=== PATIENT | male | born 1935 | race Caucasian/White ===

== ENCOUNTER 2017-01-29 10:19 | Inpatient (IN) | payer MEDICARE, OTHER ==
--- NOTE | 2017-01-29 10:42 | ED PDOC ---
Arrival/HPI - General Chief Complaint: Weakness/Neurological Deficit Time Seen by Provider: 01/29/17 10:27 Historian: EMS EM Caveat: Altered Mental Status - History of Present Illness Associated Symptoms (Text): 01/29/17 10:39 Patient is brought to the emergency department from home via ambulance. Patient is unsure why he is in the emergency department. He is unable to give any history. EMS reports generalized weakness. There is a dense left-sided hemiparesis. Patient was last seen in the emergency department in December 2015. At that time he had a normal neurological exam and was awake alert oriented 3. He had a normal CT scan of the brain. He signed out AMA and was able to walk out under his own power. Patient has clearly had a neurological event, and the timing is unknown. Therefore, TPA is not indicated. Past Medical History - Infectious Disease Hx of Infectious Diseases: None - Cardiac Hx Cardiac Disorders: Yes Hx Atrial Fibrillation: Yes Hx KS: No Hx Hypertension: Yes Other/Comment: palpitations - Psychiatric Hx Psychophysiologic Disorder: No Hx Anxiety: No Hx Bipolar Disorder: No Hx Depression: No Hx Emotional Abuse: No Hx Hallucinations: No Hx Panic Disorder: No Hx Post Traumatic Stress Disorder: No Hx Psychosis: No Hx Physical Abuse: No Hx Schizophrenia: No Hx Sexual Abuse: No Hx Substance Use: No - Surgical History Other/Comment: Hernia repair - Anesthesia Hx Anesthesia: Yes Hx Anesthesia Reactions: No Hx Malignant Hyperthermia: No - Suicidal Assessment Feels Threatened In Home Enviroment: No Family/Social History - Physician Review Nursing Documentation Reviewed: Yes Family/Social History: Unknown Family HX Smoking Status: Never Smoked Hx Alcohol Use: No Hx Substance Use: No Hx Substance Use Treatment: No Allergies/Home Meds Allergies/Adverse Reactions: Allergies No Known Allergies Allergy (Verified 01/29/17 12:52) Home Medications: Home Meds Medication Instructions Recorded Confirmed Ezetimibe [Zetia] 10 mg PO DAILY 02/16/12 01/29/17 Metformin Hydrochloride [Metformin] 500 mg PO TID 02/16/12 01/29/17 Metoprolol Succinate [Toprol XL] 200 mg PO DAILY 02/16/12 01/29/17 Valsartan [Diovan] 320 mg PO DAILY 02/16/12 01/29/17 Clonidine [Clonidine] 1 appl TD DAILY 06/28/14 01/29/17 Donepezil Hydrochloride [Donepezil 5 mg PO DAILY 06/28/14 01/29/17 Hydrochloride] Furosemide [Furosemide] 40 mg PO DAILY 06/28/14 01/29/17 Potassium Chloride [K-Tab ER] 20 meq PO DAILY 06/28/14 01/29/17 Apixaban [Eliquis] 5 mg PO DAILY 02/16/15 01/29/17 Review of Systems - Review of Systems Systems not reviewed;Unavailable: Altered Mental Status Physical Exam Vital Signs Temp Pulse Resp BP Pulse Ox 01/29/17 12:18 82 22 156/86 H 100 01/29/17 11:35 70 22 159/114 H 100 01/29/17 11:00 96.9 F L 01/29/17 10:34 98.0 F 78 17 159/95 H 99 Temperature: Afebrile Blood Pressure: Hypertensive Pulse: Regular Respiratory Rate: Normal Appearance: Positive for: Well-Appearing, Non-Toxic, Comfortable Pain Distress: None Mental Status: Positive for: other (Awake alert oriented 1 only) Finger Stick Blood Glucose: 193 - Systems Exam Head: Present: Atraumatic, Normocephalic Pupils: Present: PERRL Extroacular Muscles: Present: EOMI Conjunctiva: Present: Normal Mouth: Present: Moist Mucous Membranes Pharnyx: No: ERYTHEMA, EXUDATE, TONSILS ENLARGED Neck: Present: Normal Range of Motion. No: MIDLINE TENDERNESS, Paraspinal Tenderness Respiratory/Chest: Present: Clear to Auscultation, Good Air Exchange, Decreased Breath Sounds. No: Respiratory Distress, Accessory Muscle Use Cardiovascular: Present: Normal S1, S2, Irregular Rhythm (Normal rate). No: Murmurs Abdomen: Present: Normal Bowel Sounds. No: Tenderness, Distention, Peritoneal Signs, Rebound, Guarding Upper Extremity: Present: Normal Inspection. No: Cyanosis, Edema Lower Extremity: Present: Normal Inspection, Other (Right plantar forefoot has a large dark melanocytic collection). No: Edema Neurological: Present: Other (Dense left sided upper and lower hemiparesis. Unable to test sensation coordination gait and stance) Skin: Present: Warm, Dry, Normal Color. No: Rashes Psychiatric: Present: Alert Medical Decision Making ED Course and Treatment: 01/29/17 10:55 EKG shows atrial fibrillation rate approximately [address] and T- wave changes similar to EKG of 01/03/2016 01/29/17 11:19 Patient's son arrived and reports that he last saw his father approximately 2 weeks ago and he was normal at that time. Able to ambulate with no neurological deficits. He spoke with his father yesterday on the telephone and the son reports that the patient seemed "a little out of it" - Lab Interpretations Lab Results: 01/29/17 10:45 01/29/17 10:45 Lab Results 01/29/17 10:45: pO2 27 L, VBG pH 7.32, VBG pCO2 58.0, VBG HCO3 29.9 H, VBG Total CO2 31.7 H, VBG O2 Sat (Calc) 58.2, VBG Base Excess 2.0, VBG Potassium 4.9 , Sodium 141.0, Chloride 103.0, Glucose 204 H, Lactate 1.4, FiO2 21.0, Venous Blood Potassium 4.9 01/29/17 10:45: Alcohol, Quantitative < 10 01/29/17 10:45: Sodium 142, Chloride 103, Potassium 5.0, Carbon Dioxide 30, Anion Gap 14, BUN 26 H, Creatinine 1.2, Est GFR ( Amer) > 60, Est GFR ( Non-Af Amer) 58, Random Glucose 203 H, Calcium 9.6, Phosphorus 3.2, Magnesium 2.1, Total Bilirubin 0.7, AST 19, ALT 22, Alkaline Phosphatase 80, Lactate Dehydrogenase 449, Total Creatine Kinase 28 L, Troponin I < 0.01, Total Protein 7.5, Albumin 3.9, Globulin 3.6, Albumin/Globulin Ratio 1.1 01/29/17 10:45: PT 10.9, INR 1.01, APTT 27.3 01/29/17 10:45: WBC 10.1, RBC 4.80, Hgb 15.6, Hct 45.4, MCV 94.6, MCH 32.5, MCHC 34.4, RDW 13.4, Plt Count 162, MPV 12.1 H, Gran % 65.1, Lymph % (Auto) 24.1 , [place] % (Auto) 8.5 H, Eos % (Auto) 2.2, Baso % (Auto) 0.1, Gran # 6.55 H, Lymph # 2.4, [place] # 0.9 H, Eos # 0.2, Baso # 0.01 - RAD Interpretation Radiology Orders: 01/29/17 10:36 HEAD W/O CONTRAST [CT] Stat 01/29/17 10:37 CHEST PORTABLE [RAD] Stat CT scan of the head as read by the radiologist shows no acute findings. Chest x- ray one view as read by the radiologist shows no acute findings. Category Planner: Radiologist - Medication Orders Current Medication Orders: Discontinued Medications Aspirin (Aspirin Supp) 300 mg RC STAT STA Stop: 01/29/17 11:51 Last Admin: 01/29/17 11:57 Dose: 300 mg NIHSS Scale ([place]) Time Performed: 11:52 - How Severe is the Stoke Baseline Level of Consciousness: 0=Alert LOC to Questions: 0=Both comments correct LOC to commands: 0=Obeys both correctly Best Gaze: 0=Normal Visual: 0=No visual loss Facial: 0=Normal Motor Arm - Left: 4=No movement Motor Arm - Right: 0=No drift Motor Leg - Left: 4=No movement Motor Leg - Right: 0=No drift Limb Ataxia: 0=Absent Sensory: 1=Mild to moderate loss Best Language: 0=No aphasia Dysarthia: 1=Mild to moderate slurring Extinction & Inattention (Neglect): 0=Normal, no object Score: 10 Risk Level: Mod Stroke Risk Disposition/Present on Arrival - Present on Arrival Any Indicators Present on Arrival: No History of DVT/PE: No History of Uncontrolled Diabetes: Yes Urinary Catheter: No History of Decub. Ulcer: No History Surgical Site Infection Following: None - Disposition Have Diagnosis and Disposition been Completed?: Yes Diagnosis: Cerebrovascular accident Disposition: HOSPITALIZED Disposition Time: 11:53 Patient Plan: Admission, Telemetry Patient Problems: Current Active Problems Problem Status Onset Cerebrovascular accident Acute Condition: SERIOUS
[2017-01-29 10:56] LABS: VENOUS BLOOD PH 7.32 (7.32-7.43)
[2017-01-29 10:59] LABS: BASO # 0.01 K/mm3 (0.0-2.0); BASO % 0.1 % (0.0-3.0); EOS # 0.2 (0.0-0.7); EOS % 2.2 % (1.5-5.0); GRAN # 6.55 (1.4-6.5); GRAN % 65.1 % (50.0-68.0); HEMATOCRIT 45.4 % (42.0-52.0); LYMPH # 2.4 (1.2-3.4); LYMPH % 24.1 % (22.0-35.0); MEAN CELL VOLUME 94.6 fl (80.0-105.0); MEAN CORPUSCULAR HEMOGLOBIN 32.5 pg (25.0-35.0); MEAN CORPUSCULAR HGB CONC 34.4 g/dl (31.0-37.0); MEAN PLATELET VOLUME 12.1 fl (7.0-11.0); MONO # 0.9 (0.1-0.6); MONO % 8.5 % (1.0-6.0); RED CELL DISTRIBUTION WIDTH 13.4 % (11.5-14.5); WHITE BLOOD COUNT 10.1 10^3/ul (4.5-11.0)
[2017-01-29 11:05] LABS: ALB/GLOB RATIO 1.1 (1.1-1.8); ALKALINE PHOSPHATASE 80 U/L (38-126); ALT/SGPT 22 U/L (7-56); AST/SGOT 19 U/L (17-59); BILIRUBIN,TOTAL 0.7 mg/dL (0.2-1.3); BLOOD UREA NITROGEN 26 mg/dL (7-21); CALCIUM 9.6 mg/dL (8.4-10.5); CARBON DIOXIDE 30 mmol/L (21-33); CHLORIDE 103 mmol/L (98-107); GFR AFRICAN-AMERICAN > 60; GLUCOSE,RANDOM 203 mg/dL (70-110); INR 1.01 (0.93-1.08); MAGNESIUM 2.1 mg/dL (1.7-2.2); PARTIAL THROMBOPLASTIN TIME 27.3 Seconds (23.7-30.8); PHOSPHOROUS 3.2 mg/dL (2.5-4.5); SODIUM 142 mmol/L (132-148); TOTAL PROTEIN 7.5 g/dL (5.8-8.3)
[2017-01-29 11:16] LABS: TROPONIN I < 0.01 ng/mL
--- NOTE | 2017-01-29 11:19 | RAD ---
HISTORY: ams COMPARISON: Chest x-ray performed 01/03/16 TECHNIQUE: Chest, one view. FINDINGS: Hypoinflation. The patient's chin obscures evaluation of the left lung apex. LUNGS: No focal consolidation. Bilateral hilar prominence. Chronic appearing interstitial markings. PLEURA: No significant pleural effusion identified. No definite pneumothorax . CARDIOVASCULAR: Cardiomegaly. OSSEOUS STRUCTURES: Degenerative changes. VISUALIZED UPPER ABDOMEN: Unremarkable. OTHER FINDINGS: None. IMPRESSION: No focal consolidation, significant pleural effusion, or definite pneumothorax identified. Bilateral hilar prominence. Chronic appearing interstitial markings. Cardiomegaly.
--- NOTE | 2017-01-29 11:41 | CT ---
PROCEDURE: CT HEAD WITHOUT CONTRAST. HISTORY: left weakness COMPARISON: Noncontrast head CT performed 01/03/16 TECHNIQUE: Axial computed tomography images were obtained through the head/brain without intravenous contrast. Radiation dose: Total exam DLP = 1713.80 mGy-cm. This CT exam was performed using one or more of the following dose reduction techniques: Automated exposure control, adjustment of the mA and/or kV according to patient size, and/or use of iterative reconstruction technique. FINDINGS: Examination limited by patient obliquity. HEMORRHAGE: No intracranial hemorrhage. BRAIN: Diffuse atrophy with prominence of the ventricles and sulci noted. No mass effect or edema. Dense intracranial atherosclerotic calcifications. Scattered periventricular and subcortical white matter hypodensities, which are nonspecific, but often seen with chronic microvascular ischemic disease. VENTRICLES: No hydrocephalus. CALVARIUM: Unremarkable. PARANASAL SINUSES: Opacification of the bilateral maxillary sinuses. Mild mucosal thickening of the ethmoid air cells. MASTOID AIR CELLS: Unremarkable as visualized. No inflammatory changes. OTHER FINDINGS: None. IMPRESSION: Generalized atrophy. Nonspecific white matter changes. Please note that MRI with diffusion imaging is more sensitive in the detection of acute ischemic event. Opacification of the bilateral maxillary sinuses. Mild mucosal thickening of the ethmoid air cells. Correlate clinically for sinusitis.
[2017-01-29 13:17] LABS: URINE BILIRUBIN NEGATIVE (NEGATIVE); URINE BLOOD NEGATIVE (NEGATIVE); URINE GLUCOSE (UA) 100 mg/dL (NEGATIVE); URINE KETONE NEGATIVE (NEGATIVE); URINE LEUKOCYTE ESTERASE NEGATIVE Leu/uL (NEGATIVE); URINE PROTEIN 30 mg/dL (<30 mg/dL); URINE UROBILINOGEN 0.2 E.U./dL (<1 E.U./dL)
[2017-01-29 13:18] LABS: URINE APPEARANCE CLEAR (CLEAR); URINE COLOR LIGHT YELLOW (YELLOW)
[2017-01-29 13:41] LABS: URINE BACTERIA SMALL (NEG); URINE EPITHELIAL CELLS 0 - 2 /hpf (0-5); URINE RBC 0 - 2 /hpf (0-2); URINE WBC 0 - 2 /hpf (0-6)
[2017-01-29 15:50] VITALS: BMI 34.1
[2017-01-29] MEDS ORDERED: Pneumococcal 23-Valent Vaccine IM ONE (15:50)
[2017-01-29] MEDS: Metoprolol Succinate 100 mg XL Tab PO SCH (17:49)
[2017-01-29] MEDS: Potassium Chloride 20 mEq ER Tab PO SCH (17:49)
[2017-01-29] MEDS: Sodium Chloride 0.45% 1,000 ML IV SCH (17:50)
--- NOTE | 2017-01-29 23:39 | CP.PCM.PN ---
Subjective - Date & Time of Evaluation Date of Evaluation: 01/29/17 Time of Evaluation: 23:39 - Subjective Subjective: Patient was seen because nurse had called and told that family members are in the room and they want patient to have xanax as patient gets nervous when family members are in the room. Family members are going to stay overnight. Patient has no complaint at this time. Medical record was reviewed. 81 year old male was admitted with right sided hemiparesis, was not able tell what happened to him. PMH:Atrial fibrillation,HTN,hernia repair. Objective - Vital Signs/Intake and Output Vital Signs (last 24 hours): Temp Pulse Resp BP Pulse Ox 97.8 F 83 20 161/106 H 100 01/29/17 18:00 01/29/17 22:00 01/29/17 18:00 01/29/17 21:10 01/29/17 12:18 Intake and Output: 01/29/17 01/30/17 18:59 06:59 Intake Total 0 Output Total 0 Balance 0 - Medications Medications: Current Medications Apixaban (Eliquis) 5 mg PO DAILY [facility] PRN Reason: Protocol Last Admin: 01/29/17 17:48 Dose: 5 mg Clonidine HCl (Catapres Tts1 0.1 Mg/24 Hr) 1 patch TD Sa@1800 [facility] Last Admin: 01/29/17 17:50 Dose: 1 patch Donepezil HCl (Aricept) 10 mg PO HS [facility] Last Admin: 01/29/17 22:05 Dose: 10 mg Ezetimibe (Zetia) 10 mg PO DAILY [facility] Last Admin: 01/29/17 17:49 Dose: 10 mg Furosemide (Lasix) 40 mg PO DAILY [facility] Last Admin: 01/29/17 17:49 Dose: 40 mg Sodium Chloride (Sodium Chloride 0.45%) 1,000 mls @ 75 mls/hr IV .[id number] [facility] Last Admin: 01/29/17 17:50 Dose: 75 mls/hr Metformin HCl (Glucophage) 500 mg PO WM [facility] Last Admin: 01/29/17 17:47 Dose: Not Given Metoprolol Succinate (Toprol Xl) 200 mg PO BRK [facility] Last Admin: 01/29/17 17:49 Dose: 200 mg Potassium Chloride (K-Dur 20 Meq Er Tab) 20 meq PO BRK [facility] Last Admin: 01/29/17 17:49 Dose: 20 meq Valsartan (Diovan) 320 mg PO DAILY [facility] Last Admin: 01/29/17 17:49 Dose: 320 mg - Labs Labs: PT 10.9 Seconds (9.9-11.8) 01/29/17 10:45 INR 1.01 (0.93-1.08) 01/29/17 10:45 APTT 27.3 Seconds (23.7-30.8) 01/29/17 10:45 Laboratory Last Values WBC 10.1 10^3/ul (4.5-11.0) 01/29/17 10:45 RBC 4.80 10^6/uL (3.5-6.1) 01/29/17 10:45 Hgb 15.6 g/dL (14.0-18.0) 01/29/17 10:45 Hct 45.4 % (42.0-52.0) 01/29/17 10:45 MCV 94.6 fl (80.0-105.0) 01/29/17 10:45 MCH 32.5 pg (25.0-35.0) 01/29/17 10:45 MCHC 34.4 g/dl (31.0-37.0) 01/29/17 10:45 RDW 13.4 % (11.5-14.5) 01/29/17 10:45 Plt Count 162 10^3/uL (120.0-450.0) 01/29/17 10:45 MPV 12.1 fl (7.0-11.0) H 01/29/17 10:45 Gran % 65.1 % (50.0-68.0) 01/29/17 10:45 Lymph % (Auto) 24.1 % (22.0-35.0) 01/29/17 10:45 [place] % (Auto) 8.5 % (1.0-6.0) H 01/29/17 10:45 Eos % (Auto) 2.2 % (1.5-5.0) 01/29/17 10:45 Baso % (Auto) 0.1 % (0.0-3.0) 01/29/17 10:45 Gran # 6.55 (1.4-6.5) H 01/29/17 10:45 Lymph # 2.4 (1.2-3.4) 01/29/17 10:45 [place] # 0.9 (0.1-0.6) H 01/29/17 10:45 Eos # 0.2 (0.0-0.7) 01/29/17 10:45 Baso # 0.01 K/mm3 (0.0-2.0) 01/29/17 10:45 PT 10.9 Seconds (9.9-11.8) 01/29/17 10:45 INR 1.01 (0.93-1.08) 01/29/17 10:45 APTT 27.3 Seconds (23.7-30.8) 01/29/17 10:45 pO2 27 mm/Hg (30-55) L 01/29/17 10:45 VBG pH 7.32 (7.32-7.43) 01/29/17 10:45 VBG pCO2 58.0 (40-60) 01/29/17 10:45 VBG HCO3 29.9 mmol/l (21-28) H 01/29/17 10:45 VBG Total CO2 31.7 mmol.L (22-28) H 01/29/17 10:45 VBG O2 Sat (Calc) 58.2 % (40-65) 01/29/17 10:45 VBG Base Excess 2.0 mmol/L (0.0-2.0) 01/29/17 10:45 VBG Potassium 4.9 mmol/L (3.6-5.2) 01/29/17 10:45 Sodium 141.0 mmol/L (132-148) 01/29/17 10:45 Chloride 103.0 mmol/L (98-107) 01/29/17 10:45 Glucose 204 mg/dl (75-110) H 01/29/17 10:45 Lactate 1.4 mmol/L (0.7-2.1) 01/29/17 10:45 FiO2 21.0 % 01/29/17 10:45 Sodium 142 mmol/L (132-148) 01/29/17 10:45 Potassium 5.0 mmol/L (3.6-5.0) 01/29/17 10:45 Chloride 103 mmol/L (98-107) 01/29/17 10:45 Carbon Dioxide 30 mmol/L (21-33) 01/29/17 10:45 Anion Gap 14 (10-20) 01/29/17 10:45 BUN 26 mg/dL (7-21) H 01/29/17 10:45 Creatinine 1.2 mg/dL (0.5-1.4) 01/29/17 10:45 Est GFR ( Amer) > 60 01/29/17 10:45 Est GFR (Non-Af Amer) 58 01/29/17 10:45 POC Glucose (mg/dL) 197 mg/dL (65-110) H 01/29/17 17:46 Random Glucose 203 mg/dL (70-110) H 01/29/17 10:45 Calcium 9.6 mg/dL (8.4-10.5) 01/29/17 10:45 Phosphorus 3.2 mg/dL (2.5-4.5) 01/29/17 10:45 Magnesium 2.1 mg/dL (1.7-2.2) 01/29/17 10:45 Total Bilirubin 0.7 mg/dL (0.2-1.3) 01/29/17 10:45 AST 19 U/L (17-59) 01/29/17 10:45 ALT 22 U/L (7-56) 01/29/17 10:45 Alkaline Phosphatase 80 U/L (38-126) 01/29/17 10:45 Lactate Dehydrogenase 449 U/L (333-699) 01/29/17 10:45 Total Creatine Kinase 28 U/L (35-230) L 01/29/17 10:45 Troponin I < 0.01 ng/mL 01/29/17 10:45 Total Protein 7.5 g/dL (5.8-8.3) 01/29/17 10:45 Albumin 3.9 g/dL (3.0-4.8) 01/29/17 10:45 Globulin 3.6 gm/dL 01/29/17 10:45 Albumin/Globulin Ratio 1.1 (1.1-1.8) 01/29/17 10:45 Venous Blood Potassium 4.9 mmol/L (3.6-5.2) 01/29/17 10:45 Urine Color Light yellow (YELLOW) 01/29/17 12:50 Urine Appearance Clear (CLEAR) 01/29/17 12:50 Urine pH 7.0 (4.7-8.0) 01/29/17 12:50 Ur Specific [place] 1.020 (1.005-1.035) 01/29/17 12:50 Urine Protein 30 mg/dL (<30 mg/dL) H 01/29/17 12:50 Urine Glucose (UA) 100 mg/dL (NEGATIVE) H 01/29/17 12:50 Urine Ketones Negative mg/dL (NEGATIVE) 01/29/17 12:50 Urine Blood Negative (NEGATIVE) 01/29/17 12:50 Urine Nitrate Negative (NEGATIVE) 01/29/17 12:50 Urine Bilirubin Negative (NEGATIVE) 01/29/17 12:50 Urine Urobilinogen 0.2 E.U./dL (<1 E.U./dL) 01/29/17 12:50 Ur Leukocyte Esterase Negative [place]/uL (NEGATIVE) 01/29/17 12:50 Urine RBC 0 - 2 /hpf (0-2) 01/29/17 12:50 Urine WBC 0 - 2 /hpf (0-6) 01/29/17 12:50 Ur Epithelial Cells 0 - 2 /hpf (0-5) 01/29/17 12:50 Urine Bacteria Small (NEG) 01/29/17 12:50 Hyaline Casts 0 - 2 /hpf 01/29/17 12:50 Urine Opiates Screen Negative (NEGATIVE) 01/29/17 12:50 Urine Methadone Screen Negative (NEGATIVE) 01/29/17 12:50 Ur Barbiturates Screen Negative (NEGATIVE) 01/29/17 12:50 Ur Phencyclidine Scrn Negative (NEGATIVE) 01/29/17 12:50 Ur Amphetamines Screen Negative (NEGATIVE) 01/29/17 12:50 U Benzodiazepines Scrn Negative (NEGATIVE) 01/29/17 12:50 U Oth Cocaine Metabols Negative (NEGATIVE) 01/29/17 12:50 U Cannabinoids Screen Negative (NEGATIVE) 01/29/17 12:50 Alcohol, Quantitative < 10 mg/dL (0-10) 01/29/17 10:45 - Constitutional Appears: Well, No Acute Distress - Head Exam Head Exam: ATRAUMATIC, NORMAL INSPECTION, NORMOCEPHALIC - Eye Exam Eye Exam: Normal appearance - ENT Exam ENT Exam: Normal External Ear Exam - Neck Exam Neck Exam: Normal Inspection - Respiratory Exam Respiratory Exam: NORMAL BREATHING PATTERN - Cardiovascular Exam Cardiovascular Exam: absent: JVD - GI/Abdominal Exam GI & Abdominal Exam: absent: Distended - Rectal Exam Rectal Exam: Deferred - Exam Additional comments: Deferred. - Back Exam Back Exam: NORMAL INSPECTION - Neurological Exam Neurological Exam: Alert, Awake - Psychiatric Exam Psychiatric exam: Anxious - Skin Skin Exam: Normal Color Assessment and Plan - Assessment and Plan (Free Text) Assessment: Anxiety. CVA. Atrial fibrillation. Hypertension. Dehydration. Plan: Xanax 0.25mg po stat. Continue present management.
--- NOTE | 2017-01-30 01:57 | CARD ---
APPROVED REPORT EKG Measurement Heart [id number] <Conclusion> Atrial fibrillation Left axis deviation Voltage criteria for left ventricular hypertrophy Nonspecific ST and T wave abnormality Abnormal ECG
[2017-01-30] MEDS: Sodium Chloride 0.45% 1,000 ML IV SCH (06:38)
[2017-01-30] MEDS: Metoprolol Succinate 100 mg XL Tab PO SCH (09:11)
[2017-01-30] MEDS: Potassium Chloride 20 mEq ER Tab PO SCH (09:12)
--- NOTE | 2017-01-30 14:35 | CT ---
PROCEDURE: CT HEAD WITHOUT CONTRAST. HISTORY: cva COMPARISON: Noncontrast head CT performed 01/29/17 TECHNIQUE: Axial computed tomography images were obtained through the head/brain without intravenous contrast. Radiation dose: Total exam DLP = 871.01 mGy-cm. This CT exam was performed using one or more of the following dose reduction techniques: Automated exposure control, adjustment of the mA and/or kV according to patient size, and/or use of iterative reconstruction technique. FINDINGS: Streak artifact obscures evaluation of the skullbase. HEMORRHAGE: No intracranial hemorrhage. BRAIN: Diffuse atrophy with prominence of the ventricles and sulci noted. Dense intracranial atherosclerotic calcifications. No mass effect or edema. Scattered periventricular and subcortical white matter hypodensities, which are nonspecific, but often seen with chronic microvascular ischemic disease. Please note that MRI with diffusion imaging is more sensitive in the detection of acute ischemic event. VENTRICLES: No hydrocephalus. CALVARIUM: Unremarkable. PARANASAL SINUSES: Opacification of bilateral maxillary sinuses. MASTOID AIR CELLS: Unremarkable as visualized. No inflammatory changes. OTHER FINDINGS: None. IMPRESSION: Generalized atrophy. Nonspecific white matter changes.
[2017-01-30] MEDS: Insulin Reg-LOW-Coverage SC SCH ×2 (17:45→22:25)
[2017-01-30] MEDS: Nystatin 100,000 Units/gm Topical Pow(15 gm) TOP SCH (17:52)
--- NOTE | 2017-01-30 18:01 | CON ---
DATE: 01/30/2017 CHIEF COMPLAINT: Left-sided weakness. HISTORY OF PRESENT ILLNESS: This is a 81-year-old man with past medical history of atrial fibrillation on Eliquis, dyslipidemia, hypertension, history of hernia repair, history of cognitive impairment on Aricept. He apparently woke up and was noticed by the family members that he had some left-sided weakness with some slurred speech. During my evaluation, he does have left-sided neglect and left-sided weakness, decreased tone on the left side compared to the right. He had elevated systolic and diastolic blood pressures when he was in the ER. His swallow evaluations have been done. The patient's evaluation therapist recommended dysphagia precautions and to continue with IV medications for now. CAT scan of the head showed no acute intracranial abnormality, some mild encephalomalacia on the right frontoparietal area likely from prior CVA. PAST MEDICAL HISTORY: History of atrial fibrillation, hypertension, dyslipidemia, hernia repair. REVIEW OF SYSTEMS: A 14-point review of systems is negative except per the HPI. SOCIAL HISTORY: No illicit drug use, smoking, or EtOH abuse. FAMILY HISTORY: Noncontributory. MEDICATIONS: Reviewed by nurse practitioner, see med reconciliation sheet.. ALLERGIES: NO KNOWN DRUG ALLERGIES. PHYSICAL EXAMINATION VITAL SIGNS: Temperature 98.5, pulse rate of 89, blood pressure 170/91, respiratory rate of 18, oxygen saturation 97% via room air. GENERAL: The patient is sitting up in bed, in no acute distress. HEENT: Head is atraumatic and normocephalic. PERRLA. Extraocular muscles are intact. NECK: Supple. No JVD. No adenopathy noted. LUNGS: Clear to auscultation. No adventitious sounds. HEART: S1 and S2, normal rate and rhythm. No murmurs, rubs, or gallops. ABDOMEN: Soft, nontender, nondistended. Bowel sounds are present. EXTREMITIES: No clubbing. No cyanosis. Peripheral pulses 2+ felt bilaterally. NEUROLOGIC: The patient is alert, oriented to person and place, not much to month and year. Speech is hypophonic with some mild dysarthria. Cranial nerves II through XII intact except for some left facial droop. Motor exam: Decreased tone on the left upper and lower extremities compared to the right, left-sided weakness compared to the right. Left toe upgoing, right toe equivocal. Sensory exam: Withdrawals are localized to noxious stimulus. There is sensory neglect on the left. DTRs are 2+ throughout, 1 at the ankles. Coordination and gait deferred for now. LABORATORY DATA: Sodium is 142, potassium is 5, chloride of 103, carbon dioxide 30, BUN of 26, creatinine 1.2, random glucose of 203. ASSESSMENT AND PLAN: This is a 81-year-old man with past medical history of atrial fibrillation on Eliquis, dyslipidemia, hypertension, who came in to the hospital because it was noticed by the family when he woke up that he had left-sided weakness and mild left facial flattening of the nasolabial fold. Upon my neuro examination, he does have left-sided hemiparesis and left-sided neglect. His left-sided weakness is likely secondary to right MCA territory infarct likely secondary to diffuse atherosclerosis superimposed on underlying uncontrolled hypertension, dyslipidemia. At this time, recommend: 1. Permissive hypertension for 24 hours and over 24 hours we will decrease to goal of 130 to 140 mmHg. 2. For now, since the patient cannot swallow, give rectal aspirin and eventually when the patient passes the swallow evaluation, he will eventually be back on his Eliquis. 3. Continue with Aricept 10 mg p.o. at bedtime for cognitive impairment. 4. We will recommend a homocystine level and A1c. 5. Carotid Doppler bilaterally as well as vertebral arteries. 6. MRI of the brain without contrast to search for an acute infarct. 7. Physical and occupational therapy evaluation and treatment. The patient will eventually need acute rehab. 8. At this time, continue current present medical management. Case discussed with the family. Jonathan Cuevas MD
[2017-01-30] MEDS ORDERED: Iohexol 350 MG/100 ML VIAL ONE (18:54)
[2017-01-30] MEDS ORDERED: Iodixanol 320 MG/ML 100 ML BOTTLE IV ONE (19:23)
--- NOTE | 2017-01-30 19:45 | MRI ---
EXAM: MR Head Without Intravenous Contrast CLINICAL HISTORY: The patient age is 81 years old and is male; Signs and symptoms; Altered mental status/memory loss; Confusion or disorientation; Additional info: CVA Facility exam id and description: Mri br s brain without contrast TECHNIQUE: Magnetic resonance images of the head/brain without intravenous contrast in multiple planes. COMPARISON: No relevant prior studies available. FINDINGS: Artifacts: Motion artifact significantly limits this study. Brain: Restricted diffusion is identified within the medial right frontal lobe, consistent with acute infarct. There are scattered foci of high FLAIR signal intensity within the cerebral white matter, with FLAIR hyperintensity most significant in the periventricular region. There is no mass effect or restricted diffusion associated with these foci. In a patient this age, this likely represents chronic small vessel ischemic disease. There is prominence of the ventricles and sulci, compatible with atrophy. FLAIR hyperintense gliosis is visualized in the area of restricted diffusion. Ventricles: There is mild ventriculomegaly. Normal pressure hydrocephalus cannot be excluded. Bones/joints: No acute abnormality. Sinuses: Artifact limits evaluation of the maxillary sinuses and ethmoid air cells. Mastoid air cells: No mastoid effusion. Orbits: Suboptimal evaluation due to artifact. Other: There is a high riding right internal jugular bulb. IMPRESSION: 1. Restricted diffusion is identified within the medial right frontal lobe, consistent with acute infarct. 2. There are scattered foci of high FLAIR signal intensity within the cerebral white matter, with FLAIR hyperintensity most significant in the periventricular region. In a patient this age, this likely represents chronic small vessel ischemic disease. 3. Atrophy. 4. There is mild ventriculomegaly. Normal pressure hydrocephalus cannot be excluded. 5. Additional findings described above. EXAM: MR Angiography Head Without Intravenous Contrast EXAM DATE/TIME: 01/30/2017 1:32 PM CLINICAL HISTORY: The patient age is 81 years old and is male; Signs and symptoms; Altered mental status/memory loss; Confusion or disorientation; Additional info: CVA Facility exam id and description: Mri br s brain without contrast TECHNIQUE: Magnetic resonance angiography images of the head without intravenous contrast. COMPARISON: CT - HEAD W/O CONTRAST 01/29/2017 11:17:07 AM FINDINGS: Right internal carotid artery: Nondiagnostic evaluation due to artifact. Right anterior cerebral artery: Nondiagnostic evaluation due to artifact. Right middle cerebral artery: Nondiagnostic evaluation due to artifact. Right posterior cerebral artery: Nondiagnostic evaluation due to artifact. Right vertebral artery: Nondiagnostic evaluation due to artifact. Left internal carotid artery: Flow is visualized within the left internal carotid artery, but the evaluation is otherwise nondiagnostic due to artifact. Left anterior cerebral artery: Nondiagnostic evaluation due to artifact. Left middle cerebral artery: Nondiagnostic evaluation due to artifact. Left posterior cerebral artery: Nondiagnostic evaluation due to artifact. Left vertebral artery: The basilar artery and distal left vertebral artery are patent. Basilar artery: See above. IMPRESSION: The basilar artery and distal left vertebral artery are patent. The study is otherwise nondiagnostic. Repeat MRA is recommended.
--- NOTE | 2017-01-30 20:49 | CT ---
EXAM: CT Angiography Head With Intravenous Contrast EXAM DATE/TIME: 01/30/2017 3:41 PM CLINICAL HISTORY: The patient age is 81 years old and is male; Condition or disease; Cerebrovascular disease; Patient HX: CVA Facility exam id and description: Ct angiohd angiography head TECHNIQUE: Axial computed tomographic angiography images of the head with intravenous contrast using CT angiography protocol. All CT scans at this facility use one or more dose reduction techniques, viz.: automated exposure control; ma/kV adjustment per patient size (including targeted exams where dose is matched to indication; i.e. head); or iterative reconstruction technique. MIP reconstructed images were created and reviewed. Coronal and sagittal reformatted images were created and reviewed. CONTRAST: 97 mL of OMNIPAQUE 350 administered intravenously. COMPARISON: CT - HEAD W/O CONTRAST 01/30/2017 1:56:25 PM FINDINGS: Right internal carotid artery: There is atherosclerosis of the distal internal carotid arteries bilaterally, with less than 50% stenosis bilaterally. No aneurysm. Right anterior cerebral artery: There is severe stenosis or occlusion of the A3 segment of the right anterior cerebral artery, with flow poorly visualized distal to this region. No aneurysm. Right middle cerebral artery: No occlusion or significant stenosis. No aneurysm. Right posterior cerebral artery: No occlusion or significant stenosis. No aneurysm. Right vertebral artery: There is stenosis of the distal right vertebral artery. Left internal carotid artery: See above. Left anterior cerebral artery: No occlusion or significant stenosis. No aneurysm. Left middle cerebral artery: No occlusion or significant stenosis. No aneurysm. Left posterior cerebral artery: No occlusion or significant stenosis. No aneurysm. Left vertebral artery: A dominant distal left vertebral artery is visualized. Basilar artery: No significant stenosis. No occlusion. No aneurysm. Brain: There is prominence of the ventricles and sulci, compatible with atrophy. Sinuses: There is opacification of the bilateral maxillary sinuses. IMPRESSION: 1. There is severe stenosis or occlusion of the A3 segment of the right anterior cerebral artery, with flow poorly visualized distal to this region. 2. 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 3. There is stenosis of the distal right vertebral artery. 4. A dominant distal left vertebral artery is visualized. 5. There is atherosclerosis of the distal internal carotid arteries bilaterally, with less than 50% stenosis bilaterally. 6. Atrophy. 7. Incidental/non-acute findings are described above.
[2017-01-31] MEDS: Sodium Chloride 0.45% 1,000 ML IV SCH (00:11)
--- NOTE | 2017-01-31 06:27 | CON ---
DATE: 01/30/2017 REASON FOR CONSULTATION: Status post stroke, left upper and lower extremity weakness, and may have sleep apnea syndrome. HISTORY OF PRESENT ILLNESS: This is a 81-year-old gentleman. found him to have weakness of the left upper extremity with some facial droop and called ambulance and brought him to the emergency room. He was seen by Neurology, and CTA and MRI of the brain have been ordered. He has a known history of atrial fibrillation, hypertension. Presently lying in the bed, is at bedside. Nursing is trying to get an IV. No headache, rhinitis, or snoring. No chest pain, no palpitation. No nausea, vomiting, or diarrhea. No leg pain, no leg swelling. PAST MEDICAL HISTORY: As per history of present illness. Diabetes. ALLERGIES: NONE KNOWN. FAMILY HISTORY: No significant cardiopulmonary disease reported. SOCIAL HISTORY: Nonsmoker, nondrinker. MEDICATIONS: He is on hydralazine 10 mg IV q.6 hours p.r.n., Aricept 10 mg daily, aspirin 300 mg rectally daily, Ativan 0.5 mg p.r.n., Catapres patch 0.1 mg, Diovan 320 mg daily, Eliquis 5 mg twice a day, insulin coverage, potassium 20 mEq daily, Lasix 40 mg daily, Lipitor 10 mg daily, IV fluid half normal saline 75 mL/hour, Toprol XL 200 mg daily, Zetia 10 mg daily. REVIEW OF SYSTEMS: Denies any headache or rhinitis. No chest pain. No nausea, no abdominal pain. No dysuria. No leg pain or leg swelling. He has left upper and lower extremity weakness. PHYSICAL EXAMINATION GENERAL: Lying in the bed, in no acute distress, has facial droop. VITAL SIGNS: Temperature is 98, heart rate is 81, respiratory rate 18, blood pressure 185/101, pulse ox 97% on room air. HEENT: Moist mucous membranes. Crowded airway. Mallampati score is 4. NECK: Supple. No JVD. LUNGS: Fair air flow with a few rhonchi. HEART: S1, S2. ABDOMEN: Soft, nontender. No organomegaly. EXTREMITIES: No edema. NEUROLOGIC: Awake, alert, follows simple commands. LABORATORY DATA: Shows hemoglobin 15.6, hematocrit 45.4, WBC 10.1, platelets 162. INR 1.01, PTT 27. Blood gases, which is VB shows pH 7.32, pCO2 of 58, O2 of 27. Sodium 142, potassium 5.0, chloride 103, bicarbonate 30, BUN 26, creatinine 1.2, glucose 168, calcium 9.6, phosphorus 3.2, magnesium 2.1, AST 19, ALT 22, alkaline phosphatase is 80. LDH 49. Troponin less than 0.01. Toxicology unremarkable. Urinalysis shows protein 30+, glucose is 100. Microbiology, blood cultures have been negative. 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 There is stenosis of the distal right vertebral artery. A dominant distal left vertebral artery is visualized. There is atherosclerosis of distal internal carotid artery bilaterally with less than 50% stenosis bilaterally. MRI of the brain was done which shows right internal carotid artery with some artifact. There is a restricted diffusion identified within the medial right frontal lobe consistent with acute infarct. There are scattered foci of the higher FLAIR signal intensity within the cerebral white matter with FLAIR hyperintensity most significant in the periventricular region, likely representing chronic small vessel disease. IMPRESSION AND PLAN: Stroke, history of hypertension, diabetes, atrial fibrillation. He has a component of sleep apnea syndrome. Case was discussed nursing staff and also spoke to the patient's at bedside. Continue IV fluid, continue anticoagulation, gastric prophylaxis. Neurology followup. We will place him on CPAP 8 cm with 30% oxygen while sleeping. Echocardiogram to evaluate cardiac function and rule out LV thrombus. We will suggest placing him on antiplatelet and statins. Thank you and we will follow with you. Huber Lang MD
[2017-01-31 07:05] LABS: BLOOD UREA NITROGEN 19 mg/dL (7-21); CALCIUM 9.1 mg/dL (8.4-10.5); CARBON DIOXIDE 25 mmol/L (21-33); CHLORIDE 99 mmol/L (98-107); CHOLESTEROL 167 mg/dL (130-200); GFR AFRICAN-AMERICAN > 60; GLUCOSE,RANDOM 154 mg/dL (70-110); POTASSIUM 3.3 mmol/L (3.6-5.0); SODIUM 138 mmol/L (132-148)
[2017-01-31 07:11] LABS: BASO # 0.02 K/mm3 (0.0-2.0); BASO % 0.1 % (0.0-3.0); EOS # 0.1 (0.0-0.7); EOS % 0.9 % (1.5-5.0); GRAN # 10.03 (1.4-6.5); GRAN % 72.2 % (50.0-68.0); HEMATOCRIT 48.8 % (42.0-52.0); LYMPH # 2.4 (1.2-3.4); LYMPH % 17.5 % (22.0-35.0); MEAN CELL VOLUME 91.7 fl (80.0-105.0); MEAN CORPUSCULAR HEMOGLOBIN 32.5 pg (25.0-35.0); MEAN CORPUSCULAR HGB CONC 35.5 g/dl (31.0-37.0); MEAN PLATELET VOLUME 12.2 fl (7.0-11.0); MONO # 1.3 (0.1-0.6); MONO % 9.3 % (1.0-6.0); RED CELL DISTRIBUTION WIDTH 13.4 % (11.5-14.5); WHITE BLOOD COUNT 13.9 10^3/ul (4.5-11.0)
[2017-01-31] MEDS: Insulin Reg-LOW-Coverage SC SCH ×4 (07:46→23:45)
[2017-01-31] MEDS: Metoprolol Succinate 100 mg XL Tab PO SCH (08:19)
[2017-01-31] MEDS: Potassium Chloride 20 mEq ER Tab PO SCH (08:19)
--- NOTE | 2017-01-31 08:32 | CP.PCM.PN ---
Subjective - Date & Time of Evaluation Date of Evaluation: 01/30/17 Time of Evaluation: 12:00 - Subjective Subjective: no new c/ostable , more weak left upper exts. on eliquis, bp 160-[address] ordered Objective - Vital Signs/Intake and Output Vital Signs (last 24 hours): Temp Pulse Resp BP Pulse Ox 98.1 F 89 20 128/63 96 01/31/17 05:41 01/31/17 05:41 01/31/17 05:41 01/31/17 05:41 01/31/17 05:41 Intake and Output: 01/31/17 01/31/17 06:59 18:59 Intake Total 900 Output Total 0 Balance 900 - Medications Medications: Current Medications Apixaban (Eliquis) 5 mg PO BID [facility] PRN Reason: Protocol Aspirin (Aspirin Supp) 300 mg RC DAILY [facility] Atorvastatin Calcium (Lipitor) 10 mg PO DIN [facility] Last Admin: 01/30/17 17:45 Dose: Not Given Clonidine HCl (Catapres Tts1 0.1 Mg/24 Hr) 1 patch TD Sa@1800 [facility] Last Admin: 01/29/17 17:50 Dose: 1 patch Donepezil HCl (Aricept) 10 mg PO HS [facility] Last Admin: 01/30/17 22:25 Dose: Not Given Ezetimibe (Zetia) 10 mg PO DAILY [facility] Last Admin: 01/30/17 09:10 Dose: 10 mg Hydralazine HCl (Apresoline) 10 mg IVP Q6 PRN PRN Reason: Systolic Blood Pressure Last Admin: 01/30/17 23:15 Dose: 10 mg Sodium Chloride (Sodium Chloride 0.45%) 1,000 mls @ 75 mls/hr IV .[id number] [facility] Last Admin: 01/31/17 00:11 Dose: 75 mls/hr Insulin Human Regular (Humulin R Low) 0 units SC ACHS [facility] PRN Reason: Protocol Last Admin: 01/31/17 07:46 Dose: Not Given Lorazepam (Ativan) 0.5 mg IVP .ONCE A DAY PRN; Protocol PRN Reason: Anxiety Last Admin: 01/31/17 00:15 Dose: 0.5 mg Metoprolol Succinate (Toprol Xl) 200 mg PO BRK [facility] Last Admin: 01/31/17 08:19 Dose: Not Given Nystatin (Nystop Topical Powder) 0 gm TOP BID [facility] Last Admin: 01/30/17 17:52 Dose: 100,000 u Potassium Chloride (K-Dur 20 Meq Er Tab) 20 meq PO BRK [facility] Last Admin: 01/31/17 08:19 Dose: Not Given Valsartan (Diovan) 320 mg PO DAILY [facility] Last Admin: 01/30/17 09:10 Dose: 320 mg - Labs Labs: 01/31/17 06:44 01/31/17 06:44 PT 10.9 Seconds (9.9-11.8) 01/29/17 10:45 INR 1.01 (0.93-1.08) 01/29/17 10:45 APTT 27.3 Seconds (23.7-30.8) 01/29/17 10:45 - Constitutional Appears: Well - Eye Exam Eye Exam: EOMI, Normal appearance - ENT Exam ENT Exam: Normal Exam - GI/Abdominal Exam GI & Abdominal Exam: Normal Bowel Sounds - Extremities Exam Extremities Exam: Normal Inspection - Back Exam Back Exam: NORMAL INSPECTION - Neurological Exam Neuro motor strength exam: Left Upper Extremity: 0, Left Lower Extremity: 0 - Psychiatric Exam Psychiatric exam: Anxious Assessment and Plan (1) Acute CVA (cerebrovascular accident) Status: Acute (2) Hypertension Status: Acute (3) Atrial fibrillation Status: Acute (4) Diabetes 1.5, managed as type 2 Status: Acute (5) Cerebrovascular accident Status: Acute - Assessment and Plan (Free Text) Plan: will get mri, ct angio, aspirin suppository, npo, bp monitoring will f/up with consults , spoke with family , son,
[2017-01-31] MEDS ORDERED: Potassium Chloride 20 MEQ in Sodium Chloride 0.45% 1,000 ML IV SCH (09:04)
--- NOTE | 2017-01-31 09:26 | RAD ---
HISTORY: leucocytosis COMPARISON: Chest x-ray performed 01/29/17 TECHNIQUE: Chest, one view. FINDINGS: Emanation limited by habitus and hypoinflation. LUNGS: Bilateral hilar prominence. Vascular crowding due to hypoinflation versus pulmonary venous congestion. PLEURA: No significant pleural effusion identified. No definite pneumothorax . CARDIOVASCULAR: Cardiomegaly. Ectatic aorta. OSSEOUS STRUCTURES: No acute osseous abnormality identified. VISUALIZED UPPER ABDOMEN: Elevation of the right hemidiaphragm. OTHER FINDINGS: None. IMPRESSION: Hypoinflation. Cardiomegaly. Vascular crowding due to hypoinflation versus pulmonary venous congestion. Bilateral hilar prominence.
[2017-01-31] MEDS: Enoxaparin 80 mg Syringe SC SCH (09:31)
[2017-01-31] MEDS: Nystatin 100,000 Units/gm Topical Pow(15 gm) TOP SCH ×2 (09:32→17:05)
--- NOTE | 2017-01-31 13:56 | CP.PCM.HP ---
History of Present Illness - History of Present Illness History of Present Illness: patient was seen on 01/29/2017 at 5 pm. brought by ems. cannot get up from bed in am pt is 81 male h/o poor hypertension controll. dm type 2, high cholesterol. chronic a fib on eliquis. c/o left side weakness,since morning , 3 hours later was seen in er, bp 180/110 Present on Admission - Present on Admission Any Indicators Present on Admission: No History of DVT/PE: No History of Uncontrolled Diabetes: No Urinary Catheter: No Decubitus Ulcer Present: No History Surgical Site Infection Following: None Review of Systems - Constitutional Constitutional: As Per HPI - EENT Eyes: As Per HPI - Cardiovascular Cardiovascular: Irregular Heart Rhythm, Palpitations - Genitourinary Genitourinary: Hematuria, Urinary Incontinence - Musculoskeletal Musculoskeletal: Abnormal Gait, Arthralgias, Joint Swelling - Psychiatric Psychiatric: Anxiety Past Patient History - Infectious Disease Hx of Infectious Diseases: None - Past Social History Smoking Status: Never Smoked - CARDIAC Hx Cardiac Disorders: Yes Hx Hypertension: Yes - PULMONARY Hx Respiratory Disorders: No - NEUROLOGICAL Hx Neurological Disorder: Yes HX Cerebrovascular Accident: Yes (01-29-17 L SIDED) Hx Dizziness: Yes - HEENT Hx HEENT Problems: Yes (LASIK SURGERY BILATERAL EYE) - RENAL Hx Chronic Kidney Disease: No - ENDOCRINE/METABOLIC Hx Endocrine Disorders: Yes Hx Diabetes Mellitus Type 1: Yes Hx Diabetes Mellitus Type 2: Yes - HEMATOLOGICAL/ONCOLOGICAL Hx Blood Disorders: No (COUMADIN TOXICITY) - INTEGUMENTARY Hx Dermatological Problems: Yes Other/Comment: 01-29-17 BILATERAL LE LYMPEDEMA ,EDEMA +2 MORE TO LEFT WITH EXTENSIVE DARK BROWN SKIN DISCOLORATION.DUSKY,,DRY THICK SKIN. BILATERAL BUTTOCKS WITH EXTENSIVE DARKENED SKIN DERMATITIS,MASD IASD. RIGHT BALL OF FOOT HAS A LARGE OBLONG SHAPED CALLOUSED AREA MEASURE 2 X 3.2. - MUSCULOSKELETAL/RHEUMATOLOGICAL Hx Musculoskeletal Disorders: Yes Hx Falls: Yes Hx Unsteady Gait: Yes (CANE) - GASTROINTESTINAL Hx Gastrointestinal Disorders: Yes (HERNIORHAPPHY,H/O OF BLOODY STOOL) - GENITOURINARY/GYNECOLOGICAL Hx Genitourinary Disorders: Yes Hx Incontinence: Yes - PSYCHIATRIC Hx Psychophysiologic Disorder: No Hx Anxiety: No Hx Bipolar Disorder: No Hx Depression: No Hx Emotional Abuse: No Hx Hallucinations: No Hx Panic Symptoms: No Hx Post Traumatic Stress Disorder: No Hx Psychosis: No Hx Physical Abuse: No Hx Schizophrenia: No Hx Sexual Abuse: No Hx Substance Use: No - SURGICAL HISTORY Hx Surgeries: Yes (LASIK SURGERY TO BOTH EYES) Other/Comment: Hernia repair - ANESTHESIA Hx Anesthesia: Yes Hx Anesthesia Reactions: No Hx Malignant Hyperthermia: No Meds Allergies/Adverse Reactions: Allergies Allergy/AdvReac Type Severity Reaction Status Date / Time No Known Allergies Allergy Verified 01/29/17 12:52 Physical Exam - Constitutional Appears: Well - Head Exam Head Exam: ATRAUMATIC, NORMAL INSPECTION - Eye Exam Eye Exam: EOMI, Normal appearance Additional comments: facial left side - Respiratory Exam Respiratory Exam: Clear to Auscultation Bilateral - Cardiovascular Exam Cardiovascular Exam: Irregular Rhythm - Rectal Exam Rectal Exam: NORMAL INSPECTION - Neurological Exam Neurological exam: Alert, Oriented x3 - Psychiatric Exam Additional comments: left lower exts 0/5 and left upper arm and forearm can hardlly lif up, hand weak cannot extend Results - Vital Signs Recent Vital Signs: Last Vital Signs Temp 98.1 F 01/31/17 05:41 Pulse 89 01/31/17 05:41 Resp 20 01/31/17 05:41 BP 128/63 01/31/17 05:41 Pulse Ox 96 01/31/17 05:41 - Labs Result Diagrams: 01/31/17 06:44 01/31/17 06:44 Labs: Laboratory Results - last 24 hr 01/30/17 01/30/17 01/31/17 16:05 21:36 06:44 WBC 13.9 H D RBC 5.32 Hgb 17.3 Hct 48.8 MCV 91.7 MCH 32.5 MCHC 35.5 RDW 13.4 Plt Count 173 MPV 12.2 H Gran % 72.2 H Lymph % (Auto) 17.5 L Hubbard % (Auto) 9.3 H Eos % (Auto) 0.9 L Baso % (Auto) 0.1 Gran # 10.03 H Lymph # 2.4 Hubbard # 1.3 H Eos # 0.1 Baso # 0.02 Sodium Potassium Chloride Carbon Dioxide Anion Gap BUN Creatinine Est GFR ( Amer) Est GFR (Non-Af Amer) POC Glucose (mg/dL) 188 H 168 H Random Glucose Calcium Triglycerides Cholesterol LDL Cholesterol Direct HDL Cholesterol 01/31/17 01/31/17 06:44 07:22 WBC RBC Hgb Hct MCV MCH MCHC RDW Plt Count MPV Gran % Lymph % (Auto) Hubbard % (Auto) Eos % (Auto) Baso % (Auto) Gran # Lymph # Hubbard # Eos # Baso # Sodium 138 Potassium 3.3 L Chloride 99 Carbon Dioxide 25 Anion Gap 17 BUN 19 Creatinine 1.1 Est GFR ( Amer) > 60 Est GFR (Non-Af Amer) > 60 POC Glucose (mg/dL) 155 H Random Glucose 154 H Calcium 9.1 Triglycerides 92 Cholesterol 167 LDL Cholesterol Direct 128 HDL Cholesterol 32 Assessment & Plan (1) Acute CVA (cerebrovascular accident) Status: Acute (2) Hypertension Status: Acute (3) Atrial fibrillation Status: Acute (4) Diabetes 1.5, managed as type 2 Status: Acute (5) Cerebrovascular accident Status: Acute - Assessment and Plan (Free Text) Plan: admitt tele , neurology consult, cardiology consult, swallow eval, blood pressure monitor, patient had code stoke in er, was not [place],
[2017-01-31] MEDS: Cefepime 1gm in NS 100ml 1 GM/100 ML BAG IVPB SCH ×2 (14:12→20:59)
[2017-01-31] MEDS ORDERED: Digoxin 500 mcg/2ml (0.5 mg/2ml) Inj IVP SCH (16:00)
[2017-01-31 16:49] VITALS: PULSE 102
--- NOTE | 2017-01-31 17:19 | CON ---
DATE: 01/31/[address] for Dr. Mcmahon. REFERRING MD: Dr. Mcmahon. REASON FOR CONSULTATION: Evaluation of a patient unknown to me who presents with a right-sided CVA and uncontrolled hypertension. HISTORY OF PRESENT ILLNESS: The patient is a pleasant 81-year-old [place]ian male with a history of atrial fibrillation, on chronic anticoagulation; history of hypertension; history of NIDDM, on diet and medical therapy; history of dementia; history of hyperlipidemia. The patient presented to the emergency room on 01/29/2017 with alerted mental status and weakness on the left side. Initial CT scans were nondiagnostic but a followup MRI of the brain showed an acute right frontal lobe infarct with chronic small vessel ischemic changes bilaterally. The patient does have a past history of CVA according to family. The patient has no history of chronic kidney disease. Presently, the patient is receiving all his medications intravenously as he has failed the initial swallowing evaluation. He remains on IV fluid hydration. We are asked to evaluate the patient for fluctuating blood pressures. On admission, the patient had systolic blood pressures in the 170-180 range with diastolics approaching 110. Over the last 36 hours during the hospitalization, his blood pressure had been variable. This is likely secondary to him receiving intravenous medication with an initial lowering effect and then a rebound back up to elevated levels. PAST MEDICAL HISTORY: Significant for atrial fibrillation, on chronic anticoagulation; history of hypertension; history of NIDDM; history of hyperlipidemia; history of dementia; past history of a CVA. MEDICATIONS AT HOME: Include that of clonidine patch, valsartan, potassium, metoprolol, Glucophage, Lasix, Zetia, Aricept and Eliquis. ALLERGIES: THE PATIENT HAS NO KNOWN ALLERGIES TO MEDICATIONS. CURRENT MEDICATIONS IN HOSPITAL: Include that of p.r.n. hydralazine, Aricept, aspirin, Ativan, Catapres patch, Diovan is on hold, Eliquis is on hold, sliding scale insulin, K-Tabs, Lipitor, Lovenox, nystatin, IV hydration with potassium chloride, metoprolol which is currently on hold and Zetia which is on hold. SOCIAL HISTORY: No history of cigarette smoking, no history of alcohol use. FAMILY HISTORY: According to his son, father had significant hypertension. Mother's history is unknown. REVIEW OF SYSTEMS: Obtained from his son. GENERAL: The patient is awake and appetite has been stable. EARS, NOSE AND THROAT: No history of hearing or visual problems. PULMONARY: No history of shortness of breath, COPD, asthma, emphysema or pneumonia. CARDIAC: History of atrial fibrillation as noted above. The patient does not see a wink cutter operator. No history of known coronary artery disease. GASTROINTESTINAL: No nausea, no vomiting, no diarrhea, no constipation, no abdominal pain. GENITOURINARY: No history of chronic kidney disease. No history of urinary tract infections or prostate-related issues. ENDOCRINE: Positive for NIDDM. MUSCULOSKELETAL: No complaints. NEUROLOGIC: Past history of a small CVA according to his son. HEMATOLOGY AND ONCOLOGY: No history of anemia or cancer. PSYCHIATRIC: History is negative. PHYSICAL EXAMINATION: GENERAL: The patient is currently seen on telemetry. He is lying comfortable supine in bed. He is not speaking with me. VITAL SIGNS: Last blood pressure was 128/63, highest blood pressure late last night was 185/101, pulse is 110 and irregular. Respiratory rate is 20. Oxygen saturation is 96% on room air. HEENT: Exam shows him to be normocephalic, atraumatic. Conjunctivae are pink. Sclerae nonicteric. Pupils appear equal and reactive to light and accommodation. Extraocular muscles appear to be intact. NECK: Supple. No neck vein distention. No thyromegaly. No lymphadenopathy. No bruits. CHEST: Clear to auscultation and percussion. No rales, no rhonchi, no wheezing. CARDIOVASCULAR: Shows S1 and S2 which are irregular. No S3, no S4. No rub. ABDOMEN: Soft. Bowel sounds normal. No rebound, no guarding. No masses. Bowel sounds are normal. BACK: No CVAT. No spinal tenderness. EXTREMITIES: Show no cyanosis, clubbing or edema. Distal lower extremity pulses are 1 to 2+ bilateral. NEUROLOGIC: Shows him to be alert but non-communicative. He has slight facial asymmetry with a left facial droop on the left side. The patient is not moving his left upper extremity and only has minimal movement of his left lower extremity. 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 LABORATORY DATA AND IMAGING: Admitting chest x-ray showed chronic interstitial changes. No acute pulmonary disease. Admitting EKG showed atrial fibrillation, rate controlled. Admitting head CT was nondiagnostic. Followup brain MRI showed a right frontal lobe infarct with chronic small vessel ischemic changes bilaterally. Labs CBC white blood cell count 10.1 on admission, 13.9 today. Platelet count is 173,000, hemoglobin is stable at 17.3. Coags are normal. Chemistries: Sodium of 138, potassium was 5.0, today it is 3.3, potassium had been supplemented by Dr. Mcmahon. Chloride 99 with a CO2 of 25. BUN 19 with a creatinine of 1.1, glucose is 154, calcium 9.1. Liver enzymes are normal. Albumin is 3.9. Total cholesterol 167 with an LDL of 128. Urine showed trace protein with glucose in his urine. No white cells, no red cells. Toxicology screen is negative. Alcohol level is less than 10. ASSESSMENT: 1. Hypertension uncontrolled at the time of admission, at the time that he presented with left-sided weakness and an acute right frontal lobe infarct. For the first 24 hours, the patient's blood pressure remained elevated. Unfortunately at this point in time, the patient is receiving blood pressure medication intravenously as he had failed his initial swallowing evaluation. To obtain better blood pressure control at this point in time, he would do much better if he received medication via a feeding tube perhaps a Dobhoff tube until we are certain whether or not the patient can swallow. Otherwise, we will have ups and downs in his blood pressure control. The patient may remain on a clonidine patch. I would like to restart the patient back on losartan and perhaps on a calcium channel abelino. This morning's blood pressure is well controlled. 2. History of noninsulin-dependent diabetes mellitus. The patient will continue on sliding scale insulin. Glucose control is acceptable. 3. History of atrial fibrillation. The patient needs to be restarted back on beta-abelino therapy as his heart rate is accelerating into low 100 range. Perhaps if the Dobhoff tube is placed the patient may be restarted back on oral metoprolol. Otherwise, the patient will likely need IV beta-abelino therapy. 4. History of hyperlipidemia. Mild elevation of LDL cholesterol. When patient resumes oral medications, he should restart back on statin therapy and Zetia. 5. History of mild dementia. The patient had been on Aricept in the outpatient setting. This can be restarted once we are certain that there is a route to administer this medication. 6. Mild hypokalemia. Agree with potassium supplements. The patient had been receiving potassium free IV fluid. In the outpatient setting, he had been receiving Lasix together with potassium supplements. PLAN: 1. Discussed with staff on telemetry in detail. The patient will likely have a second swallowing evaluation. If he fails this, I suggest placement of a Dobhoff tube so that he may receive his medication orally through the Dobhoff tube. This will achieve much smoother blood pressure control than IV medications which require constant dosing and have ups and downs with blood pressure control. 2. Agree with potassium supplements in light of the fact that he was receiving potassium-free fluid. 3. Neuro followup appreciated. 4. Continue medications to lower cholesterol levels. 5. Continue aspirin therapy. The patient had been receiving Lovenox in place of Eliquis. 6. Attempt to restart the patient back on beta-abelino therapy as soon as possible in light of his elevated heart rate give his atrial fibrillation. Thank you for letting me partake and share in the care of our mutual patient. Nelson Wall MD
[2017-01-31] MEDS: Thiamine 100 mg/ml Inj IM SCH (17:25)
--- NOTE | 2017-01-31 18:17 | CP.PCM.PN ---
Subjective - Date & Time of Evaluation Date of Evaluation: 01/31/17 Time of Evaluation: 16:00 - Subjective Subjective: sleepy, but arousable he respond to calling his name , recognise me knows where he is move rt side no respiratory distress, no chest pain seen by cardio , nephrology today, afebrile 97.5. sat 98% on room air Objective - Vital Signs/Intake and Output Vital Signs (last 24 hours): Temp Pulse Resp BP Pulse Ox 98.5 F 110 H 18 142/80 90 L 01/31/17 17:24 01/31/17 18:00 01/31/17 17:24 01/31/17 17:24 01/31/17 16:56 Intake and Output: 01/31/17 01/31/17 06:59 18:59 Intake Total 900 0 Output Total 0 Balance 900 0 - Medications Medications: Current Medications Apixaban (Eliquis) 5 mg PO BID PAGE PRN Reason: Protocol Aspirin (Aspirin Supp) 300 mg RC DAILY [facility] Last Admin: 01/31/17 09:31 Dose: 300 mg Atorvastatin Calcium (Lipitor) 10 mg PO DIN [facility] Last Admin: 01/31/17 17:04 Dose: Not Given Clonidine HCl (Catapres Tts1 0.1 Mg/24 Hr) 1 patch TD Sa@1800 [facility] Last Admin: 01/29/17 17:50 Dose: 1 patch Digoxin (Lanoxin) 0.25 mg IVP 1400 [facility] Last Admin: 01/31/17 16:47 Dose: 0.25 mg Donepezil HCl (Aricept) 10 mg PO HS [facility] Last Admin: 01/30/17 22:25 Dose: Not Given Doxycycline Hyclate (Doryx) 100 mg PO Q12 PAGE PRN Reason: Protocol Stop: 02/09/17 22:01 Ezetimibe (Zetia) 10 mg PO DAILY [facility] Last Admin: 01/31/17 09:40 Dose: Not Given Enoxaparin Sodium (Lovenox) 80 mg SC Q12H PAGE PRN Reason: Protocol Last Admin: 01/31/17 09:31 Dose: 80 mg Hydralazine HCl (Apresoline) 10 mg IVP Q6 PRN PRN Reason: Systolic Blood Pressure Last Admin: 01/30/17 23:15 Dose: 10 mg Potassium Chloride 20 meq/ (Sodium Chloride) 1,010 mls @ 75 mls/hr IV .[id number] [facility] Last Admin: 01/31/17 09:32 Dose: 75 mls/hr Cefepime HCl (Maxipime 1gm) 1 gm in 100 mls @ 100 mls/hr IVPB Q8 PAGE PRN Reason: Protocol Stop: 02/08/17 14:01 Last Admin: 01/31/17 14:12 Dose: 100 mls/hr Insulin Human Regular (Humulin R Low) 0 units SC ACHS PAGE PRN Reason: Protocol Last Admin: 01/31/17 16:43 Dose: Not Given Metoprolol Succinate (Toprol Xl) 200 mg PO BRK [facility] Last Admin: 01/31/17 08:19 Dose: Not Given Nystatin (Nystop Topical Powder) 0 gm TOP BID [facility] Last Admin: 01/31/17 17:05 Dose: 1 applic Potassium Chloride (K-Dur 20 Meq Er Tab) 20 meq PO BRK [facility] Last Admin: 01/31/17 08:19 Dose: Not Given Thiamine HCl (Vitamin B1 Inj) 100 mg IM DAILY [facility] Stop: 02/04/17 11:00 Last Admin: 01/31/17 17:25 Dose: 100 mg Valsartan (Diovan) 320 mg PO DAILY [facility] Last Admin: 01/31/17 09:40 Dose: Not Given Ziprasidone (Geodon Inj) 10 mg IM Q6H PRN PRN Reason: Agitation - Labs Labs: 01/31/17 06:44 01/31/17 06:44 PT 10.9 Seconds (9.9-11.8) 01/29/17 10:45 INR 1.01 (0.93-1.08) 01/29/17 10:45 APTT 27.3 Seconds (23.7-30.8) 01/29/17 10:45 - Constitutional Appears: Well - Head Exam Head Exam: ATRAUMATIC, NORMAL INSPECTION, NORMOCEPHALIC - Eye Exam Eye Exam: EOMI, Normal appearance, PERRL - ENT Exam ENT Exam: Mucous Membranes Moist, Normal Exam. absent: Mucous Membranes Dry, Normal External Ear Exam, Normal Oropharynx, TM's Normal Bilaterally - Neck Exam Neck Exam: Full ROM, Normal Inspection. absent: Lymphadenopathy - Respiratory Exam Respiratory Exam: Clear to Ausculation Bilateral, NORMAL BREATHING PATTERN - Cardiovascular Exam Cardiovascular Exam: Irregular Rhythm, REGULAR RHYTHM, +S1, +S2. absent: Murmur - GI/Abdominal Exam GI & Abdominal Exam: Soft, Normal Bowel Sounds. absent: Tenderness - Extremities Exam Extremities Exam: Full ROM, Normal Inspection - Back Exam Back Exam: NORMAL INSPECTION - Neurological Exam Neuro motor strength exam: Left Upper Extremity: 0, Left Lower Extremity: 0 Assessment and Plan (1) Acute CVA (cerebrovascular accident) Status: Acute (2) Hypertension Status: Acute (3) Atrial fibrillation Status: Acute (4) Diabetes 1.5, managed as type 2 Status: Acute (5) Cerebrovascular accident Status: Acute - Assessment and Plan (Free Text) Assessment: 81 acute cva, npo, on aspirin rectal suppository,,leucocytosis, id consult, cxray negative, pottasium replaced,bp stable. continue neurocheck, discussed dr gayle, discussed dr rupali vazquez
--- NOTE | 2017-01-31 18:28 | CON ---
DATE: 01/31/2017 CARDIOLOGY PHYSICIAN: Dr. Huber Valera. REASON FOR CONSULTATION: CVA, left-sided weakness, chronic atrial fibrillation, noncompliance with the medications. BRIEF CLINICAL HISTORY: A 81-year-old male with past medical history significant for chronic atrial fibrillation on Eliquis, very noncompliant with medication, before the patient was on Coumadin and it was hard to maintain the level with Coumadin. History of hypertension, hyperlipidemia, admitted with compliant of weakness on the left side. Information obtained from the son, Zan, who is at the bedside. The patient is obtunded, unable to give any history. The patient's son states that he felt that the weakness of the left side has brought here. PAST MEDICAL HISTORY: Significant for atrial fibrillation, hypertension, hyperlipidemia, history of his stroke on left side with complete resolution as person. PAST SURGICAL HISTORY: Significant for hernia repair 15 years ago in [place]. SOCIAL HISTORY: No history of smoking. No history of alcohol abuse. FAMILY HISTORY: Noncontributory. 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 CURRENT MEDICATIONS: The patient is supposed to take Eliquis, but son says he is very noncompliance. Eliquis 5 mg supposed to be twice, but he used to take once a day. He is taking Aricept. Zetia, Lasix, metformin, metoprolol succinate, valsartan, and clonidine 0.1 mg three times a day. REVIEW OF SYSTEMS: As per HPI. PHYSICAL EXAMINATION: VITAL SIGNS: As follows, temperature afebrile, heart rate 89, blood pressure 120/63. HEENT: PERRLA. Extraocular muscles intact. NECK: Supple. No carotid bruits or thyromegaly. CHEST: Clear to auscultation. HEART: S1 and S2 regular. ABDOMEN: Soft. EXTREMITIES: Clubbing and cyanosis negative. LABORATORY DATA: Blood workup as follows: WBC 13.9, hemoglobin 17, hematocrit 48.8, platelet count 173. Chemistry shows sodium 130, potassium 3.0, chloride 99, carbon dioxide of 25, anion gap of 17, BUN 19, creatinine 1.1. Triglycerides 92, cholesterol 161, LDL 120, HDL 32. EKG shows atrial fibrillation rate of 74. IMPRESSION: A 81-year-old male with past medical history significant for chronic atrial fibrillation, noncompliance with medication, hypertension, hyperlipidemia, diabetes, admitted with left-sided weakness probably secondary to noncompliance with medication. Initial CAT scan on admission, nonspecific white matter changes noted, but later on a CT angio was done that showed critical stenosis of A3 segment of the right anterior cerebral artery was noted and stenosis of the right vertebral artery was noted where as bilateral carotid 50% stenosis noted. MRI of the brain, the left internal carotid artery normal noted. Left anterior cerebral artery nondiagnostic evaluation due to artifact. The basilar artery and distal left vertebral artery patent study, otherwise nondiagnostic MRA was recommended and MRA finding as above, who admitted with a new stroke. The patient has a swallowing evaluation, he is n.p.o., so we will start Lovenox. We will get echo to assess left ventricular function. We will put hydralazine p.r.n. and for now change all p.o. medication to aspirin suppository rectal as well as start some Lovenox until the swallowing evaluation is done. Continue clonidine patch and put hydralazine p.r.n. IV for systolic more than 70. We will follow with you. Information obtained from the son and lengthy discussion done with the son, name Zan. Thank you for providing the opportunity in taking care of Mila Bangura. Huber Valera MD
--- NOTE | 2017-01-31 19:47 | CON ---
DATE: 01/31/2017 PSYCHIATRY CONSULTATION HISTORY OF PRESENT ILLNESS: The patient is a 81-year-old male. I reviewed the chart. I spoke to patient's son at bedside, attempted to interview the patient, although he was mostly drowsy. The patient's was found by family to have sudden weakness of his left upper extremity with facial droop, they called the ambulance, brought to the hospital ER and found to have a right anterior cerebral artery CVA. He has had CAT scan, MRI and CT angiography. According to family prior to the incident, he had no neurological impairment although he has been depressed for the past 3 months. According to the family, he has had no problems with memory or orientation. PAST MEDICAL HISTORY: He has a history of insulin dependent diabetes mellitus. He has a history of atrial fibrillation, on anticoagulation. He has dyslipidemia, hypertension and history of hernia repair. According to medical records, he does have a history of cognitive impairment for which he is receiving Aricept. REVIEW OF SYSTEMS: Unable to ascertain, but family says prior to this incident he has had no physical complaints. PERSONAL HISTORY: He is , he lives with his . He has a son. He is retired. 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 No history of alcohol or substance abuse. CURRENT LABORATORY DATA: As follows: On admission, his electrolytes were all within normal range. BUN 26, creatinine 1.2, estimated GFR 58. His glucose is 149. His hemoglobin A1c is 7.6. Rest of metabolic profile is all within normal range. The patient's CBC, today his white count is 13,900; hemoglobin 17.3, platelet count 173,000. The patient's urine had 30 mg/dL urinary protein. He had 100 mg/dL glucose. He had no urinary leucocyte esterase. The patient's blood gas, his venous pO2 was 27, venous pH was 7.32, venous pCO2 was 58. The patient's urine for toxicology and alcohol was all negative. MEDICATIONS: The patient's current list of medications, he had last night. He had 0.5 mg of Ativan IV at 12:15 early this morning for agitation. The patient's other medications include Diovan; Zetia; Toprol-XL; K-Dur; Aricept 10 mg at bedtime, he did not get that last night; Apresoline p.r.n., had a dose last night IV; Lipitor was not given last night; Eliquis not received; Lovenox 80 mg subQ q. 12 hours, which he has received this morning. He has aspirin suppository 300 mg daily rectally, Maxipime IV, doxycycline p.o. PHYSICAL EXAMINATION VITAL SIGNS: Blood pressure is 109/80, pulse 90, temperature 99.5 orally, respirations 19 per minute and O2 saturation 96% on room air. NEUROLOGIC: He has a left facial droop. He has left hemiparesis of his upper and lower extremities. PSYCHIATRIC: His mental status, he is sleeping, arousable, but unable to carry on any kind of conversation or answer questions due to sedation. IMPRESSION: Acute right anterior cerebral artery stroke, infarct. By CT angiography, he has severe stenosis of the A3 segment of right anterior cerebral artery with poor flow distal to this region. He has an A1 segment of right anterior cerebral artery. He has a stenosis in distal right cerebral artery. He has atherosclerosis of the distal internal carotid arteries bilaterally with less than 50% stenosis. He has some cerebral atrophy. The patient by CT scan of the head has diffuse atrophy with prominence of the ventricles and sulci and dense intracranial atherosclerotic calcifications and scattered periventricular and subcortical white matter hypodensities, consistent with chronic microvascular ischemic disease. The patient has a history of hypertension, has history of insulin dependent diabetes mellitus. He has a previous history by medical record of cognitive impairment. He has a history of hyperlipidemia and sleep apnea, with CPAP use. PLAN: I will leave an order for only p.r.n. Geodon 10 mg IM for agitation, would not use benzodiazepines in this case as it is too oversedating and more prone to confusion. The patient will be needed to be started on antidepressants because there are incidents of depression following this type of CVA. I will reevaluate the patient tomorrow for this and monitor mental status. David Sumner MD
--- NOTE | 2017-01-31 20:26 | CON ---
DATE: 01/31/2017 LOCATION: The patient seen in the room 268, bed 2. CHIEF COMPLAINT: Elevated WBC count x1 day duration. HISTORY OF PRESENT ILLNESS: This is a 81-year-old [place] male with a history of cerebrovascular accident in the past, high cholesterol, diabetes mellitus, hypertension, and coronary artery disease, who was admitted with a diagnosis of cerebrovascular accident. At the time of admission, the patient had a normal white count and the patient's white count went up to 13,900 today and infection disease consultation requested. The patient is a poor historian. There has been low-grade fevers. There has been no chest pain. He has mild shortness of breath. No abdominal pain, diarrhea, or constipation. No blood per rectum, no melena. The patient's son is at the bedside who helps with the history. PAST MEDICAL HISTORY: Significant for hypertension, diabetes, cerebrovascular accident, hyperlipidemia, and coronary artery disease. PAST SURGICAL HISTORY: Significant for hernia repair and bilateral laser surgery for the eyes. ALLERGIES: PATIENT HAS NO KNOWN ALLERGIES. MEDICATIONS AT HOME: Include the patient to be on Eliquis, Zetia, Aricept, Lasix, metformin, metoprolol, valsartan and clonidine. PHYSICAL EXAMINATION: VITAL SIGNS: The patient's temperature is 97, heart rate of 150, respiratory rate goes up to 22 yesterday, and blood pressure is 130/80. HEENT: Unremarkable. NECK: Supple. CARDIOPULMONARY: Normal S1 and S2. LUNGS: Decreased breath sounds. ABDOMEN: Soft. LABORATORY DATA: Reveals a white count of 13,900, hemoglobin of 17, and platelets of 173. The patient with 72% granulocytosis. Coagulation is noted. Chemistries reveals a BUN of 19, creatinine of 1.1. Urinalysis is noted, 0-2 WBC's. Screening drug screen is noted. Blood cultures are no growth. Chest x-ray has bilateral hilar prominence and Dr. Lang's consultation is reviewed. ASSESSMENT AND PLAN: This 81-year-old male with cerebrovascular accident, hypertension, hyperlipidemia, diabetes, coronary artery disease, admitted with cerebrovascular accident, now with tachycardia, decreased breath sounds and leukocytosis. 1. Sepsis with healthcare associated pneumonia status post cerebrovascular accident. We will treat the patient with Maxipime and doxycycline pending JIMENEZ culture, blood, urine, and sputum culture results, procalcitonin and we will review the chest x-ray. Jorge Rashid MD
[2017-01-31] MEDS: Sodium Chloride 0.9% 1,000 ML IV SCH (22:34)
--- NOTE | 2017-02-01 02:21 | PN ---
DATE: 01/31/2017 PULMONARY PROGRESS NOTE REFERRING PHYSICIAN: Dr. Mcmahon. SUBJECTIVE: Subjectively, he is lying in the bed at 45 degrees. He has facial droop with severe oropharyngeal dysphagia with dense stroke with left upper and lower extremity paralysis. No hemoptysis, no hematemesis, no hematuria. No diarrhea reported. OBJECTIVE: GENERAL: In no acute distress. VITAL SIGNS: Temperature is 98, heart rate is 108, respiratory rate is 18, blood pressure 142/80, pulse ox 97% on room air. HEENT: Moist mucus membrane. Crowded airway. Mallampati score is 4. NECK: Supple. No JVD. LUNGS: Fair airflow with few rhonchi. HEART: S1 and S2. ABDOMEN: Soft, nontender. No organomegaly. EXTREMITIES: No edema. NEUROLOGIC: Awake,nonverbal today with left upper and lower extremity paralysis. MEDICATIONS: He is on Aricept 10 mg daily, aspirin 300 mg rectally, clonidine patch 0.1 mg q. 3 days, Diovan 320 mg daily, doxycycline 100 mg twice a day, Eliquis 5 mg twice a day, Geodon 10 mg IM q. 6 hours prn., insulin coverage, potassium 20 mEq daily, digoxin 0.25 mg daily, Lipitor 10 mg daily, Lovenox 80 mg subcutaneous q. 12 hours, cefepime 1 g IV q. 8 hours, IV fluid with potassium 75 mL per hour, Toprol XL 200 mg daily, vitamin B 100 mg daily, Zetia 10 mg daily. LABORATORY DATA: Shows hemoglobin 17.3, hematocrit 48.8, WBC 13.9, platelet is 173. Blood sugar 111, hemoglobin A1c 7.6. Sodium 138, potassium 3.3, chloride 99, bicarbonate 25, BUN 19, creatinine 1.1, glucose 154, calcium is 9.1, cholesterol is 167, procalcitonin 0.20. Microbiology, blood cultures have been negative. Chest x-ay done today shows poor inspiratory phase, cardiomegaly, vascular crowding, bilateral hilar prominence. IMPRESSION AND PLAN: Acute ischemic stroke, hypertension, diabetes, atrial fibrillation, may have a sleep apnea syndrome, oropharyngeal dysphagia. Case discussed with Dr. Mcmahon in detail. Patient on anticoagulants also, on antiplatelet, may need G-tube placement for nutrition. Continue BiPAP while sleeping. May have a hilar infiltrate could be a component of aspiration. His echocardiogram is still pending. CT angio suggestive of stenosis at the A3 segment of the right anterior cerebral artery. 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 We will also suggest changing fluid to normal saline with supplement potassium. FOLLOWUP PLAN: 1. Aspiration precaution. 2. Keep the head elevated at 45 degrees. 3. Start rehab. 4. Neurology followup for further recommendation. Thank you and we will follow up with you. Huber Lang MD
[2017-02-01] MEDS: Cefepime 1gm in NS 100ml 1 GM/100 ML BAG IVPB SCH ×3 (05:05→22:32)
[2017-02-01 07:09] LABS: BASO # 0.02 K/mm3 (0.0-2.0); BASO % 0.2 % (0.0-3.0); EOS # 0.1 (0.0-0.7); EOS % 0.8 % (1.5-5.0); GRAN # 8.29 (1.4-6.5); GRAN % 66.7 % (50.0-68.0); HEMATOCRIT 47.1 % (42.0-52.0); LYMPH # 2.6 (1.2-3.4); MEAN CELL VOLUME 92.2 fl (80.0-105.0); MEAN CORPUSCULAR HEMOGLOBIN 32.1 pg (25.0-35.0); MEAN CORPUSCULAR HGB CONC 34.8 g/dl (31.0-37.0); MEAN PLATELET VOLUME 12.7 fl (7.0-11.0); MONO # 1.4 (0.1-0.6); MONO % 11.3 % (1.0-6.0); RED CELL DISTRIBUTION WIDTH 13.4 % (11.5-14.5); WHITE BLOOD COUNT 12.4 10^3/ul (4.5-11.0)
[2017-02-01] MEDS ORDERED: Metoprolol 1 mg/ml Inj IVP SCH (07:15)
[2017-02-01 07:31] LABS: ALKALINE PHOSPHATASE 79 U/L (38-126); ALT/SGPT 19 U/L (7-56); AST/SGOT 26 U/L (17-59); BILIRUBIN,TOTAL 1.5 mg/dL (0.2-1.3); BLOOD UREA NITROGEN 27 mg/dL (7-21); CALCIUM 8.9 mg/dL (8.4-10.5); CARBON DIOXIDE 21 mmol/L (21-33); CHLORIDE 103 mmol/L (98-107); GFR AFRICAN-AMERICAN 59; GLUCOSE,RANDOM 129 mg/dL (70-110); MAGNESIUM 1.7 mg/dL (1.7-2.2); POTASSIUM 3.4 mmol/L (3.6-5.0); SODIUM 139 mmol/L (132-148); TOTAL PROTEIN 6.7 g/dL (5.8-8.3)
--- NOTE | 2017-02-01 07:43 | CP.PCM.PCO ---
Addendum Addendum: 02/01/17 07:37 Patricio Lockhart D.O. PGY-2, D.O. On Duty (D.O.O.D.) Received page from RN to evaluate the patient. Per nurse the patient has had continually elevated HR in the 120s all morning. Patient has been sleeping comfortably, afebrile, with no complaints whatsoever. Patient was seen and examined at bedside. Patient is sleeping comfortably, does not appear in pain or distress. Tele monior does show sinus tachycardia in the 120s. Review of the medication list shows that the patient is supposed to be getting Metoporlol 200mg PO BRK but he has not been receiving it due to being NPO, but patient has been receiving a PRN hydralazine order and these two things in conjunction are probably why, after review of vital signs since admission patient tends to have these episodes of tachycardia every morning around 5am to 9am. Reviewed lab, today's CMP pending but did have hypokalemia yesterda. Placed hold order on the PO metoprolol 200mg and switched to scheduled metoprolol 5mg IVP q6h with hold parameters for SBP <100 or HR <65. I discussed the findings with the human resources trainer refrigeration unit repairer Dr. Soto horton as well.
--- NOTE | 2017-02-01 09:21 | CT ---
PROCEDURE: CT HEAD WITHOUT CONTRAST. HISTORY: CVA COMPARISON: 01/30/2017 TECHNIQUE: Axial computed tomography images were obtained through the head/brain without intravenous contrast. Radiation dose: Total exam DLP = 677.4 mGy-cm. This CT exam was performed using one or more of the following dose reduction techniques: Automated exposure control, adjustment of the mA and/or kV according to patient size, and/or use of iterative reconstruction technique. FINDINGS: HEMORRHAGE: Very small amount of low attenuation seen within the medial right frontal lobe, possibly acute hemorrhage. This was not appreciated on the gradient echo sequence of the MRI brain performed 2 days previous. BRAIN: No intracranial mass. Mild diffuse age-appropriate cerebral atrophy. Moderate periventricular white matter lucency consistent with age related microvascular ischemic change. Acute to subacute right frontal infarct with increasing region of low attenuation in the medial right frontal lobe extending into the right anterior elena radiata. This extends all throughout the anterior cerebral artery territory. VENTRICLES: Unremarkable. No hydrocephalus. No midline shift. Basilar cisterns preserved. CALVARIUM: Unremarkable. PARANASAL SINUSES: Bilateral chronic maxillary sinusitis. MASTOID AIR CELLS: Unremarkable as visualized. No inflammatory changes. OTHER FINDINGS: None. IMPRESSION: Acute/subacute right medial frontal infarct with small foci of increased attenuation within the right frontal lobe suggestive of small amount of acute hemorrhage. This hemorrhage was not appreciated on gradient echo sequences performed as part of MRI examination of 01/30/2017. This infarct has progressed in appearance when compared to CT of 01/30/2017.
[2017-02-01] MEDS: Potassium Chloride 20 mEq ER Tab PO SCH (10:08)
[2017-02-01] MEDS: Insulin Reg-LOW-Coverage SC SCH ×4 (10:08→22:03)
[2017-02-01] MEDS: diltiaZEM IVPB 100mg in NS 100 ML IV PRN (10:31)
[2017-02-01] MEDS: Thiamine 100 mg/ml Inj IM SCH (10:37)
[2017-02-01] MEDS: Nystatin 100,000 Units/gm Topical Pow(15 gm) TOP SCH ×2 (10:39→19:56)
--- NOTE | 2017-02-01 11:28 | US ---
PROCEDURE: Bilateral carotid artery duplex ultrasound HISTORY: Carotid stenosis PHYSICIAN(S): Rayo Jeff MD. TECHNIQUE: Duplex sonography and color-flow Doppler were used to evaluate the carotid bifurcations and limited segments of the vertebral arteries bilaterally. FINDINGS: There is mild smooth heterogeneous plaque noted at the carotid bifurcations bilaterally. The peak systolic velocity in the proximal right internal carotid artery is 80 cm/sec. This corresponds to a 20 to 39% proximal right ICA stenosis. Normal systolic velocities are noted in the proximal right external carotid artery. There is antegrade flow in the right vertebral artery. The proximal left ICA is tortuous. The peak systolic velocity in the proximal left internal carotid artery is 93 cm/sec. This corresponds to a 20 to 39% proximal left ICA stenosis. Normal systolic velocities are noted in the proximal left external carotid artery. There is antegrade flow in the left vertebral artery. IMPRESSION: 1. Bilateral 20-39% proximal ICA stenoses. 2. Antegrade flow in both vertebral arteries.
--- NOTE | 2017-02-01 12:22 | CP.PCM.CON ---
<Nery Us - Last Filed: 02/01/17 12:21> History of Present Illness - History of Present Illness History of Present Illness: Seen and examined at the bedside. Chart was reviewed. Request for consult is for CVA/PEG evaluation. HPI: This is a 81-year-old male with a past medical history of atrial fibrillation, on anticoagulation, hypertension, and IDDM presented to the emergency room on with complaints of weakness on left side. The patient was found to have acute right frontal lobe infarct with chronic small vessel ischemia changes bilaterally on MRI. The patient does have a history of CVA in the past. Patient has failed his initial swallowing evaluation, yesterday speech therapist attempted 3 times to do swallowing evaluation and unsuccessful. Spoke to the patient's and son at the bedside denies that the patient has had endoscopy in the past possibly or colonoscopy. The patient went for a head CT this morning and that showed an acute/subacute right medial frontal infarct, this hemorrhage was not appreciated on the previous MRI done on . The infarct has progressed in appearance when compared to this CAT scan done on January 30, 2017. The patient is currently nothing by mouth and on on IV fluids for hydration. No reports of any overt GI bleed. The patient's son reports that the patient previous to this stroke was eating without difficulty, had good appetite. The patient is awake, but lethargic and nonverbal. Past medical history: CVA in the past, atrial fibrillation on anticoagulation, hypertension, and IDDM, hyperlipidemia, dementia Surgical history: As per no history of cardiac interventions, history of hernia repair Allergies no known drug allergies Family history: Noncontributory Social history: No history of smoking, EtOH or substance abuse Medications: Reviewed as per MAR significant for melena ROS: Systems reviewed with positive finding see HPI Past Patient History - Infectious Disease Hx of Infectious Diseases: None - Past Social History Smoking Status: Never Smoked - CARDIAC Hx Cardiac Disorders: Yes Hx Hypertension: Yes - PULMONARY Hx Respiratory Disorders: No - NEUROLOGICAL Hx Neurological Disorder: Yes HX Cerebrovascular Accident: Yes (9-2-17 L SIDED) Hx Dizziness: Yes - HEENT Hx HEENT Problems: Yes (LASIK SURGERY BILATERAL EYE) - RENAL Hx Chronic Kidney Disease: No - ENDOCRINE/METABOLIC Hx Endocrine Disorders: Yes Hx Diabetes Mellitus Type 1: Yes Hx Diabetes Mellitus Type 2: Yes - HEMATOLOGICAL/ONCOLOGICAL Hx Blood Disorders: No (COUMADIN TOXICITY) - INTEGUMENTARY Hx Dermatological Problems: Yes Other/Comment: 01-29-17 BILATERAL LE LYMPEDEMA ,EDEMA +2 MORE TO LEFT WITH EXTENSIVE DARK BROWN SKIN DISCOLORATION.DUSKY,,DRY THICK SKIN. BILATERAL BUTTOCKS WITH EXTENSIVE DARKENED SKIN DERMATITIS,MASD IASD. RIGHT BALL OF FOOT HAS A LARGE OBLONG SHAPED CALLOUSED AREA MEASURE 2 X 3.2. - MUSCULOSKELETAL/RHEUMATOLOGICAL Hx Musculoskeletal Disorders: Yes Hx Falls: Yes Hx Unsteady Gait: Yes (CANE) - GASTROINTESTINAL Hx Gastrointestinal Disorders: Yes (HERNIORHAPPHY,H/O OF BLOODY STOOL) - GENITOURINARY/GYNECOLOGICAL Hx Genitourinary Disorders: Yes Hx Incontinence: Yes - PSYCHIATRIC Hx Psychophysiologic Disorder: No Hx Anxiety: No Hx Bipolar Disorder: No Hx Depression: No Hx Emotional Abuse: No Hx Hallucinations: No Hx Panic Symptoms: No Hx Post Traumatic Stress Disorder: No Hx Psychosis: No Hx Physical Abuse: No Hx Schizophrenia: No Hx Sexual Abuse: No Hx Substance Use: No - SURGICAL HISTORY Hx Surgeries: Yes (LASIK SURGERY TO BOTH EYES) Other/Comment: Hernia repair - ANESTHESIA Hx Anesthesia: Yes Hx Anesthesia Reactions: No Hx Malignant Hyperthermia: No Meds Allergies/Adverse Reactions: Allergies Allergy/AdvReac Type Severity Reaction Status Date / Time No Known Allergies Allergy Verified 01/29/17 12:52 - Medications Medications: Current Medications Apixaban (Eliquis) 5 mg PO BID [facility] PRN Reason: Protocol Atorvastatin Calcium (Lipitor) 10 mg PO DIN [facility] Last Admin: 01/31/17 17:04 Dose: Not Given Clonidine HCl (Catapres Tts1 0.1 Mg/24 Hr) 1 patch TD Sa@1800 [facility] Last Admin: 01/29/17 17:50 Dose: 1 patch Donepezil HCl (Aricept) 10 mg PO HS [facility] Last Admin: 01/31/17 21:00 Dose: Not Given Doxycycline Hyclate (Doryx) 100 mg PO Q12 PAGE PRN Reason: Protocol Stop: 02/09/17 22:01 Last Admin: 02/01/17 10:07 Dose: Not Given Ezetimibe (Zetia) 10 mg PO DAILY [facility] Last Admin: 02/01/17 10:11 Dose: Not Given Hydralazine HCl (Apresoline) 10 mg IVP Q6 PRN PRN Reason: Systolic Blood Pressure Last Admin: 01/30/17 23:15 Dose: 10 mg Cefepime HCl (Maxipime 1gm) 1 gm in 100 mls @ 100 mls/hr IVPB Q8 PAGE PRN Reason: Protocol Stop: 02/08/17 14:01 Last Admin: 02/01/17 05:05 Dose: 100 mls/hr Sodium Chloride (Sodium Chloride 0.9%) 1,000 mls @ 70 mls/hr IV .[id number] [facility] Last Admin: 01/31/17 22:34 Dose: 70 mls/hr diltiaZEM IVPB 100mg in NS (Cardizem 100mg In Ns) 100 mls @ 5 mls/hr IV .Q20H PRN; Protocol; 5 MG/HR PRN Reason: TITRATE PER MD ORDER Last Admin: 02/01/17 10:31 Dose: 5 mg/hr, 5 mls/hr Insulin Human Regular (Humulin R Low) 0 units SC ACHS [facility] PRN Reason: Protocol Last Admin: 02/01/17 10:08 Dose: Not Given Metoprolol Succinate (Toprol Xl) 200 mg PO BRK [facility] Last Admin: 01/31/17 08:19 Dose: Not Given Metoprolol Tartrate (Lopressor) 5 mg IVP Q6H [facility] Last Admin: 02/01/17 07:20 Dose: 5 mg Nystatin (Nystop Topical Powder) 0 gm TOP BID [facility] Last Admin: 02/01/17 10:39 Dose: 1 applic Potassium Chloride (K-Dur 20 Meq Er Tab) 20 meq PO BRK [facility] Last Admin: 02/01/17 10:08 Dose: Not Given Thiamine HCl (Vitamin B1 Inj) 100 mg IM DAILY [facility] Stop: 02/04/17 11:00 Last Admin: 02/01/17 10:37 Dose: 100 mg Valsartan (Diovan) 320 mg PO DAILY [facility] Last Admin: 01/31/17 09:40 Dose: Not Given Ziprasidone (Geodon Inj) 10 mg IM Q6H PRN PRN Reason: Agitation Physical Exam - Constitutional Appears: No Acute Distress - Head Exam Head Exam: NORMOCEPHALIC - Eye Exam Eye Exam: Normal appearance. absent: Scleral icterus - ENT Exam ENT Exam: Mucous Membranes Moist - Neck Exam Neck exam: Positive for: Normal Inspection - Respiratory Exam Respiratory Exam: Decreased Breath Sounds, NORMAL BREATHING PATTERN. absent: Respiratory Distress - Cardiovascular Exam Cardiovascular Exam: +S1, +S2 - GI/Abdominal Exam GI & Abdominal Exam: Normal Bowel Sounds, Soft. absent: Guarding, Organomegaly , Rebound, Tenderness Additional comments: palpable ventral hernia - Extremities Exam Extremities exam: Positive for: pedal pulses present. Negative for: calf tenderness, pedal edema - Neurological Exam Neurological exam: Altered Additional comments: lethargic, opens eyes to voice, does not follow commands - Skin Skin Exam: Dry, Warm Results - Vital Signs Recent Vital Signs: Last Vital Signs Temp 97.0 F L 02/01/17 05:48 Pulse 110 H 02/01/17 10:49 Resp 20 02/01/17 05:48 BP 163/99 H 02/01/17 10:49 Pulse Ox 98 02/01/17 05:48 - Labs Result Diagrams: 02/01/17 05:15 02/01/17 05:15 Labs: Laboratory Results - last 24 hr 01/31/17 01/31/17 01/31/17 10:30 16:06 22:03 WBC RBC Hgb Hct MCV MCH MCHC RDW Plt Count MPV Gran % Lymph % (Auto) [place] % (Auto) Eos % (Auto) Baso % (Auto) Gran # Lymph # [place] # Eos # Baso # Sodium Potassium Chloride Carbon Dioxide Anion Gap BUN Creatinine Est GFR ( Amer) Est GFR (Non-Af Amer) POC Glucose (mg/dL) 140 H 111 H Random Glucose Calcium Phosphorus Magnesium Total Bilirubin AST ALT Alkaline Phosphatase Total Protein Albumin Globulin Albumin/Globulin Ratio Procalcitonin 0.20 TSH 3rd Generation Digoxin 02/01/17 02/01/17 02/01/17 05:15 05:15 05:15 WBC 12.4 H RBC 5.11 Hgb 16.4 Hct 47.1 MCV 92.2 MCH 32.1 MCHC 34.8 RDW 13.4 Plt Count 173 MPV 12.7 H Gran % 66.7 Lymph % (Auto) 21.0 L [place] % (Auto) 11.3 H Eos % (Auto) 0.8 L Baso % (Auto) 0.2 Gran # 8.29 H Lymph # 2.6 [place] # 1.4 H Eos # 0.1 Baso # 0.02 Sodium 139 Potassium 3.4 L Chloride 103 Carbon Dioxide 21 Anion Gap 18 BUN 27 H Creatinine 1.4 Est GFR ( Amer) 59 Est GFR (Non-Af Amer) 49 POC Glucose (mg/dL) Random Glucose 129 H Calcium 8.9 Phosphorus 4.0 Magnesium 1.7 Total Bilirubin 1.5 H AST 26 ALT 19 Alkaline Phosphatase 79 Total Protein 6.7 Albumin 3.4 Globulin 3.4 Albumin/Globulin Ratio 1.0 L Procalcitonin TSH 3rd Generation 1.07 Digoxin 02/01/17 02/01/17 02/01/17 07:27 11:06 Unknown WBC RBC Hgb Hct MCV MCH MCHC RDW Plt Count MPV Gran % Lymph % (Auto) [place] % (Auto) Eos % (Auto) Baso % (Auto) Gran # Lymph # [place] # Eos # Baso # Sodium Potassium Chloride Carbon Dioxide Anion Gap BUN Creatinine Est GFR ( Amer) Est GFR (Non-Af Amer) POC Glucose (mg/dL) 142 H 143 H Random Glucose Calcium Phosphorus Magnesium Total Bilirubin AST ALT Alkaline Phosphatase Total Protein Albumin Globulin Albumin/Globulin Ratio Procalcitonin TSH 3rd Generation Digoxin < 0.4 L Assessment & Plan - Assessment and Plan (Free Text) Assessment: Assessment: CVA with left-sided weakness and acute right frontal lobe infarct status post repeat CT scan of the head this morning revealing infarct progression Dysphagia Hypokalemia Atrial fibrillation Leukocytosis Hypertension Tnx-[id number] diabetes Plan: Nothing by mouth, continue IV fluids for hydration On IV Cardizem PO meds are on hold on IV antibiotics Replace electrolytes as necessary Neurology follow-up as per cardiology Spoke to the son at the bedside, who says he is power of industrial health engineer, he would like to see father's progression before pursuing any invasive procedures for feeding tube. Thank you for this consult and for allowing us to participate in your patient's care, we'll make further recommendations based upon clinical course. Seen and discussed with Dr. Day <Lia Day V - Last Filed: 02/01/17 20:41> Meds - Medications Medications: Current Medications Apixaban (Eliquis) 5 mg PO BID [facility] PRN Reason: Protocol Last Admin: 02/01/17 19:55 Dose: Not Given Atorvastatin Calcium (Lipitor) 10 mg PO DIN [facility] Last Admin: 02/01/17 17:06 Dose: Not Given Clonidine HCl (Catapres-Tts3 0.3 Mg/24 Hr) 1 patch TD Q7D@1000 [facility] Donepezil HCl (Aricept) 10 mg PO HS [facility] Last Admin: 01/31/17 21:00 Dose: Not Given Doxycycline Hyclate (Doryx) 100 mg PO Q12 [facility] PRN Reason: Protocol Stop: 02/09/17 22:01 Last Admin: 02/01/17 10:07 Dose: Not Given Ezetimibe (Zetia) 10 mg PO DAILY [facility] Last Admin: 02/01/17 10:11 Dose: Not Given Hydralazine HCl (Apresoline) 10 mg IVP Q6 PRN PRN Reason: Systolic Blood Pressure Last Admin: 01/30/17 23:15 Dose: 10 mg Cefepime HCl (Maxipime 1gm) 1 gm in 100 mls @ 100 mls/hr IVPB Q8 [facility] PRN Reason: Protocol Stop: 02/08/17 14:01 Last Admin: 02/01/17 17:06 Dose: Not Given diltiaZEM IVPB 100mg in NS (Cardizem 100mg In Ns) 100 mls @ 5 mls/hr IV .Q20H PRN; Protocol; 5 MG/HR PRN Reason: TITRATE PER MD ORDER Last Admin: 02/01/17 10:31 Dose: 5 mg/hr, 5 mls/hr Potassium Chloride 10 meq/ (Sodium Chloride) 1,005 mls @ 70 mls/hr IV .[id number] [facility] Last Admin: 02/01/17 17:07 Dose: Not Given Insulin Human Regular (Humulin R Low) 0 units SC ACHS [facility] PRN Reason: Protocol Last Admin: 02/01/17 17:05 Dose: Not Given Metoprolol Succinate (Toprol Xl) 200 mg PO BRK [facility] Last Admin: 01/31/17 08:19 Dose: Not Given Metoprolol Tartrate (Lopressor) 5 mg IVP Q6H [facility] Last Admin: 02/01/17 07:20 Dose: 5 mg Nystatin (Nystop Topical Powder) 0 gm TOP BID [facility] Last Admin: 02/01/17 19:56 Dose: 1 applic Potassium Chloride (K-Dur 20 Meq Er Tab) 20 meq PO BRK [facility] Last Admin: 02/01/17 10:08 Dose: Not Given Thiamine HCl (Vitamin B1 Inj) 100 mg IM DAILY [facility] Stop: 02/04/17 11:00 Last Admin: 02/01/17 10:37 Dose: 100 mg Valsartan (Diovan) 320 mg PO DAILY [facility] Last Admin: 01/31/17 09:40 Dose: Not Given Ziprasidone (Geodon Inj) 10 mg IM Q6H PRN PRN Reason: Agitation Results - Vital Signs Recent Vital Signs: Last Vital Signs Temp 98 F 02/01/17 18:00 Pulse 92 H 02/01/17 18:00 Resp 18 02/01/17 18:00 BP 125/85 02/01/17 18:00 Pulse Ox 98 02/01/17 05:48 - Labs Result Diagrams: 02/01/17 05:15 02/01/17 05:15 Labs: Laboratory Results - last 24 hr 01/31/17 01/31/17 02/01/17 16:59 22:03 05:15 WBC 12.4 H RBC 5.11 Hgb 16.4 Hct 47.1 MCV 92.2 MCH 32.1 MCHC 34.8 RDW 13.4 Plt Count 173 MPV 12.7 H Gran % 66.7 Lymph % (Auto) 21.0 L [place] % (Auto) 11.3 H Eos % (Auto) 0.8 L Baso % (Auto) 0.2 Gran # 8.29 H Lymph # 2.6 [place] # 1.4 H Eos # 0.1 Baso # 0.02 Sodium Potassium Chloride Carbon Dioxide Anion Gap BUN Creatinine Est GFR ( Amer) Est GFR (Non-Af Amer) POC Glucose (mg/dL) 111 H Random Glucose Calcium Phosphorus Magnesium Total Bilirubin AST ALT Alkaline Phosphatase Total Protein Albumin Globulin Albumin/Globulin Ratio Vitamin B12 25-OH Vitamin D Total 31.3 Folate TSH 3rd Generation Digoxin 02/01/17 02/01/17 02/01/17 05:15 05:15 07:27 WBC RBC Hgb Hct MCV MCH MCHC RDW Plt Count MPV Gran % Lymph % (Auto) [place] % (Auto) Eos % (Auto) Baso % (Auto) Gran # Lymph # [place] # Eos # Baso # Sodium 139 Potassium 3.4 L Chloride 103 Carbon Dioxide 21 Anion Gap 18 BUN 27 H Creatinine 1.4 Est GFR ( Amer) 59 Est GFR (Non-Af Amer) 49 POC Glucose (mg/dL) 142 H Random Glucose 129 H Calcium 8.9 Phosphorus 4.0 Magnesium 1.7 Total Bilirubin 1.5 H AST 26 ALT 19 Alkaline Phosphatase 79 Total Protein 6.7 Albumin 3.4 Globulin 3.4 Albumin/Globulin Ratio 1.0 L Vitamin B12 927 25-OH Vitamin D Total Folate > 20.0 TSH 3rd Generation 1.07 Digoxin 02/01/17 02/01/17 02/01/17 11:06 16:03 Unknown WBC RBC Hgb Hct MCV MCH MCHC RDW Plt Count MPV Gran % Lymph % (Auto) [place] % (Auto) Eos % (Auto) Baso % (Auto) Gran # Lymph # [place] # Eos # Baso # Sodium Potassium Chloride Carbon Dioxide Anion Gap BUN Creatinine Est GFR ( Amer) Est GFR (Non-Af Amer) POC Glucose (mg/dL) 143 H 157 H Random Glucose Calcium Phosphorus Magnesium Total Bilirubin AST ALT Alkaline Phosphatase Total Protein Albumin Globulin Albumin/Globulin Ratio Vitamin B12 25-OH Vitamin D Total Folate TSH 3rd Generation Digoxin < 0.4 L Attending/Attestation - Attestation I have personally seen and examined this patient.: Yes I have fully participated in the care of the patient.: Yes I have reviewed all pertinent clinical information: Yes Notes (Text): this patient was seen and evaluated earlier . Discussed with the patient's son and also with the Dr. Mcmahon. The plan is to wait for 2-3 days for stabilization of his neurological status before subjecting him for deep sedation for the placement of the endoscopic feeding tube placement 02/01/17 20:39
--- NOTE | 2017-02-01 12:24 | CARD ---
APPROVED REPORT EXAM: Two-dimensional and M-mode echocardiogram with Doppler and color Doppler. INDICATION Atrial Fibrillation CVA 2D DIMENSIONS Left Atrium (2D)6.2 (1.6-4.0cm)IVSd1.3 (0.7-1.1cm) LVDd4.5 (3.9-5.9cm)PWd1.5 (0.7-1.1cm) LVDs3.2 (2.5-4.0cm)FS (%) 28.5 % LVEF (%)55.1 (>50%) M-Mode DIMENSIONS Aortic Root3.70 (2.2-3.7cm)Aortic Cusp Exc.1.70 (1.5-2.0cm) Aortic Valve AoV Peak Wgvlkdey877.0cm/Kenji Peak GR.8mmHgAI P 1/2 [id number] Mitral Valve E/A ratio0.0 TDI E/Lateral E'0.0E/Medial E'0.0 Pulmonary Valve PV Peak Ajonxaxt61.8cm/sPV Peak Grad.3mmHg Tricuspid Valve TR Peak Iharihib310xt/sRAP [id number] Peak Gr.38mmHg [id number] LEFT VENTRICLE The left ventricle is normal size. There is mild to moderate concentric left ventricular hypertrophy. The left ventricular function is normal. EF-55- 60% There is normal LV segmental wall motion. A fib No left ventricle thrombus noted on this study. There is no ventricular septal defect visualized. There is no left ventricular aneurysm. There is no mass noted in the left ventricle. RIGHT VENTRICLE The right ventricle is normal size. There is normal right ventricular wall thickness. The right ventricular systolic function is normal. ATRIA The left atrium is moderately dilated. The right atrium size is normal. The atrial septum is aneurysmal., But Intact by color Flow anfd bubble study. AORTIC VALVE The aortic valve is moderately thickened but opens well. There is trace aortic regurgitation. Aortic Sclerosis Vs mild There is no aortic valvular vegetation. MITRAL VALVE The mitral valve is thickened but opens well. Mitral annular calcification is mild to moderate. Mitral regurgitation is trace. There is no mitral valve stenosis. There is no evidence of mitral valve prolapse. TRICUSPID VALVE The tricuspid valve leaflets are thickened , but open well. There is mild tricuspid regurgitation.RVSP-48 mmof Hg. There is no tricuspid valve stenosis. There is no tricuspid valve prolapse or vegetation. PULMONIC VALVE The pulmonic valve is borderline thickened. There is trace pulmonic valvular regurgitation. There is no pulmonic valvular stenosis. GREAT VESSELS The aortic root is normal in size. The ascending aorta is normal in size. The pulmonary artery is normal. The IVC is normal in size and collapses >50% with inspiration. PERICARDIAL EFFUSION There is no pleural effusion. There is no pericardial effusion. <Conclusion> The left ventricle is normal size. There is mild to moderate concentric left ventricular hypertrophy. The left ventricular function is normal. EF-55- 60% The left atrium is moderately dilated. There is trace aortic regurgitation. Mitral regurgitation is trace. There is mild tricuspid regurgitation.RVSP-48 mmof Hg. The atrial septum is aneurysmal., But Intact by color Flow anfd bubble study. No vegetation or thrombus noted.
[2017-02-01] MEDS: Sodium Chloride 0.9% 1,000 ML IV SCH (13:36)
--- NOTE | 2017-02-01 13:39 | PN ---
DATE: 02/01/2017 REASON FOR CONSULTATION: Followup CVA, left-sided weakness, dysphagia, n.p.o., noncompliance with the medication. SUBJECTIVE: The patient was restless, that sedation, sleeping, not in apparent distress. PHYSICAL EXAMINATION: GENERAL: Sleeping, not in apparent distress. VITAL SIGNS: Temperature afebrile, heart rate 102, blood pressure 108/72. HEENT: PERRLA intact. NECK: Supple. No carotid bruit. No thyromegaly. CHEST: Clear to auscultation. HEART: S1 and S2, regular. ABDOMEN: Soft. EXTREMITIES: Clubbing and cyanosis negative. LABORATORY DATA: Blood workup as follows: WBC 12.4, hemoglobin 16.4, hematocrit 47.1, and platelet count 173. Chemistry shows sodium 139, potassium 3.4, chloride 103, carbon dioxide 21, anion gap of 18, BUN 26, creatinine 1.4, total protein 6.7, albumin 3.4, and albumin-globulin ratio 1. IMPRESSION: A 81-year-old male with a past medical history of hypertension, hyperlipidemia, chronic atrial fibrillation, noncompliance with the medications, he is supposed to take Eliquis, was taking once a day or sometime does not take at all. Information obtained from the son Zan, who was at the bedside yesterday, admitted with acute stroke with left-sided weakness. The patient is strictly nothing by mouth and the heart rate jumped from 89 to 120. RECOMMENDATIONS: Lovenox started, but held because of acute stroke. We will discuss with neurologist that whether we can start Lovenox. In the interim continue rectal suppository of aspirin. We will start Cardizem IV. Hold digoxin. Hold beta abelino. The patient is n.p.o. and start 10 mg of IV Cardizem followed by 5 mg an hour till the patient starts p.o. and then we will put back on beta abelino. The patient at home was on Toprol XL 200 mg. Now, the patient is n.p.o., we will start Cardizem and we will discuss with neurologist whether we can start Lovenox interim till the patient is n.p.o. We will follow with you. Overall, the patient's condition is critical. Prognosis guarded. We will wait for echo to rule out any thrombus and LV function. We will follow with you. Thank you Dr. Price for providing me the opportunity in taking care of the patient, Mila Bangura. Huber Valera MD
[2017-02-01] MEDS ORDERED: Digoxin 500 mcg/2ml (0.5 mg/2ml) Inj IVP SCH (14:00)
[2017-02-01 14:03] LABS: FOLATE > 20.0 ng/mL
--- NOTE | 2017-02-01 15:48 | PN ---
DATE: 02/01/2017 ADDENDUM REASON FOR ADDENDUM: The patient had repeat CAT scan done shows a small infarct with a radha-infarct, there is a small amount of hemorrhage. So, we will discontinue Lovenox and discontinue Apixaban (Eliquis) is already on hold. We will discuss with the neurologist reference. Discontinue Plavix, aspirin, et al, also because of the hemorrhage. We will follow with you. Thank you Dr. Price for the opportunity in taking care of the patient, Mila Bangura. Huber Valera MD
--- NOTE | 2017-02-01 17:10 | PN ---
SUBJECTIVE: The patient is currently seen on telemetry. He remains in atrial fibrillation. He is on IV fluids, IV potassium supplements and IV diltiazem. He apparently had failed 5 swallowing evaluations. There is still no tubing placed to start tube feedings and to give him medication orally. MEDICATIONS: Medication list reviewed. The patient is currently on hydralazine, Aricept, IV Cardizem, clonidine patch, Diovan is on hold, Doryx IV, Eliquis is on hold, Geodon p.r.n., insulin p.r.n., potassium chloride IV piggyback, Lipitor on hold, Lopressor orally on hold, cefepime intravenously, nystatin powder, normal saline 70 mL an hour, thiamine injectable, Zetia is on hold. OBJECTIVE: INTAKE/OUTPUT: Intake 1225, output not started. VITAL SIGNS: Blood pressure continues to be variable as low as 108/72 earlier today, as high as 174/101 at present. Temperature 97.4, axillary; pulse is 93 and irregular. Respiratory rate is 18. Pulse ox is 98%. HEENT EXAM: Shows him to be normocephalic and atraumatic. Eyes are closed. Mild facial asymmetry. NECK: Supple. No neck vein distention. CHEST: Clear to auscultation and percussion. No rales. No rhonchi. No wheezing. CARDIOVASCULAR: Shows an irregular S1 and S2. No S3 and no S4. No rub. ABDOMEN: Soft. Bowel sounds normal. No rebound. No guarding. No masses. EXTREMITIES: Show no lower extremity edema. No cyanosis or clubbing. Distal lower extremity pulses are 1 to 2+. LABORATORY DATA AND IMAGING: Repeat head CT scan done today shows a small amount of low attenuation seen in the medial right frontal lobe, possibly consistent with acute hemorrhage. This is not appreciated in the MRI that was done 2 days ago. CBC: White blood cell count today 12.4, hemoglobin 16.4 and platelet count is 173,000. Chemistries today show a sodium of 139; potassium 3.4, hence the patient is receiving potassium supplements; chloride 103 with a CO2 of 21. BUN 27 with the creatinine of 1.4 which is slightly higher than yesterday's 1.1. Glucose 129. Calcium, phosphorus, magnesium are normal. Bilirubin 1.5. Liver enzymes are normal. Albumin 3.4. Vitamin B12 normal at 927, folic acid level is greater than 20. ASSESSMENT: Uncontrolled hypertension, blood pressure control is variable. He likely is sensitive to receiving intravenous antihypertensive medication with a prompt fall in his blood pressure and then, several hours later, he spikes up again. I did discuss with the staff the need to place a Dobbhoff tube so that the patient: 1. Could receive nutrition. 2. Could receive blood pressure medication orally. This will give him steady state levels rather than acute treatment of the blood pressure. The patient, however, is on an IV Cardizem drip which will be providing him blood pressure medication continuously. This being is mostly for treatment of his atrial fibrillation with elevated heart rate. The patient is on a Catapres patch. I can change the Catapres patch to a 3 TTS patch to hopefully achieve better blood pressure control until decision is made regarding placement of a feeding tube. History of oce-[id number] diabetes mellitus. The patient continues on sliding scale insulin. Glucose control appears to be acceptable. History of atrial fibrillation. The patient is not receive beta-abelino therapy at this time. He does remain on IV Cardizem with reasonably good heart rate control. History of hyperlipidemia, mild elevation of LDL cholesterol. The patient at this point in time is not receiving oral medication such as statins and/or Zetia. Status post right-sided cerebrovascular accident, possibly hemorrhagic in nature at this point in time. The patient has failed 5 speech and swallowing evaluations. He remains with a dense left hemiparesis. There is no movement of the left upper extremity or left lower extremity. History of mild dementia. Mild hypokalemia. Magnesium levels are normal, agree with IV potassium supplements. The patient is receiving all IV fluid hydration potassium-free, which is likely the reason that he has developed a mild hypokalemia. PLAN: 1. If agreeable to family and agreeable to Dr. Mcmahon and the other consultants, the patient should have a Dobbhoff tube placed. This will enable more efficient administration of blood pressure medication along with nutrition. 2. Agree with potassium supplements. 3. Continue neuro followup. 4. Agree with discontinuation of Lovenox in light of the possible hemorrhagic CVA which had developed. 5. Continue to monitor the patient grossly on telemetry. 6. From my standpoint, I switch to a Catapres 3 TTS patch from a 1 TTS patch until we are able to place the patient back on oral medication for his blood pressure control which can be given efficiently through the Dobbhoff tube. Nelson Wall MD
--- NOTE | 2017-02-01 21:20 | CP.PCM.PN ---
Addendum entered and electronically signed by Dakota Lau DO 02/02/17 15:09: Correction to Physical Exam: Moving left hand to indicate yes/no (nodding/shaking wrist), able to point with left index finger to sites when questioned, some movement of RUE (Not LUE) ( motor strength 5/5 in wrist and with professor of biblical studies strength, 2-3/5 for remainder of RUE but questionable if actual strength vs poor effort from patient) Original Note: <Dakota Lau - Last Filed: 02/01/17 21:16> Subjective - Date & Time of Evaluation Date of Evaluation: 02/01/17 Time of Evaluation: 09:20 - Subjective Subjective: Neurology progress note, Dr. Cuevas service Patient seen and examined at bedside. This AM, patient experienced fluctuating HR from 100's-140's, resolved with IVP Lopressor 5mg, started on 5mg IVP q6h as per house physician due to remaining NPO and therefore unable to receive home PO Metoprolol. On exam, minimally expressive, but able to track with left eye and wave/point with left hand in response to questions. Denies acute pain or difficulty breathing. Objective - Vital Signs/Intake and Output Vital Signs (last 24 hours): Temp Pulse Resp BP Pulse Ox 98 F 92 H 18 125/85 98 02/01/17 18:00 02/01/17 18:00 02/01/17 18:00 02/01/17 18:00 02/01/17 05:48 - Medications Medications: Current Medications Apixaban (Eliquis) 5 mg PO BID PAGE PRN Reason: Protocol Last Admin: 02/01/17 19:55 Dose: Not Given Atorvastatin Calcium (Lipitor) 10 mg PO DIN [facility] Last Admin: 02/01/17 17:06 Dose: Not Given Clonidine HCl (Catapres-Tts3 0.3 Mg/24 Hr) 1 patch TD Q7D@1000 [facility] Donepezil HCl (Aricept) 10 mg PO HS [facility] Last Admin: 01/31/17 21:00 Dose: Not Given Doxycycline Hyclate (Doryx) 100 mg PO Q12 [facility] PRN Reason: Protocol Stop: 02/09/17 22:01 Last Admin: 02/01/17 10:07 Dose: Not Given Ezetimibe (Zetia) 10 mg PO DAILY [facility] Last Admin: 02/01/17 10:11 Dose: Not Given Hydralazine HCl (Apresoline) 10 mg IVP Q6 PRN PRN Reason: Systolic Blood Pressure Last Admin: 01/30/17 23:15 Dose: 10 mg Cefepime HCl (Maxipime 1gm) 1 gm in 100 mls @ 100 mls/hr IVPB Q8 PAGE PRN Reason: Protocol Stop: 02/08/17 14:01 Last Admin: 02/01/17 17:06 Dose: Not Given diltiaZEM IVPB 100mg in NS (Cardizem 100mg In Ns) 100 mls @ 5 mls/hr IV .Q20H PRN; Protocol; 5 MG/HR PRN Reason: TITRATE PER MD ORDER Last Admin: 02/01/17 10:31 Dose: 5 mg/hr, 5 mls/hr Potassium Chloride 10 meq/ (Sodium Chloride) 1,005 mls @ 70 mls/hr IV .[id number] [facility] Last Admin: 02/01/17 20:56 Dose: 70 mls/hr Insulin Human Regular (Humulin R Low) 0 units SC ACHS [facility] PRN Reason: Protocol Last Admin: 02/01/17 17:05 Dose: Not Given Metoprolol Succinate (Toprol Xl) 200 mg PO BRK [facility] Last Admin: 01/31/17 08:19 Dose: Not Given Metoprolol Tartrate (Lopressor) 5 mg IVP Q6H [facility] Last Admin: 02/01/17 07:20 Dose: 5 mg Nystatin (Nystop Topical Powder) 0 gm TOP BID [facility] Last Admin: 02/01/17 19:56 Dose: 1 applic Potassium Chloride (K-Dur 20 Meq Er Tab) 20 meq PO BRK [facility] Last Admin: 02/01/17 10:08 Dose: Not Given Thiamine HCl (Vitamin B1 Inj) 100 mg IM DAILY [facility] Stop: 02/04/17 11:00 Last Admin: 02/01/17 10:37 Dose: 100 mg Valsartan (Diovan) 320 mg PO DAILY [facility] Last Admin: 01/31/17 09:40 Dose: Not Given Ziprasidone (Geodon Inj) 10 mg IM Q6H PRN PRN Reason: Agitation - Labs Labs: 02/01/17 05:15 02/01/17 05:15 PT 10.9 Seconds (9.9-11.8) 01/29/17 10:45 INR 1.01 (0.93-1.08) 01/29/17 10:45 APTT 27.3 Seconds (23.7-30.8) 01/29/17 10:45 - Constitutional Appears: Non-toxic, No Acute Distress - Head Exam Head Exam: ATRAUMATIC. absent: NORMAL INSPECTION Additional comments: Left sided facial drop/paralysis, including muscles of facial expression and eyelid Non-verbal - Eye Exam Eye Exam: absent: Conjunctival injection, Scleral icterus Pupil Exam: Unequal. absent: Irregular Additional comments: Moving eyes to track staff and visual stimuli within R visual wilson, no gross nystagmus in left eye when tracking objects in right visual field R pupil PERRL to light challenge in both eyes, minimal accommodation in L pupil to light challenge in both eyes - ENT Exam ENT Exam: Mucous Membranes Moist - Neck Exam Neck Exam: absent: Full ROM - Respiratory Exam Respiratory Exam: Decreased Breath Sounds (mildly decreased breath sounds in all wilson), Clear to Ausculation Bilateral, NORMAL BREATHING PATTERN. absent: Accessory Muscle Use, Chest Wall Tenderness, Prolonged Expiratory Phase, Rales, Rhonchi, Wheezes - Cardiovascular Exam Cardiovascular Exam: Tachycardia, Irregular Rhythm, +S1, +S2. absent: Bradycardia, REGULAR RHYTHM, JVD, RRR, +S4 - GI/Abdominal Exam GI & Abdominal Exam: Soft, Normal Bowel Sounds. absent: Distended, Firm, Rigid , Diminished Bowel Sounds, Hyperactive Bowel Sounds, Hypoactive Bowel Sounds - Extremities Exam Additional comments: Moving left hand to indicate yes/no (nodding/shaking wrist), able to point with left index finger to sites when questioned, some movement of LUE (motor strength 5/5 in wrist and with professor of biblical studies strength, 2-3/5 for remainder of RUE but questionable if actual strength vs poor effort from patient) No gross pitting edema in bilateral LE, no gross erythema or palpable temperature abnormalities +2 radials and +1 dorsalis pedis pulses bilaterally - Neurological Exam Additional comments: initially awake and alert, responsive to visual stimuli within R visual field and would make hand motions to answer questions; later became less responsive to commands, but still tracking staff within R visual wilson, so question of worsening mental status vs losing interest vs decreased effort L pupil and eyelid abnormalities as documented above No active motor in LUE and LLE Visual L facial droop, non-verbal so unable to assess speech for slurring - Psychiatric Exam Additional comments: Unable to assess due to non-verbal state - Skin Skin Exam: Dry, Intact, Normal Color, Warm Assessment and Plan - Assessment and Plan (Free Text) Assessment: This is a 81 yo Upper Sor[place] M with PMH of Afib on Eliquis, dyslipidemia, poorly controlled HTN, DM, prior CVA, and dementia normally on Aricep who presented to [facility] [place] with acute onset of L-sided weakness and slurred speech on awakening, as reported by family. He was later determined to have an acute right MCA region infarct on MRI; not a tPA candidate due to unclear time of onset of stroke. CVA most likely 2/2 poorly controlled HTN and significant atherosclerotic disease with underlying dyslipidemia and diabetes. CT head obtained today was concerning for Acute/subacute right medial frontal infarct with small foci of increased attenuation within the right frontal lobe suggestive of small amount of acute hemorrhage, not noted to be present on prior scans on 01/30/17. In light of his, his ASA and Lovenox have been stopped, and a repeat MRI has been ordered for f/u on 02/03/17, which will be used to make further recommendations regarding possible use of anticoagulation/anti-platelet agents. As per Primary , patient is pending PEG tube. Plan: 1) Hold all anticoagulation and anti-platelet agents in setting of evolving hemorrhagic stroke (determined on head CT today) 2) Remains strict NPO as per swallow assessment, will likely need PEG tube for long-term feeding; defer to primary and GI for this 3) Repeat MRI on 02/03/17 for f/u of evolving/possibly hemorrhagic stroke, will use to make further recs regarding use of anticoagulants/anti-platelets 4) Persisting L-sided weakness and neglect, will need penitentiary rehab after resolution/stabilization of current condition 5) PT/OT 6) Thiamine for cognition Patient seen, reviewed, and discussed with attending, Dr. Cuevas. <Jonathan Cuevas - Last Filed: 02/02/17 16:30> Objective - Vital Signs/Intake and Output Vital Signs (last 24 hours): Temp Pulse Resp BP Pulse Ox 98.7 F 110 H 20 140/80 100 02/02/17 11:55 02/02/17 11:57 02/02/17 11:55 02/02/17 11:57 02/02/17 06:00 Intake and Output: 02/02/17 02/02/17 06:59 18:59 Intake Total 1060 0 Output Total 0 600 Balance 1060 -600 - Medications Medications: Current Medications Aspirin (Aspirin Chewable) 81 mg PO DAILY [facility] Atorvastatin Calcium (Lipitor) 10 mg PO DIN [facility] Last Admin: 02/01/17 17:06 Dose: Not Given Clonidine HCl (Catapres-Tts3 0.3 Mg/24 Hr) 1 patch TD Q7D@1000 [facility] Donepezil HCl (Aricept) 10 mg PO HS [facility] Last Admin: 02/01/17 22:01 Dose: Not Given Ezetimibe (Zetia) 10 mg PO DAILY [facility] Last Admin: 02/02/17 11:57 Dose: 10 mg Hydralazine HCl (Apresoline) 10 mg IVP Q6 PRN PRN Reason: Systolic Blood Pressure Last Admin: 01/30/17 23:15 Dose: 10 mg Doxycycline Hyclate 100 mg/ (Sodium Chloride) 100 mls @ 100 mls/hr IVPB Q12 PAGE PRN Reason: Protocol Potassium Chloride 20 meq/ (Sodium Chloride) 1,010 mls @ 40 mls/hr IV .Q24H [facility] Insulin Human Regular (Humulin R Low) 0 units SC ACHS [facility] PRN Reason: Protocol Last Admin: 02/02/17 07:42 Dose: Not Given Metoprolol Tartrate (Lopressor) 5 mg IVP Q6H [facility] Last Admin: 02/01/17 07:20 Dose: 5 mg Metoprolol Tartrate (Lopressor) 50 mg PO BID [facility] Last Admin: 02/02/17 11:57 Dose: 50 mg Nystatin (Nystop Topical Powder) 0 gm TOP BID [facility] Last Admin: 02/02/17 12:03 Dose: 1 applic Potassium Chloride (K-Dur 20 Meq Er Tab) 20 meq PO BRK [facility] Last Admin: 02/02/17 11:56 Dose: 20 meq Thiamine HCl (Vitamin B1 Inj) 100 mg IM DAILY [facility] Stop: 02/04/17 11:00 Last Admin: 02/02/17 11:57 Dose: 100 mg Valsartan (Diovan) 320 mg PO DAILY [facility] Last Admin: 01/31/17 09:40 Dose: Not Given Ziprasidone (Geodon Inj) 10 mg IM Q6H PRN PRN Reason: Agitation - Labs Labs: 02/02/17 08:30 02/02/17 08:30 PT 10.9 Seconds (9.9-11.8) 01/29/17 10:45 INR 1.01 (0.93-1.08) 01/29/17 10:45 APTT 27.3 Seconds (23.7-30.8) 01/29/17 10:45 Attending/Attestation - Attestation I have personally seen and examined this patient.: Yes I have fully participated in the care of the patient.: Yes I have reviewed all pertinent clinical information, including history, physical exam and plan: Yes
[2017-02-01] MEDS: Enoxaparin 80 mg Syringe SC SCH (21:45)
[2017-02-02] MEDS: diltiaZEM IVPB 100mg in NS 100 ML IV PRN (01:27)
--- NOTE | 2017-02-02 02:43 | PN ---
DATE: 02/01/2017 PULMONARY PROGRESS NOTE REFERRING PHYSICIAN: Dr. Mcmahon. SUBJECTIVE: The patient is lying in the bed, head at 45 degrees, family is at the bedside. Night was unremarkable. Not very compliant with CPAP and slight BiPAP. He is n.p.o. No hemoptysis, hematemesis, or hematuria. No diarrhea reported. OBJECTIVE: GENERAL: Sleepy, arousable. VITAL SIGNS: Temp is 98, heart rate is 68, respiratory rate is 20, blood pressure 125/85. Pulse ox 98% on room air. HEENT: Moist mucous membrane. Crowded airway. Mallampati score is IV. NECK: Supple. No JVD. LUNGS: Fair air flow with few rhonchi. HEART: S1 and S2. ABDOMEN: Soft and nontender. No organomegaly. EXTREMITIES: No edema. NEUROLOGIC: Sleepy, arousable. Has a facial droop, aphasic. MEDICATIONS: He is on hydralazine 10 mg q. 6 hours p.r.n., Aricept 10 mg daily. He is on IV Cardizem drip, clonidine patch 0.3 mg, Diovan 320 mg which is on hold, doxycycline on hold, Eliquis 5 mg twice a day was on hold, Geodon 10 mg q. 6 hours p.r.n., having IV fluid normal saline with supplement of potassium, vitamin B 100 mg daily. LABORATORY DATA: Shows hemoglobin 16.4, hematocrit 47.1, WBC 12.4, platelet count is 173. Sodium 139, potassium 3.4, chloride 103, bicarbonate 21, BUN 27, creatinine 1.4, glucose 139, calcium is 8.9, phosphorous 4.0, magnesium 1.7, AST 26, ALT 19, alkaline phosphatase is 79, albumin is 3.4. Vitamin B12 of 927, folate level greater than 20, TSH 1.07. Microbiology; blood culture, there is no growth. Has echocardiogram done today, which shows LV ejection fraction about 48%. Right ventricular systolic pressure is 48. CAT scan of the head done today shows acute/subacute right medial frontal infarct with a small foci of increased attenuation within the right frontal lobe suggested small amount of acute hemorrhage. IMPRESSION AND PLAN: Ischemic stroke, converted to small hemorrhagic stroke, hypertension, diabetes, atrial fibrillation, may have sleep apnea syndrome, oropharyngeal dysphagia. I spoke to the patient's family at bedside, all the questions were answered. The patient is off full anticoagulation, we will so just start the patient on low dose of Lovenox, probably high risk for deep vein thrombosis. We will also suggest continue baby aspirin, BiPAP while sleeping, may place nasogastric tube and start feeding and start medication through the nasogastric tube until the G-tube replacement. Start therapy. Thank you and we will follow with you. Huber Lang MD
--- NOTE | 2017-02-02 02:43 | PN ---
SUBJECTIVE: The patient is a 81-year-old male who originally consulted on the first time yesterday. He has been agitated after having been found to have an acute CVA in the anterior right cerebral artery. Today, I attempted to interview patient, he was drowsy. He did open his eyes when I called his name. He was able to slightly slowly able to tell the fact that he could feel my feeling in his right arm, but not in his left arm. He could not move his left upper extremity. The patient had a CT scan of the head this morning. It revealed a subacute right medial and frontal infract with a small focus of increased attenuation of right frontal lobe suggestive of small amount of acute hemorrhage. Hemorrhage was not appreciated on gradient echo sequences as part of MRI exam yesterday. This infarct apparently has progressed in appearance when compared to his CAT scan of 01/30/2017. I spoke with the patient's at bedside. She says patient has been sleeping the entire time that he has been here. I reviewed speech therapy nurse's note. Speech therapist noted the patient to be lethargic and poorly responsive. He is n.p.o. LABORATORY DATA: The patient's current laboratory data; his blood sugar is 143, sodium 139, potassium 3.34, chloride 103, CO2 of 21, anion gap 18, BUN 27, creatinine 1.4, estimated GFR of 49. Rest of profile is normal except for total bilirubin of 1.5, TSH 1.07. His blood cultures have all been reportedly negative. No growth after 24 hours and 3 days respectively. CURRENT MEDICATIONS: Includes p.r.n. Apresoline 10 mg IV q.6 hours; Toprol has not been given, XL 200 mg; Zetia is not given; Catapres patch not given; Diovan not given; Aricept not given. He has received no insulin coverage, he has not received any presently over the last 24 hours or Lipitor or IM Geodon p.r.n. He is on Maxipime IV and vitamin B1 injections and doxycycline which has not been given. He did receive this morning Lopressor 5 mg IV which has been ordered q.6 hours. Due to elevated blood pressure, he has also been receiving IV Cardizem 100 mg q.20 hours p.r.n. and potassium IV. PHYSICAL EXAMINATION: VITAL SIGNS: His blood pressure today at 10:30 was 163/99, pulse is 110, temp is afebrile rectally, O2 saturations 98% and respiratory rate of 18. IMPRESSION: Acute frontal lobe infarct, delirium. No agitations in the past 24 hours. Hypertension, hyperlipidemia. He has a left hemiplegia. He is mostly nonresponsive or poorly responsive. PLAN: We will continue to monitor mental status. David Sumner MD
[2017-02-02 05:32] LABS: HOMOCYSTEINE 9.2 umol/L (<11.4)
[2017-02-02] MEDS: Cefepime 1gm in NS 100ml 1 GM/100 ML BAG IVPB SCH (05:51)
--- NOTE | 2017-02-02 07:18 | CP.PCM.PN ---
<Bria Quach - Last Filed: 02/02/17 07:14> Subjective - Date & Time of Evaluation Date of Evaluation: 02/02/17 Time of Evaluation: 07:00 - Subjective Subjective: PGY-[address] Henson S: House doc was called for pt pulling NGT. Pt came in with decreases mentation (baseline AAOx3, now AAOx1-2) and CVA with L hemiparesis. Failed swallow eval. NGT was placed by RN O: VSS Card-irregular, S1, S2, not tachycardiac Pulm - CTA b/l, decrease lung sound bibasilar A: Dysphagia, Mentation changed - Mitten on R - NGT underneath diaphragm with no loop around, CXR read by me - Due to resolution of CXR, pending official report - explained to son the neccessity of mitten to avoid displacement of NGT which increases aspiration risk Will s/r/d/w Dr. Henson Objective - Vital Signs/Intake and Output Vital Signs (last 24 hours): Temp Pulse Resp BP Pulse Ox 98.5 F 98 H 20 140/91 H 100 02/02/17 06:00 02/02/17 06:00 02/02/17 06:00 02/02/17 06:00 02/02/17 06:00 Intake and Output: 02/02/17 02/02/17 06:59 18:59 Intake Total 1060 Output Total 0 Balance 1060 - Medications Medications: Current Medications Apixaban (Eliquis) 5 mg PO BID [facility] PRN Reason: Protocol Last Admin: 02/01/17 19:55 Dose: Not Given Atorvastatin Calcium (Lipitor) 10 mg PO DIN [facility] Last Admin: 02/01/17 17:06 Dose: Not Given Clonidine HCl (Catapres-Tts3 0.3 Mg/24 Hr) 1 patch TD Q7D@1000 [facility] Donepezil HCl (Aricept) 10 mg PO HS [facility] Last Admin: 02/01/17 22:01 Dose: Not Given Doxycycline Hyclate (Doryx) 100 mg PO Q12 [facility] PRN Reason: Protocol Stop: 02/09/17 22:01 Last Admin: 02/01/17 21:44 Dose: Not Given Ezetimibe (Zetia) 10 mg PO DAILY [facility] Last Admin: 02/01/17 10:11 Dose: Not Given Hydralazine HCl (Apresoline) 10 mg IVP Q6 PRN PRN Reason: Systolic Blood Pressure Last Admin: 01/30/17 23:15 Dose: 10 mg Cefepime HCl (Maxipime 1gm) 1 gm in 100 mls @ 100 mls/hr IVPB Q8 [facility] PRN Reason: Protocol Stop: 02/08/17 14:01 Last Admin: 02/02/17 05:51 Dose: 100 mls/hr diltiaZEM IVPB 100mg in NS (Cardizem 100mg In Ns) 100 mls @ 5 mls/hr IV .Q20H PRN; Protocol; 5 MG/HR PRN Reason: TITRATE PER MD ORDER Last Admin: 02/02/17 01:27 Dose: 5 mg/hr, 5 mls/hr Potassium Chloride 10 meq/ (Sodium Chloride) 1,005 mls @ 70 mls/hr IV .[id number] [facility] Last Admin: 02/02/17 07:04 Dose: Not Given Insulin Human Regular (Humulin R Low) 0 units SC ACHS [facility] PRN Reason: Protocol Last Admin: 02/01/17 22:03 Dose: Not Given Metoprolol Succinate (Toprol Xl) 200 mg PO BRK [facility] Last Admin: 01/31/17 08:19 Dose: Not Given Metoprolol Tartrate (Lopressor) 5 mg IVP Q6H [facility] Last Admin: 02/01/17 07:20 Dose: 5 mg Nystatin (Nystop Topical Powder) 0 gm TOP BID [facility] Last Admin: 02/01/17 19:56 Dose: 1 applic Potassium Chloride (K-Dur 20 Meq Er Tab) 20 meq PO BRK [facility] Last Admin: 02/01/17 10:08 Dose: Not Given Thiamine HCl (Vitamin B1 Inj) 100 mg IM DAILY [facility] Stop: 02/04/17 11:00 Last Admin: 02/01/17 10:37 Dose: 100 mg Valsartan (Diovan) 320 mg PO DAILY [facility] Last Admin: 01/31/17 09:40 Dose: Not Given Ziprasidone (Geodon Inj) 10 mg IM Q6H PRN PRN Reason: Agitation - Labs Labs: 02/01/17 05:15 02/01/17 05:15 PT 10.9 Seconds (9.9-11.8) 01/29/17 10:45 INR 1.01 (0.93-1.08) 01/29/17 10:45 APTT 27.3 Seconds (23.7-30.8) 01/29/17 10:45 <John Henson - Last Filed: 02/02/17 09:37> Objective - Vital Signs/Intake and Output Vital Signs (last 24 hours): Temp Pulse Resp BP Pulse Ox 98.5 F 98 H 20 140/91 H 100 02/02/17 06:00 02/02/17 06:00 02/02/17 06:00 02/02/17 06:00 02/02/17 06:00 Intake and Output: 02/02/17 02/02/17 06:59 18:59 Intake Total 1060 Output Total 0 Balance 1060 - Medications Medications: Current Medications Apixaban (Eliquis) 5 mg PO BID [facility] PRN Reason: Protocol Last Admin: 02/01/17 19:55 Dose: Not Given Atorvastatin Calcium (Lipitor) 10 mg PO DIN [facility] Last Admin: 02/01/17 17:06 Dose: Not Given Clonidine HCl (Catapres-Tts3 0.3 Mg/24 Hr) 1 patch TD Q7D@1000 [facility] Donepezil HCl (Aricept) 10 mg PO HS [facility] Last Admin: 02/01/17 22:01 Dose: Not Given Doxycycline Hyclate (Doryx) 100 mg PO Q12 [facility] PRN Reason: Protocol Stop: 02/09/17 22:01 Last Admin: 02/01/17 21:44 Dose: Not Given Ezetimibe (Zetia) 10 mg PO DAILY [facility] Last Admin: 02/01/17 10:11 Dose: Not Given Hydralazine HCl (Apresoline) 10 mg IVP Q6 PRN PRN Reason: Systolic Blood Pressure Last Admin: 01/30/17 23:15 Dose: 10 mg diltiaZEM IVPB 100mg in NS (Cardizem 100mg In Ns) 100 mls @ 5 mls/hr IV .Q20H PRN; Protocol; 5 MG/HR PRN Reason: TITRATE PER MD ORDER Last Admin: 02/02/17 01:27 Dose: 5 mg/hr, 5 mls/hr Potassium Chloride 10 meq/ (Sodium Chloride) 1,005 mls @ 70 mls/hr IV .[id number] [facility] Last Admin: 02/02/17 07:04 Dose: Not Given Insulin Human Regular (Humulin R Low) 0 units SC ACHS [facility] PRN Reason: Protocol Last Admin: 02/02/17 08:15 Dose: 1 units Metoprolol Succinate (Toprol Xl) 200 mg PO BRK [facility] Last Admin: 01/31/17 08:19 Dose: Not Given Metoprolol Tartrate (Lopressor) 5 mg IVP Q6H [facility] Last Admin: 02/01/17 07:20 Dose: 5 mg Nystatin (Nystop Topical Powder) 0 gm TOP BID [facility] Last Admin: 02/01/17 19:56 Dose: 1 applic Potassium Chloride (K-Dur 20 Meq Er Tab) 20 meq PO BRK [facility] Last Admin: 02/01/17 10:08 Dose: Not Given Thiamine HCl (Vitamin B1 Inj) 100 mg IM DAILY [facility] Stop: 02/04/17 11:00 Last Admin: 02/01/17 10:37 Dose: 100 mg Valsartan (Diovan) 320 mg PO DAILY [facility] Last Admin: 01/31/17 09:40 Dose: Not Given Ziprasidone (Geodon Inj) 10 mg IM Q6H PRN PRN Reason: Agitation - Labs Labs: 02/02/17 08:30 02/02/17 08:30 PT 10.9 Seconds (9.9-11.8) 01/29/17 10:45 INR 1.01 (0.93-1.08) 01/29/17 10:45 APTT 27.3 Seconds (23.7-30.8) 01/29/17 10:45 Attending/Attestation - Attestation I have personally seen and examined this patient.: No I have fully participated in the care of the patient.: Yes I have reviewed all pertinent clinical information, including history, physical exam and plan: Yes
[2017-02-02] MEDS: Insulin Reg-LOW-Coverage SC SCH ×5 (07:42→22:25)
[2017-02-02 08:59] LABS: HEMATOCRIT 45.8 % (42.0-52.0); MEAN CELL VOLUME 92.7 fl (80.0-105.0); MEAN CORPUSCULAR HEMOGLOBIN 32.8 pg (25.0-35.0); MEAN CORPUSCULAR HGB CONC 35.4 g/dl (31.0-37.0); RED CELL DISTRIBUTION WIDTH 13.4 % (11.5-14.5); WHITE BLOOD COUNT 14.5 10^3/ul (4.5-11.0)
--- NOTE | 2017-02-02 09:05 | RAD ---
HISTORY: check ngt placement COMPARISON: 01/31/2017 FINDINGS: LUNGS: No active pulmonary disease. PLEURA: No significant pleural effusion identified, no pneumothorax apparent. CARDIOVASCULAR: Mild cardiomegaly OSSEOUS STRUCTURES: No significant abnormalities. VISUALIZED UPPER ABDOMEN: Normal. OTHER FINDINGS: None. IMPRESSION: The nasogastric tube is in satisfactory position in the gastric fundus
[2017-02-02 09:19] LABS: ALKALINE PHOSPHATASE 76 U/L (38-126); ALT/SGPT 23 U/L (7-56); AST/SGOT 26 U/L (17-59); BILIRUBIN,TOTAL 1.4 mg/dL (0.2-1.3); BLOOD UREA NITROGEN 27 mg/dL (7-21); CALCIUM 8.9 mg/dL (8.4-10.5); CARBON DIOXIDE 18 mmol/L (21-33); CHLORIDE 111 mmol/L (98-107); GFR AFRICAN-AMERICAN > 60; GLUCOSE,RANDOM 158 mg/dL (70-110); MAGNESIUM 1.9 mg/dL (1.7-2.2); PHOSPHOROUS 3.4 mg/dL (2.5-4.5); POTASSIUM 3.8 mmol/L (3.6-5.0); SODIUM 144 mmol/L (132-148); TOTAL PROTEIN 6.9 g/dL (5.8-8.3)
[2017-02-02] MEDS ORDERED: Barium Sulfate Susp 2.1% w/v, 2.0% w/w 450 mL Bottle PO ONE (09:55)
[2017-02-02] MEDS ORDERED: Iohexol 350 MG/100 ML VIAL ONE (10:04)
--- NOTE | 2017-02-02 10:50 | CP.PCM.PN ---
<Nery Us - Last Filed: 02/02/17 11:53> Subjective - Date & Time of Evaluation Date of Evaluation: 02/02/17 Time of Evaluation: 08:50 - Subjective Subjective: Seen and examined at the bedside later this morning, son at bedside. Patient had NG tube inserted last night, chest x-ray confirms position. No acute overnight events reported. Patient is more alert today. Objective - Vital Signs/Intake and Output Vital Signs (last 24 hours): Temp Pulse Resp BP Pulse Ox 98.5 F 98 H 20 140/91 H 100 02/02/17 06:00 02/02/17 06:00 02/02/17 06:00 02/02/17 06:00 02/02/17 06:00 Intake and Output: 02/02/17 02/02/17 06:59 18:59 Intake Total 1060 Output Total 0 Balance 1060 - Medications Medications: Current Medications Apixaban (Eliquis) 5 mg PO BID [facility] PRN Reason: Protocol Last Admin: 02/01/17 19:55 Dose: Not Given Aspirin (Aspirin Chewable) 81 mg PO DAILY [facility] Atorvastatin Calcium (Lipitor) 10 mg PO DIN [facility] Last Admin: 02/01/17 17:06 Dose: Not Given Clonidine HCl (Catapres-Tts3 0.3 Mg/24 Hr) 1 patch TD Q7D@1000 [facility] Donepezil HCl (Aricept) 10 mg PO HS [facility] Last Admin: 02/01/17 22:01 Dose: Not Given Doxycycline Hyclate (Doryx) 100 mg PO Q12 [facility] PRN Reason: Protocol Stop: 02/09/17 22:01 Last Admin: 02/01/17 21:44 Dose: Not Given Ezetimibe (Zetia) 10 mg PO DAILY [facility] Last Admin: 02/01/17 10:11 Dose: Not Given Hydralazine HCl (Apresoline) 10 mg IVP Q6 PRN PRN Reason: Systolic Blood Pressure Last Admin: 01/30/17 23:15 Dose: 10 mg diltiaZEM IVPB 100mg in NS (Cardizem 100mg In Ns) 100 mls @ 5 mls/hr IV .Q20H PRN; Protocol; 5 MG/HR PRN Reason: TITRATE PER MD ORDER Stop: 02/02/17 11:00 Last Admin: 02/02/17 01:27 Dose: 5 mg/hr, 5 mls/hr Potassium Chloride 10 meq/ (Sodium Chloride) 1,005 mls @ 70 mls/hr IV .[id number] [facility] Last Admin: 02/02/17 07:04 Dose: Not Given Insulin Human Regular (Humulin R Low) 0 units SC ACHS [facility] PRN Reason: Protocol Last Admin: 02/02/17 07:42 Dose: Not Given Metoprolol Tartrate (Lopressor) 5 mg IVP Q6H [facility] Last Admin: 02/01/17 07:20 Dose: 5 mg Metoprolol Tartrate (Lopressor) 50 mg PO BID [facility] Nystatin (Nystop Topical Powder) 0 gm TOP BID [facility] Last Admin: 02/01/17 19:56 Dose: 1 applic Potassium Chloride (K-Dur 20 Meq Er Tab) 20 meq PO BRK [facility] Last Admin: 02/01/17 10:08 Dose: Not Given Thiamine HCl (Vitamin B1 Inj) 100 mg IM DAILY [facility] Stop: 02/04/17 11:00 Last Admin: 02/01/17 10:37 Dose: 100 mg Valsartan (Diovan) 320 mg PO DAILY [facility] Last Admin: 01/31/17 09:40 Dose: Not Given Ziprasidone (Geodon Inj) 10 mg IM Q6H PRN PRN Reason: Agitation - Labs Labs: 02/02/17 08:30 02/02/17 08:30 PT 10.9 Seconds (9.9-11.8) 01/29/17 10:45 INR 1.01 (0.93-1.08) 01/29/17 10:45 APTT 27.3 Seconds (23.7-30.8) 01/29/17 10:45 - Constitutional Appears: No Acute Distress - Eye Exam Eye Exam: Normal appearance. absent: Scleral icterus - ENT Exam ENT Exam: Mucous Membranes Moist Additional comments: positive NG tube - Neck Exam Neck Exam: Normal Inspection - Respiratory Exam Respiratory Exam: Decreased Breath Sounds, NORMAL BREATHING PATTERN. absent: Rales, Wheezes, Respiratory Distress - Cardiovascular Exam Cardiovascular Exam: +S1, +S2 - GI/Abdominal Exam GI & Abdominal Exam: Soft, Normal Bowel Sounds. absent: Distended, Guarding, Tenderness, Organomegaly, Rebound - Extremities Exam Extremities Exam: Normal Capillary Refill. absent: Calf Tenderness, Pedal Edema - Neurological Exam Neurological Exam: Awake - Skin Skin Exam: Dry, Warm Assessment and Plan - Assessment and Plan (Free Text) Assessment: Assessment: CVA with left-sided weakness and acute right frontal lobe infarct status post repeat CT scan of the head this morning revealing infarct progression Dysphagia Hypokalemia Atrial fibrillation Leukocytosis Hypertension Afx-[id number] diabetes Plan: Nothing by mouth, continue IV fluids for hydration On IV Cardizem Eliquis on hold NG tube PO meds on IV antibiotics Replace electrolytes as necessary Neurology follow-up as per cardiology Spoke to the son at the bedside, who says he is power of staff attorney, agrees for feeding tube when optimal. Seen and discussed with Dr. Day <Lia Day V - Last Filed: 02/02/17 21:27> Objective - Vital Signs/Intake and Output Vital Signs (last 24 hours): Temp Pulse Resp BP Pulse Ox 97 F L 99 H 18 170/90 H 100 02/02/17 18:00 02/02/17 18:55 02/02/17 18:00 02/02/17 18:55 02/02/17 06:00 Intake and Output: 02/02/17 02/03/17 18:59 06:59 Intake Total 0 Output Total 600 Balance -600 - Medications Medications: Current Medications Aspirin (Aspirin Chewable) 81 mg PO DAILY [facility] Last Admin: 02/02/17 15:32 Dose: 81 mg Atorvastatin Calcium (Lipitor) 10 mg PO DIN [facility] Last Admin: 02/02/17 20:24 Dose: 10 mg Clonidine HCl (Catapres-Tts3 0.3 Mg/24 Hr) 1 patch TD Q7D@1000 [facility] Donepezil HCl (Aricept) 10 mg PO HS [facility] Last Admin: 02/01/17 22:01 Dose: Not Given Ezetimibe (Zetia) 10 mg PO DAILY [facility] Last Admin: 02/02/17 11:57 Dose: 10 mg Hydralazine HCl (Apresoline) 10 mg IVP Q6 PRN PRN Reason: Systolic Blood Pressure Last Admin: 01/30/17 23:15 Dose: 10 mg Doxycycline Hyclate 100 mg/ (Sodium Chloride) 100 mls @ 100 mls/hr IVPB Q12 [facility] PRN Reason: Protocol Last Admin: 02/02/17 15:35 Dose: 100 mls/hr Potassium Chloride 20 meq/ (Sodium Chloride) 1,010 mls @ 40 mls/hr IV .Q24H [facility] Last Admin: 02/02/17 15:35 Dose: 40 mls/hr Insulin Human Regular (Humulin R Low) 0 units SC ACHS [facility] PRN Reason: Protocol Last Admin: 02/02/17 18:53 Dose: Not Given Metoprolol Tartrate (Lopressor) 5 mg IVP Q6H [facility] Last Admin: 02/01/17 07:20 Dose: 5 mg Metoprolol Tartrate (Lopressor) 50 mg PO BID [facility] Last Admin: 02/02/17 18:55 Dose: 50 mg Nystatin (Nystop Topical Powder) 0 gm TOP BID [facility] Last Admin: 02/02/17 19:08 Dose: 1 applic Potassium Chloride (K-Dur 20 Meq Er Tab) 20 meq PO BRK [facility] Last Admin: 02/02/17 11:56 Dose: 20 meq Thiamine HCl (Vitamin B1 Inj) 100 mg IM DAILY [facility] Stop: 02/04/17 11:00 Last Admin: 02/02/17 11:57 Dose: 100 mg Valsartan (Diovan) 320 mg PO DAILY [facility] Last Admin: 01/31/17 09:40 Dose: Not Given Ziprasidone (Geodon Inj) 10 mg IM Q6H PRN PRN Reason: Agitation - Labs Labs: 02/02/17 08:30 02/02/17 08:30 PT 10.9 Seconds (9.9-11.8) 01/29/17 10:45 INR 1.01 (0.93-1.08) 01/29/17 10:45 APTT 27.3 Seconds (23.7-30.8) 01/29/17 10:45 Attending/Attestation - Attestation I have personally seen and examined this patient.: Yes I have fully participated in the care of the patient.: Yes I have reviewed all pertinent clinical information, including history, physical exam and plan: Yes Notes (Text): this patient was seen and evaluated earlier. This is an addendum to the GI progress report dictated by Nery Us APN Discussed with the . The CT scan was reviewed. Will schedule for feeding tube placement after neurological optimization 02/02/17 20:59
[2017-02-02] MEDS: Potassium Chloride 20 mEq ER Tab PO SCH (11:56)
[2017-02-02] MEDS: Thiamine 100 mg/ml Inj IM SCH (11:57)
[2017-02-02] MEDS: Nystatin 100,000 Units/gm Topical Pow(15 gm) TOP SCH ×2 (12:03→19:08)
[2017-02-02] MEDS ORDERED: Potassium Chloride 20 MEQ in Sodium Chloride 0.45% 1,000 ML IV SCH ×2 (13:13→23:30)
--- NOTE | 2017-02-02 14:10 | CP.PCM.PN ---
Subjective - Date & Time of Evaluation Date of Evaluation: 02/02/17 Time of Evaluation: 09:55 - Subjective Subjective: Patient is more today, had NGT placed yesterday, no fevers overnight. Objective - Vital Signs/Intake and Output Vital Signs (last 24 hours): Temp Pulse Resp BP Pulse Ox 98.7 F 110 H 20 140/80 100 02/02/17 11:55 02/02/17 11:57 02/02/17 11:55 02/02/17 11:57 02/02/17 06:00 Intake and Output: 02/02/17 02/02/17 06:59 18:59 Intake Total 1060 Output Total 0 Balance 1060 - Medications Medications: Current Medications Aspirin (Aspirin Chewable) 81 mg PO DAILY [facility] Atorvastatin Calcium (Lipitor) 10 mg PO DIN [facility] Last Admin: 02/01/17 17:06 Dose: Not Given Clonidine HCl (Catapres-Tts3 0.3 Mg/24 Hr) 1 patch TD Q7D@1000 [facility] Donepezil HCl (Aricept) 10 mg PO HS [facility] Last Admin: 02/01/17 22:01 Dose: Not Given Ezetimibe (Zetia) 10 mg PO DAILY [facility] Last Admin: 02/02/17 11:57 Dose: 10 mg Hydralazine HCl (Apresoline) 10 mg IVP Q6 PRN PRN Reason: Systolic Blood Pressure Last Admin: 01/30/17 23:15 Dose: 10 mg Doxycycline Hyclate 100 mg/ (Sodium Chloride) 100 mls @ 100 mls/hr IVPB Q12 [facility] PRN Reason: Protocol Potassium Chloride 20 meq/ (Sodium Chloride) 1,010 mls @ 40 mls/hr IV .Q24H [facility] Insulin Human Regular (Humulin R Low) 0 units SC ACHS [facility] PRN Reason: Protocol Last Admin: 02/02/17 07:42 Dose: Not Given Metoprolol Tartrate (Lopressor) 5 mg IVP Q6H [facility] Last Admin: 02/01/17 07:20 Dose: 5 mg Metoprolol Tartrate (Lopressor) 50 mg PO BID [facility] Last Admin: 02/02/17 11:57 Dose: 50 mg Nystatin (Nystop Topical Powder) 0 gm TOP BID [facility] Last Admin: 02/02/17 12:03 Dose: 1 applic Potassium Chloride (K-Dur 20 Meq Er Tab) 20 meq PO BRK [facility] Last Admin: 02/02/17 11:56 Dose: 20 meq Thiamine HCl (Vitamin B1 Inj) 100 mg IM DAILY [facility] Stop: 02/04/17 11:00 Last Admin: 02/02/17 11:57 Dose: 100 mg Valsartan (Diovan) 320 mg PO DAILY [facility] Last Admin: 01/31/17 09:40 Dose: Not Given Ziprasidone (Geodon Inj) 10 mg IM Q6H PRN PRN Reason: Agitation - Labs Labs: 02/02/17 08:30 02/02/17 08:30 PT 10.9 Seconds (9.9-11.8) 01/29/17 10:45 INR 1.01 (0.93-1.08) 01/29/17 10:45 APTT 27.3 Seconds (23.7-30.8) 01/29/17 10:45 - Constitutional Appears: Non-toxic, No Acute Distress - Head Exam Head Exam: NORMAL INSPECTION - ENT Exam ENT Exam: Mucous Membranes Moist - Neck Exam Neck Exam: absent: Lymphadenopathy, Meningismus - Respiratory Exam Respiratory Exam: Decreased Breath Sounds - Cardiovascular Exam Cardiovascular Exam: +S1, +S2 - GI/Abdominal Exam GI & Abdominal Exam: Soft. absent: Tenderness Assessment and Plan - Assessment and Plan (Free Text) Plan: Assessment consider atypical healthcare-associated pneumonia acute CVA (ischemic, left frontal) HTN DM CAD dyslipidemia S/P hernia repair Plan We have stopped Cefepime and will continue on Doxycycline (we have kept it IV because the patient has swallowing issues) - day 3 of 4-7 days cultures have been negative, PCT is only 0.2; CXR shows chronic interstitial markings but no lobar consolidation will monitor clinically
--- NOTE | 2017-02-02 15:04 | CT ---
PROCEDURE: CT SINUSES WITHOUT CONTRAST HISTORY: leucocytosis COMPARISON: None TECHNIQUE: Contiguous axial CT images of the paranasal sinuses were obtained. Coronal and sagittal reformats were generated. Radiation dose: Total exam DLP = 243 mGy-cm. This CT exam was performed using one or more of the following dose reduction techniques: Automated exposure control, adjustment of the mA and/or kV according to patient size, and/or use of iterative reconstruction technique. FINDINGS: FRONTAL SINUSES: Clear. ETHMOID SINUSES: Clear. SPHENOID SINUSES: Clear. MAXILLARY SINUSES: The maxillary sinuses are hypoplastic bilaterally and completely opacified. SINUS DRAINAGE: No evidence of obstruction. NASAL SEPTUM: No significant deviation. No destructive lesion. MASS: None. SKULL BASE: Unremarkable. TEMPORAL BONES: Middle ears and mastoid grossly unremarkable. OTHER FINDINGS: A nasogastric tube is seen on the left side of the nasal cavity IMPRESSION: Hypoplastic maxillary sinuses. No acute findings
--- NOTE | 2017-02-02 15:15 | CP.PCM.PN ---
<Dakota Lau - Last Filed: 02/02/17 15:03> Subjective - Date & Time of Evaluation Date of Evaluation: 02/02/17 Time of Evaluation: 10:40 - Subjective Subjective: Neurology progress note, Dr. Cuevas service Patient seen and examined at bedside. No acute events overnight. On exam, minimally expressive, but more awake/alert as compared to yesterday, both eyes wide open today, tracking staff across left and right visual wilson. Still motioning with left hand, pointing repeatedly at NGT, no movement of L hand. Objective - Vital Signs/Intake and Output Vital Signs (last 24 hours): Temp Pulse Resp BP Pulse Ox 98.7 F 110 H 20 140/80 100 02/02/17 11:55 02/02/17 11:57 02/02/17 11:55 02/02/17 11:57 02/02/17 06:00 Intake and Output: 02/02/17 02/02/17 06:59 18:59 Intake Total 1060 0 Output Total 0 600 Balance 1060 -600 - Medications Medications: Current Medications Aspirin (Aspirin Chewable) 81 mg PO DAILY [facility] Atorvastatin Calcium (Lipitor) 10 mg PO DIN [facility] Last Admin: 02/01/17 17:06 Dose: Not Given Clonidine HCl (Catapres-Tts3 0.3 Mg/24 Hr) 1 patch TD Q7D@1000 [facility] Donepezil HCl (Aricept) 10 mg PO HS [facility] Last Admin: 02/01/17 22:01 Dose: Not Given Ezetimibe (Zetia) 10 mg PO DAILY [facility] Last Admin: 02/02/17 11:57 Dose: 10 mg Hydralazine HCl (Apresoline) 10 mg IVP Q6 PRN PRN Reason: Systolic Blood Pressure Last Admin: 01/30/17 23:15 Dose: 10 mg Doxycycline Hyclate 100 mg/ (Sodium Chloride) 100 mls @ 100 mls/hr IVPB Q12 PAGE PRN Reason: Protocol Potassium Chloride 20 meq/ (Sodium Chloride) 1,010 mls @ 40 mls/hr IV .Q24H [facility] Insulin Human Regular (Humulin R Low) 0 units SC ACHS [facility] PRN Reason: Protocol Last Admin: 02/02/17 07:42 Dose: Not Given Metoprolol Tartrate (Lopressor) 5 mg IVP Q6H [facility] Last Admin: 02/01/17 07:20 Dose: 5 mg Metoprolol Tartrate (Lopressor) 50 mg PO BID [facility] Last Admin: 02/02/17 11:57 Dose: 50 mg Nystatin (Nystop Topical Powder) 0 gm TOP BID [facility] Last Admin: 02/02/17 12:03 Dose: 1 applic Potassium Chloride (K-Dur 20 Meq Er Tab) 20 meq PO BRK [facility] Last Admin: 02/02/17 11:56 Dose: 20 meq Thiamine HCl (Vitamin B1 Inj) 100 mg IM DAILY [facility] Stop: 02/04/17 11:00 Last Admin: 02/02/17 11:57 Dose: 100 mg Valsartan (Diovan) 320 mg PO DAILY [facility] Last Admin: 01/31/17 09:40 Dose: Not Given Ziprasidone (Geodon Inj) 10 mg IM Q6H PRN PRN Reason: Agitation - Labs Labs: 02/02/17 08:30 02/02/17 08:30 PT 10.9 Seconds (9.9-11.8) 01/29/17 10:45 INR 1.01 (0.93-1.08) 01/29/17 10:45 APTT 27.3 Seconds (23.7-30.8) 01/29/17 10:45 - Additional Findings Additional findings: - Constitutional Appears: Non-toxic, No Acute Distress - Head Exam Head Exam: ATRAUMATIC. absent: NORMAL INSPECTION Left sided facial drop/paralysis of muscles of facial expression, but now L eyelid equally open as compared to R Non-verbal - Eye Exam Eye Exam: absent: Conjunctival injection, Scleral icterus Pupil Exam: Unequal. absent: Irregular Additional comments: Moving eyes to track staff and visual stimuli within bilateral visual wilson, no gross nystagmus PERRL bilaterally - ENT Exam ENT Exam: Mucous Membranes Moist - Neck Exam Neck Exam: absent: Full ROM (only moving eyes to track across room) - Respiratory Exam Respiratory Exam: Decreased Breath Sounds (mildly decreased breath sounds in all wilson), Clear to Ausculation Bilateral, NORMAL BREATHING PATTERN. absent: Accessory Muscle Use, Chest Wall Tenderness, Prolonged Expiratory Phase, Rales, Rhonchi, Wheezes - Cardiovascular Exam Cardiovascular Exam: RRR, +S1, +S2. absent: Tachycardia, Bradycardia, JVD, +S4 - GI/Abdominal Exam GI & Abdominal Exam: Soft, Normal Bowel Sounds. absent: Distended, Firm, Rigid , Diminished Bowel Sounds, Hyperactive Bowel Sounds, Hypoactive Bowel Sounds - Extremities Exam Moving left hand freely, repeated pointing/gesturing at NGT tube, some movement of RUE (motor strength 5/5 in wrist and with [employer] stitcher strength, 3/5 for remainder of RUE) Possible twinge of movement in LLE when instructed to move No gross pitting edema in bilateral LE, no gross erythema or palpable temperature abnormalities +2 radials and +1 dorsalis pedis pulses bilaterally - Neurological Exam Additional comments: More awake and alert today, both eyes wide open and tracking staff in room throughout exam Motor strength in extremities as documented in extremities exam Visual L facial droop, non-verbal so unable to assess speech for slurring - Psychiatric Exam Unable to assess due to non-verbal state, but able to follow most commands as pertains to R-sided extremities so at least some comprehension intact - Skin Skin Exam: Dry, Intact, Normal Color, Warm Assessment and Plan - Assessment and Plan (Free Text) Assessment: This is a 81 yo Upper Sor[place] M with PMH of Afib on Eliquis, dyslipidemia, poorly controlled HTN, DM, prior CVA, and dementia normally on Aricep who presented to [facility] [place] with acute onset of L-sided weakness and slurred speech on awakening, as reported by family. He was later determined to have an acute right MCA region infarct on MRI; not a tPA candidate due to unclear time of onset of stroke. CVA most likely 2/2 poorly controlled HTN and diffuse atherosclerotic disease with underlying dyslipidemia and diabetes. CT head obtained yesterday was concerning for evolving hemorrhage in the area of infarct, a repeat MRI was ordered for today for to reassess possible hemorrhage. Baby aspirin has been restarted as per Cardio, all other anticoagulation is being held pending MRI results. Will determine what anticoagulation to start after MRI results, as patient does have a hx of intermittent afib in the setting of this recent stroke. As per Primary, patient is pending PEG tube. Plan: 1) Baby aspirin restarted as per Cardio, all other AC currently on hold pending results of f/u MRI for possible hemorrhage evolution of infarct; does need some form of AC given hx of AFib unless risk is determined to outweigh benefits 2) Remains strict NPO as per swallow assessment, will likely need PEG tube for long-term feeding; defer to primary and GI for this 3) Persisting L-sided weakness and neglect, will need senior care rehab after resolution/stabilization of current condition 4) PT/OT 5) Thiamine for cognition Patient seen, reviewed, and discussed with attending, Dr. Cuevas. <Jonathan Cuevas - Last Filed: 02/02/17 16:31> Objective - Vital Signs/Intake and Output Vital Signs (last 24 hours): Temp Pulse Resp BP Pulse Ox 98.7 F 110 H 20 140/80 100 02/02/17 11:55 02/02/17 11:57 02/02/17 11:55 02/02/17 11:57 02/02/17 06:00 Intake and Output: 02/02/17 02/02/17 06:59 18:59 Intake Total 1060 0 Output Total 0 600 Balance 1060 -600 - Medications Medications: Current Medications Aspirin (Aspirin Chewable) 81 mg PO DAILY [facility] Atorvastatin Calcium (Lipitor) 10 mg PO DIN [facility] Last Admin: 02/01/17 17:06 Dose: Not Given Clonidine HCl (Catapres-Tts3 0.3 Mg/24 Hr) 1 patch TD Q7D@1000 [facility] Donepezil HCl (Aricept) 10 mg PO HS [facility] Last Admin: 02/01/17 22:01 Dose: Not Given Ezetimibe (Zetia) 10 mg PO DAILY [facility] Last Admin: 02/02/17 11:57 Dose: 10 mg Hydralazine HCl (Apresoline) 10 mg IVP Q6 PRN PRN Reason: Systolic Blood Pressure Last Admin: 01/30/17 23:15 Dose: 10 mg Doxycycline Hyclate 100 mg/ (Sodium Chloride) 100 mls @ 100 mls/hr IVPB Q12 [facility] PRN Reason: Protocol Potassium Chloride 20 meq/ (Sodium Chloride) 1,010 mls @ 40 mls/hr IV .Q24H [facility] Insulin Human Regular (Humulin R Low) 0 units SC ACHS [facility] PRN Reason: Protocol Last Admin: 02/02/17 07:42 Dose: Not Given Metoprolol Tartrate (Lopressor) 5 mg IVP Q6H [facility] Last Admin: 02/01/17 07:20 Dose: 5 mg Metoprolol Tartrate (Lopressor) 50 mg PO BID [facility] Last Admin: 02/02/17 11:57 Dose: 50 mg Nystatin (Nystop Topical Powder) 0 gm TOP BID [facility] Last Admin: 02/02/17 12:03 Dose: 1 applic Potassium Chloride (K-Dur 20 Meq Er Tab) 20 meq PO BRK [facility] Last Admin: 02/02/17 11:56 Dose: 20 meq Thiamine HCl (Vitamin B1 Inj) 100 mg IM DAILY [facility] Stop: 02/04/17 11:00 Last Admin: 02/02/17 11:57 Dose: 100 mg Valsartan (Diovan) 320 mg PO DAILY [facility] Last Admin: 01/31/17 09:40 Dose: Not Given Ziprasidone (Geodon Inj) 10 mg IM Q6H PRN PRN Reason: Agitation - Labs Labs: 02/02/17 08:30 02/02/17 08:30 PT 10.9 Seconds (9.9-11.8) 01/29/17 10:45 INR 1.01 (0.93-1.08) 01/29/17 10:45 APTT 27.3 Seconds (23.7-30.8) 01/29/17 10:45 Attending/Attestation - Attestation I have personally seen and examined this patient.: Yes I have fully participated in the care of the patient.: Yes I have reviewed all pertinent clinical information, including history, physical exam and plan: Yes
[2017-02-02] MEDS: Potassium Chloride 20 MEQ in Sodium Chloride 0.45% 1,000 ML IV SCH (15:35)
--- NOTE | 2017-02-02 15:39 | PN ---
REASON FOR CONSULTATION: Followup CVA, left-sided weakness, dysphagia, n.p.o., status post NG tube. SUBJECTIVE: The patient denies any chest pain, shortness of breath or any palpitation, and his son is at the bedside. OBJECTIVE: GENERAL: The patient is lying in bed, not in apparent distress, he is status post NG tube in the mouth. VITAL SIGNS: Temperature afebrile, heart rate 98, blood pressure 140/91. HEENT: PERRLA intact. NECK: Supple. No carotid bruit. No thyromegaly. CHEST: Clear to auscultation. HEART: S1 and S2, regular. ABDOMEN: Soft. EXTREMITIES: Clubbing and cyanosis negative. LABORATORY DATA: Blood workup as follows: WBC 14.4, hemoglobin 16.8, hematocrit 45.8, and platelet count 155. Chemistry shows sodium 144, potassium 3.8, chloride 111, carbon dioxide 18, anion gap of 19, BUN 27, creatinine 1.2. IMPRESSION: A 81-year-old male with past medical history of chronic atrial fibrillation, noncompliance of the medication admitted with acute cerebrovascular accident and the radha-infarct small hemorrhage noted. The patient has dysphagia and unable to swallow, failed swallowing evaluation, supplemented through NG tube. Because of the high rate AFib, IV Cardizem is started now, since the NG tube is placed now, the chest x-ray and abdomen shows NG tube in satisfactory position, so we will start the patient back on beta abelino, he was at home on a beta abelino and we will discontinue Cardizem, start also baby aspirin, the patient with 300 mg rectal suppository because of radha-infarct hemorrhage we did hold it, and also we will be holding Eliquis for a couple days and the repeat CAT scan review was okay. As per neurology recommendation, we will restart Eliquis. For now, I will treat blood pressure to prevent any further extension of hemorrhage and he is on baby aspirin. We will discontinue Cardizem. Continue . Continue atorvastatin. We will follow with you. We will discontinue IV Cardizem by 11 o'clock. The patient had echocardiography done yesterday that shows ejection fraction 55% to 60%, trace aortic regurgitation, , mild tricuspid regurgitation, RV systolic pressure of 48. Atrial septum is aneurysmal, but intact by color-flow and bubble study. No vegetation, no thrombus noted. No evidence of patent foramen ovale. Thank you Dr. Mcmahon for providing me the opportunity in taking care of the patient. Huber Valera MD
--- NOTE | 2017-02-02 16:13 | CT ---
PROCEDURE: CT Chest, Abdomen and Pelvis with and without intravenous contrast HISTORY: leucocytosis COMPARISON: None. TECHNIQUE: IV dose administered: 100 cc of Omni 350 Radiation dose: Total exam DLP = 2443 mGy-cm. This CT exam was performed using one or more of the following dose reduction techniques: Automated exposure control, adjustment of the mA and/or kV according to patient size, and/or use of iterative reconstruction technique. FINDINGS: CT CHEST WITH CONTRAST: LUNGS: Clear. No nodule, mass or consolidation. MEDIASTINUM: Unremarkable. Normal caliber aorta and pulmonary arterial trunk. No aortic dissection. Normal size heart. Coronary artery calcifications. LYMPH NODES: Unremarkable. PLEURA: Unremarkable. No pneumothorax. No pleural fluid. BONES: Unremarkable. OTHER FINDINGS: None. CT ABDOMEN AND PELVIS: LIVER: Unremarkable. No gross lesion or ductal dilatation. GALLBLADDER AND BILE DUCTS: Unremarkable. PANCREAS: Unremarkable. No gross lesion or ductal dilatation. SPLEEN: Unremarkable. ADRENALS: Unremarkable. No mass. KIDNEYS AND URETERS: Unremarkable. No hydronephrosis. No solid mass. VASCULATURE: Unremarkable. No aortic aneurysm. BOWEL: Unremarkable. No obstruction. No gross mural thickening. APPENDIX: Normal appendix. PERITONEUM: Unremarkable. No free fluid. No free air. LYMPH NODES: Unremarkable. No enlarged lymph nodes. BLADDER: Unremarkable. REPRODUCTIVE: Unremarkable. BONES: No acute fracture. OTHER FINDINGS: None. IMPRESSION: No acute findings.
--- NOTE | 2017-02-02 16:36 | PN ---
DATE: 02/02/2017 SUBJECTIVE The patient is seen lying in bed. Son is at bedside. He is sleeping. As per his son, he is able to hold the conversations. He is moving his right upper extremity and lower extremity, but he is very weak. PHYSICAL EXAMINATION GENERAL: Elderly male lying in bed. VITAL SIGNS: Blood pressure 140/80, heart rate 110, respiratory rate 20, temperature 98.7. HEENT: Normocephalic and atraumatic. Neck: Supple. No JVD. LUNGS: Bilateral equal air entry. CARDIAC: S1 and S2. Regular rate and rhythm. No murmur. No rub. ABDOMEN: Soft, nondistended, nontender. Bowel sounds present. EXTREMITIES: No lower extremity edema. Intake and output: 1060/not charted. LABORATORY DATA WBC 14.5, hemoglobin 16, hematocrit 45.8, platelets 155. Sodium 144, potassium 3.8, chloride 111, CO2 18, BUN 27, creatinine 1.2, glucose 158, calcium 8.9, phosphorus 3.4, magnesium 1.9, total bili 1.4, albumin 3.4, corrected calcium is 9.2. Urinalysis: Light yellow clear, pH 7.0, specific gravity 1020, protein 30, glucose 100. Urine culture, gram-positive cocci from 01/31. CURRENT MEDICATIONS 1. Apresoline p.r.n. 2. Aricept. 3. Aspirin. 4. Catapres patch #3. 5. Diovan 320 daily. 6. Doxycycline. 7. Geodon insulin. 8. Potassium 20 mEq daily. 9. Lipitor. 10. Lopressor 50 b.i.d. IV FLUIDS Normal saline with 10 mEq of KCL at 70 ml per hour, thiamine and Zetia. Cardizem drip discontinued this morning. ASSESSMENT AND PLAN 1. Uncontrolled hypertension, better controlled today. 2. Mzz-edwgioq-tpszvylqz diabetes mellitus. 3. Atrial fibrillation. 4. Hyperlipidemia. 5. Right-sided cerebrovascular accident with left hemiparesis. 6. Dementia. 7. Resolved hypokalemia. PLAN 1. Continue tube feeding. 2. Continue IV fluids. 3. Continue antihypertensives. 4. Diovan on hold. 5. Continue Lovenox. 6. Monitor electrolytes closely. 7. Physical therapy. 8. Change IV fluids to half-normal saline with 20 mEq of KCL Amy Saez MD [facility] # [id number]
--- NOTE | 2017-02-02 17:31 | PN ---
SUBJECTIVE: The patient is a 81-year-old male, who has currently undergone an acute right anterior cerebral artery ischemic stroke. The patient when questioned today was mostly tired, unresponsive; however, son is at the bedside said he was speaking more appropriate to him earlier today. The patient had an NG tube inserted. I reviewed consultants reports and nursing notes. The patient slept during the night with CPAP. The patient had portable chest x-ray. The patient earlier today had a chest x-ray which reviewed nasogastric tube in place without any significant pleural effusion or pneumothorax, there is mild cardiomegaly with no other findings reported. The patient had a CT scan of his sinuses which showed no acute findings. He also had chest CT which results are pending. MEDICATIONS: The patient's current medications include p.r.n. Apresoline, Aricept, low-dose aspirin, Diovan is ordered. The patient has had no psychotropic medicine. He has IV Lopressor ordered q. 6 h. He had p.o. Lopressor which he received early this morning 50 mg. He is receiving IV Vibramycin and potassium. LABORATORY DATA: His white count is 14,500, hemoglobin is 16.2 and platelet count 155,000. His metabolic profile; sodium 144, potassium 3.8, chloride 111, CO2 of 18, anion gap 19, BUN 27, creatinine 1.2, estimated GFR 58, glucose 158 and bilirubin 1.4. Rest of the parameters within normal range. PHYSICAL EXAMINATION: VITAL SIGNS:: Blood pressure 140/80, pulse 110, afebrile. IMPRESSION: The patient appears to have delirium. He is status post acute left anterior cerebral artery cerebrovascular accident, history of recently uncontrolled hypertension, diabetes mellitus, probable systemic inflammatory response syndrome. The patient also has left hemiplegia, dysphagia, hyperkalemia and atrial fibrillation. PLAN: We will continue to monitor mental status. David Sumner MD
--- NOTE | 2017-02-02 17:51 | PN ---
DATE: 02/02/2017 PULMONARY PROGRESS NOTE REFERRING PHYSICIAN: Dr. Mcmahon. SUBJECTIVE: He is lying in the bed, head at 45 degrees and nasogastric tube, just come back from CAT scan. Not much cough, no sputum production, no hemoptysis, hematemesis, or hematuria. No diarrhea reported. OBJECTIVE: VITAL SIGNS: Heart rate 98, respiratory rate is 20, blood pressure 140/80, pulse ox 100% on CPAP last night. HEENT: Moist mucous membrane. Crowded airway. NECK: Supple. No JVD. LUNGS: Fair air flow with few rhonchi. HEART: S1 and S2. ABDOMEN: Soft and nontender. No organomegaly. EXTREMITIES: No edema. NEUROLOGIC: Sleepy, arousable with left upper extremity . MEDICATIONS: He is on hydralazine 10 mg q. 6 hours, Aricept 10 mg daily, aspirin 81 mg daily, Catapres patch every 7 days, doxycycline 100 mg twice a day, Geodon 10 mg IM q.6 hours p.r.n., insulin coverage, potassium 20 mEq daily, Lipitor which is on hold, metoprololtartraat 50 mg twice a day, IV fluid with potassium supplement, vitamin B1 100 mg daily, Zetia 10 mg daily. LABORATORY DATA: Shows hemoglobin 16.2, hematocrit 45.8, WBC 14,000, platelet is 155. Sodium 144, potassium 3.8, chloride 111, bicarbonate 18, BUN 27, creatinine 1.2, glucose is 158, calcium is 8.9, phosphorous 3.4, magnesium 1.9, total bilirubin 1.4, AST 26, ALT 23, alkaline phosphatase is 76, albumin is 3.4. Urine culture: Some Gram-positive cocci. Blood cultures have been negative. CAT scan of his sinuses done shows hyperplastic maxillary sinus. No acute finding noted. Also had a CT of the abdomen and pelvis, which the report is still pending. IMPRESSION AND PLAN: Ischemic stroke, converted to small hemorrhage, hypertension, diabetes, atrial fibrillation, may have sleep apnea syndrome, oropharyngeal dysphagia, nasogastric tube, seen by GI. When cleared by GI, may start nasogastric tube feeding. Continue CPAP while sleeping. Platelet inhibitors, gastric and deep venous thrombosis prophylaxis. Will need gastrostomy tube possibly for long-term care. Thank you and we will follow with you. Huber Lang MD [facility] # [id number]
--- NOTE | 2017-02-03 03:08 | PN ---
DATE: 02/01/2017 SUBJECTIVE: The patient is stable. He is alert in bed and mildly lethargic, but he respond to verbal commands. He open his eyes and recognize me. He is alert to place and to person and time. No respiratory distress. Afebrile. No nausea. No vomiting. Family around and son around. PHYSICAL EXAMINATION: VITAL SIGNS: As follows; temperature 98, heart rate 68, blood pressure 125/85, and respiratory rate 18. HEAD AND NECK: Normal. No JVD. No thyromegaly. CHEST: Clear bilaterally. CARDIAC: First sound and second sound normal, irregular. ABDOMEN: Soft, obese, and nontender. EXTREMITIES: No edema. NEUROLOGIC: The patient is alert. He is able to respond and talk, but has left hemiplegia. LABORATORY DATA: Laboratory studies on 02/01/2017; white count 12.4, hemoglobin 16.4, hematocrit 47.1, and platelets 174. Chemistry shows sodium 139, potassium 3.4, chloride 103, bicarbonate 21, BUN 27, and creatinine 1.4. Liver function test is normal. Blood sugar 129. Hemoglobin A1c is 7.6. The patient also had some workup including head CAT scan done that day, which shows the following; acute/subacute right medial frontal infarctions with a small foci with increased attenuation within the right frontal lobe suggesting a small amount of acute hemorrhage. Also, the patient had an echocardiogram. Good LV function. No significant valvular stenosis. EF is 55%-60%. IMPRESSION AND PLAN: 1. Acute cerebrovascular accident. Discussed with the neurologist. He will hold the aspirin that day and today is #5 and we resume probably tomorrow. No Lovenox also as per Dr. Valera and we will monitor clinically. We will need physical therapy, occupational therapy, probably vocational rehab, acute rehab will be of great help and we will continue followup on that. 2. Dysphagia. We will reevaluate by speech therapist due to swallow mechanism, if it is not getting better now, we will consider feeding tube and then reevaluate on a regular basis and the swallowing evaluation on a regular basis and see how the patient progress. 3. Hypertension. Stable. Continue current medications. Dr. Wall, professional security officer on the case for hypertension. 4. Chronic atrial fibrillation and tachycardia. Dr. Valera, cardiology on the case, we will continue current treatment and we will follow up clinically and we will follow up with him. Currently, he is on Lopressor. Consider digoxin IV already given and resume clonidine patch and followup clinically. Continue current therapy. Continue physical and occupational therapy. Discussed with attending on the case and with the family, son, Mr. Zuluaga and the mother. We will followup clinically. Continue current therapy. Currently, he is on IV fluids and will followup on that. Lowell Mcmahon MD
--- NOTE | 2017-02-03 04:29 | PN ---
DATE: 02/02/2017 SUBJECTIVE: The patient is in the bed, in no respiratory distress. Little bit on the lethargic side, but he is responding to questions. The patient does not complaint of any pain. No headaches. He responds verbally to commands. PHYSICAL EXAMINATION: VITAL SIGNS: His temperature 97.8, heart rate 98, blood pressure 140/80, and respiratory rate 18. HEAD AND NECK: Normal. No JVD. No thyromegaly. CHEST: Clear. CARDIAC: First sound and second sound normal. Irregular heart rate. ABDOMEN: Soft and nontender. EXTREMITIES: No edema. NEUROLOGIC: The patient is awake and alert, left hemiplegia and left upper and left lower extremity weakness. LABORATORY DATA: Shows today labs are as follows; blood sugar 139, sodium 144, potassium 3.8, chloride 111, bicarb 18, BUN 27, creatinine 1.2, blood sugar 176 and liver function test is normal. CBC; white count 14.5, hemoglobin 16.2, hematocrit 45.8, and platelets 155. IMPRESSION AND PLAN: 1. Acute cerebrovascular accident. Continue current therapy. Continue aspirin. We will hold off on Lovenox. We will discussed with his gun profiler, Dr. Valera. We will continue SCDs, and physical therapy at bedside has been done. Continue occupational therapy. Plan is to get acute rehab. 2. Leukocytosis. The patient does have a history of sinus opacification on the x-ray. We will get a CT of the sinus. So, we will get a CT chest to rule out any aspiration pneumonia and CT of the abdomen and pelvis. The patient did have a history in the past of hematuria and blood in stool. We will get a CT of the abdomen and pelvis for that with contrast and we will follow up clinically. 3. Hypertension. Continue current blood pressure meds. 4. Tachycardia, chronic atrial fibrillation. The patient had an echo shows good LV function and left atrial enlargement, otherwise good LV function. No significant valvular heart disease. Continue Cardizem. Continue current medication. He is getting Lopressor 50 mg now two times a day through the NG tube that has been placed and inserted in good position. We will consider feeding to start at 30 mL and increase gradually. The patient also had leukocytosis. Continue doxycycline. We will check the CAT scan and continue current therapy. Discussed with the neurologist the case, Dr. Cuevas and discussed with the nursing staff. Discussed with Dr. Day. Lowell Mcmahon MD
[2017-02-03 07:21] LABS: HEMATOCRIT 45.9 % (42.0-52.0); MEAN CORPUSCULAR HEMOGLOBIN 32.3 pg (25.0-35.0); MEAN CORPUSCULAR HGB CONC 35.1 g/dl (31.0-37.0); MEAN PLATELET VOLUME 11.9 fl (7.0-11.0); RED CELL DISTRIBUTION WIDTH 13.4 % (11.5-14.5); WHITE BLOOD COUNT 14.9 10^3/ul (4.5-11.0)
[2017-02-03 07:27] LABS: ALB/GLOB RATIO 0.9 (1.1-1.8); ALKALINE PHOSPHATASE 76 U/L (38-126); ALT/SGPT 25 U/L (7-56); AST/SGOT 25 U/L (17-59); BILIRUBIN,TOTAL 1.1 mg/dL (0.2-1.3); BLOOD UREA NITROGEN 22 mg/dL (7-21); CARBON DIOXIDE 23 mmol/L (21-33); CHLORIDE 110 mmol/L (98-107); GFR AFRICAN-AMERICAN > 60; GLUCOSE,RANDOM 168 mg/dL (70-110); PHOSPHOROUS 2.5 mg/dL (2.5-4.5); POTASSIUM 3.7 mmol/L (3.6-5.0); SODIUM 142 mmol/L (132-148); TOTAL PROTEIN 6.7 g/dL (5.8-8.3)
[2017-02-03] MEDS: Insulin Reg-LOW-Coverage SC SCH ×4 (09:48→22:51)
[2017-02-03] MEDS: Thiamine 100 mg/ml Inj IM SCH (09:49)
[2017-02-03] MEDS: Nystatin 100,000 Units/gm Topical Pow(15 gm) TOP SCH ×2 (09:52→17:59)
[2017-02-03] MEDS: Potassium Chloride 20 mEq ER Tab PO SCH (09:52)
--- NOTE | 2017-02-03 12:14 | MRI ---
PROCEDURE: MRI BRAIN WITHOUT CONTRAST HISTORY: f/u evolving hemorrhagic stroke COMPARISON: MRI 01/30/2017 TECHNIQUE: Multiplanar, multisequence MR images of the brain were obtained without intravenous contrast enhancement. FINDINGS: HEMORRHAGE: No significant hemorrhagic component DWI: There is now a large infarct in the distribution of the right anterior cerebral artery. This measures 10 cm anterior to posterior and 2 cm in width. There is also some involvement of the occipital lobe medially seen on image 12 series 3. The infarct is best visualized on image 20 series 3. This is also visible on FLAIR and T2 imaging. This has significantly increased in size since the prior study. BRAIN PARENCHYMA: No mass effect or edema. There is moderate atrophy. Chronic microvascular changes are seen. VENTRICLES: Unremarkable. No hydrocephalus. CRANIUM: Unremarkable. ORBITS: Grossly unremarkable. PARANASAL SINUSES/MASTOIDS: Clear VASCULAR SYSTEM: Skull base flow voids intact. OTHER FINDINGS: None. IMPRESSION: Large infarct involving the medial surface of the right frontal parietal and occipital lobes in the distribution of the anterior cerebral artery. This has significantly increased in size. No significant hemorrhagic component
[2017-02-03] MEDS ORDERED: Potassium Chloride 20 mEq/15 ml LIQ UD PO STA (13:21)
--- NOTE | 2017-02-03 13:51 | PN ---
DATE: 02/03/2017 SUBJECTIVE: The patient is seen lying in bed. He is arousable. He is groggy. Son is at bedside. PHYSICAL EXAMINATION GENERAL: An elderly male lying in bed. VITAL SIGNS: Blood pressure 142/89, heart rate of 110, respiratory rate 22, temperature 97.5. HEENT: Normocephalic, atraumatic. NECK: Supple, no JVD. LUNGS: Bilateral rhonchi. CARDIAC: S1, S2, regular rhythm. No murmur and no rub. ABDOMEN: Distended, soft, nontender, bowel sounds present. EXTREMITIES: No lower extremity edema. INTAKE AND OUTPUT: Not charted. LABORATORY DATA: WBC 14.9, hemoglobin 16, hematocrit 45.9, platelets 137. Sodium 142, potassium 3.7, chloride 110, CO2 23, BUN 22, creatinine 0.9, glucose 168, calcium 9.0, phosphorus 2.5, magnesium 2.0, and total bili 1.1, albumin 3.3. Urine culture Staphylococcus lugdunensis, sensitive to Cipro, nitrofurantoin, gentamicin MRI of the brain, large infarct in the distribution of the right anterior cerebral artery, some involvement in the occipital lobe. No mass effect. No brain edema. MEDICATIONS: Apresoline, Aricept, aspirin, Catapres patch #3, Diovan 320 on hold, doxycycline 100, insulin, K-Dur 20 mEq, Lipitor, Lopressor 5 mg p.r.n., Lopressor 50 b.i.d., Lovenox, half-normal saline with 20 mEq of KCL at 40, thiamine, and Zetia. ASSESSMENT AND PLAN: 1. 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 2. Hypertension. 3. Hypernatremia. 4. Hypokalemia. 5. Staphylococcus urinary tract infection. 6. Dementia. 7. Hmr-anzwguj-sqdztrqhn diabetes mellitus. 8. Atrial fibrillation. 9. Hyperlipidemia. PLAN 1. Continue current antihypertensives. 2. Continue IV fluids with potassium. 3. Continue tube feedings. 4. Physical therapy. 5. Continue aspirin and Lovenox. Amy Saez MD [facility] # [id number]
[2017-02-03] MEDS: Potassium Chloride 20 MEQ in Sodium Chloride 0.45% 1,000 ML IV SCH (14:21)
--- NOTE | 2017-02-03 17:02 | PN ---
SUBJECTIVE: The patient is a 81-year-old male who is currently being followed for behavioral problems secondary to an anterior right middle cerebral artery CVA which is possibly still evolving. The patient is having hemorrhage possibly in the area of his infarct. The patient had just returned from brain MRI. His mental status reveals that he is awake, but has difficulty expressing himself. He has a complete left-sided weakness to the upper and lower extremities, has minimal ability to follow simple commands, somewhat drowsy. He has had no psychotropic medication, unable to complete a formal mental status examination. MEDICATIONS: His current medicines include p.r.n. Apresoline, Aricept, aspirin, Diovan, potassium, Lipitor, Lopressor, vitamin B1, Zetia; however, the patient is currently n.p.o. CURRENT LABORATORY DATA: White count is 14,900, hemoglobin is 16.1, platelet count 137,000. His metabolic profile is essentially normal except for chloride of 110, BUN of 22, creatinine of 0.9, estimated GFR of greater than 60, random glucose 188. Rest of profile is within normal range. PHYSICAL EXAMINATION: VITAL SIGNS: Blood pressure 142/89, pulse of 110, afebrile, respirations 22 per minute, O2 saturation 98%. I spoke to son at bedside; reviewed his nurse's notes, physician's notes. IMPRESSION: Mild delirium secondary to right anterior cerebral artery frontal infarct. PLAN: We will continue to monitor mental status, has no words now for anti-psychotropic medication. David Sumner MD
--- NOTE | 2017-02-03 17:31 | CP.PCM.PN ---
<Dakota Lau - Last Filed: 02/03/17 17:22> Subjective - Date & Time of Evaluation Date of Evaluation: 02/03/17 Time of Evaluation: 09:40 - Subjective Subjective: Neurology progress note, Dr. Cuevas service Patient seen and examined at bedside. No acute events overnight. On exam, minimally expressive, more lethargic, but still more awake/alertness as compared to 2 days prior. Following some commands, Still motioning with right hand, no movement of L hand. As per son at bedside, patient is more awake and alert closer to evening, when watching movies with the son; is able to speak, but clearly slurred speech, and son notes that the patient has a habit of frequently repeating self. Objective - Vital Signs/Intake and Output Vital Signs (last 24 hours): Temp Pulse Resp BP Pulse Ox 98.8 F 43 L 18 142/89 98 02/03/17 12:00 02/03/17 14:00 02/03/17 12:00 02/03/17 09:49 02/03/17 06:00 Intake and Output: 02/03/17 02/03/17 06:59 18:59 Intake Total 0 Balance 0 - Medications Medications: Current Medications Aspirin (Aspirin Chewable) 81 mg PO DAILY [facility] Last Admin: 02/03/17 09:50 Dose: 81 mg Atorvastatin Calcium (Lipitor) 10 mg PO DIN [facility] Last Admin: 02/02/17 20:24 Dose: 10 mg Clonidine HCl (Catapres-Tts3 0.3 Mg/24 Hr) 1 patch TD Q7D@1000 [facility] Donepezil HCl (Aricept) 10 mg PO HS [facility] Last Admin: 02/02/17 22:12 Dose: 10 mg Ezetimibe (Zetia) 10 mg PO DAILY [facility] Last Admin: 02/03/17 09:50 Dose: 10 mg Hydralazine HCl (Apresoline) 10 mg IVP Q6 PRN PRN Reason: Systolic Blood Pressure Last Admin: 01/30/17 23:15 Dose: 10 mg Doxycycline Hyclate 100 mg/ (Sodium Chloride) 100 mls @ 100 mls/hr IVPB Q12 [facility] PRN Reason: Protocol Last Admin: 02/03/17 09:50 Dose: 100 mls/hr Potassium Chloride 20 meq/ (Sodium Chloride) 1,010 mls @ 40 mls/hr IV .Q24H [facility] Last Admin: 02/03/17 14:21 Dose: 40 mls/hr Insulin Human Regular (Humulin R Low) 0 units SC ACHS [facility] PRN Reason: Protocol Last Admin: 02/03/17 11:59 Dose: Not Given Metoprolol Tartrate (Lopressor) 5 mg IVP Q6H [facility] Last Admin: 02/01/17 07:20 Dose: 5 mg Metoprolol Tartrate (Lopressor) 50 mg PO BID [facility] Last Admin: 02/03/17 09:49 Dose: 50 mg Nystatin (Nystop Topical Powder) 0 gm TOP BID [facility] Last Admin: 02/03/17 09:52 Dose: 1 applic Potassium Chloride (K-Dur 20 Meq Er Tab) 20 meq PO BRK [facility] Last Admin: 02/03/17 09:52 Dose: 20 meq Potassium Phos/Sodium Phos (Neutra-Phos) 1 pkt PO BID [facility] Stop: 02/04/17 23:00 Thiamine HCl (Vitamin B1 Inj) 100 mg IM DAILY [facility] Stop: 02/04/17 11:00 Last Admin: 02/03/17 09:49 Dose: 100 mg Valsartan (Diovan) 320 mg PO DAILY [facility] Last Admin: 01/31/17 09:40 Dose: Not Given - Labs Labs: 02/03/17 06:15 02/03/17 06:15 PT 10.9 Seconds (9.9-11.8) 01/29/17 10:45 INR 1.01 (0.93-1.08) 01/29/17 10:45 APTT 27.3 Seconds (23.7-30.8) 01/29/17 10:45 - Additional Findings Additional findings: - Constitutional Appears: Non-toxic, No Acute Distress - Head Exam Head Exam: ATRAUMATIC. absent: NORMAL INSPECTION Left sided facial drop/paralysis of muscles of facial expression, eyelids equally open Non-verbal - Eye Exam Eye Exam: absent: Conjunctival injection, Scleral icterus Pupil Exam: Unequal. absent: Irregular Additional comments: Moving eyes to track staff and visual stimuli within bilateral visual wilson, no gross nystagmus PERRL bilaterally - ENT Exam ENT Exam: Mucous Membranes Moist, NGT in place, tube feeds running - Neck Exam Neck Exam: absent: Full ROM (only moving eyes to track across room) - Respiratory Exam Respiratory Exam: Decreased Breath Sounds (mildly decreased breath sounds in all wilson), Clear to Ausculation Bilateral, NORMAL BREATHING PATTERN. absent: Accessory Muscle Use, Chest Wall Tenderness, Prolonged Expiratory Phase, Rales, Rhonchi, Wheezes - Cardiovascular Exam Cardiovascular Exam: Irregularly Irregular, +S1, +S2. absent: Tachycardia, Bradycardia, JVD, +S4 - GI/Abdominal Exam GI & Abdominal Exam: Soft, Normal Bowel Sounds. absent: Distended, Firm, Rigid , Diminished Bowel Sounds, Hyperactive Bowel Sounds, Hypoactive Bowel Sounds - Extremities Exam Moving right hand spontaneously and on command, some movement of RUE (motor strength 5/5 in wrist and with equine breeder strength, 3/5 for remainder of RUE) No LLE or LUE movement No gross pitting edema in bilateral LE, no gross erythema or palpable temperature abnormalities +2 radials and +1 dorsalis pedis pulses bilaterally - Neurological Exam Additional comments: More awake and alert today, both eyes wide open and tracking staff in room throughout exam Motor strength in extremities as documented in extremities exam Visual L facial droop, non-verbal so unable to assess speech for slurring Bilateral plantar reflexes intact - Psychiatric Exam Unable to assess due to non-verbal state, but able to follow most commands as pertains to R-sided extremities so at least some comprehension intact - Skin Skin Exam: Dry, Intact, Normal Color, Warm Assessment and Plan - Assessment and Plan (Free Text) Assessment: This is a 81 yo Sami M with PMH of Afib on Eliquis, dyslipidemia, poorly controlled HTN, DM, prior CVA, and dementia normally on Aricep who presented to [facility] with acute onset of L-sided weakness and slurred speech on awakening, as reported by family. He was later determined to have an acute right MCA region infarct on MRI; not a tPA candidate due to unclear time of onset of stroke. CVA most likely 2/2 poorly controlled HTN and diffuse atherosclerotic disease with underlying dyslipidemia and diabetes. CT head obtained 2 days prior was concerning for evolving hemorrhage in the area of infarct, repeat MRI today was notable for increased size of stroke without signs of hemorrhage, so will start on therapeutic anticoagulation with 1mg/kg Lovenox tomorrow morning. Baby aspirin has already been restarted as per Cardio. While there is a risk of hemorrhagic conversion of stroke while on anticoagulation, given the size of the stroke, the benefit of anticoagulation in a patient with known afib and prior stroke outweighs the risk of bleeding from anticoagulation. Would recommend a PEG tube for nutrition; as per Primary pending a PEG by GI. Plan: 1) Baby aspirin restarted as per Cardio, MRI negative for hemorrhage so will start on Lovenox 1mg/kg SC q12 beginning tomorrow AM 2) Remains strict NPO as per swallow assessment, rec PEG tube for long-term feeding; GI consulted for PEG by primary 3) Persisting L-sided weakness and neglect, will need kier pleater rehab after resolution/stabilization of current condition 4) PT/OT 5) Thiamine for cognition Patient seen, reviewed, and discussed with attending, Dr. Cuevas. <Jonathan Cuevas - Last Filed: 02/04/17 09:55> Objective - Vital Signs/Intake and Output Vital Signs (last 24 hours): Temp Pulse Resp BP Pulse Ox 97.9 F 110 H 18 146/96 H 96 02/04/17 06:00 02/04/17 06:00 02/04/17 06:00 02/04/17 06:00 02/04/17 00:01 Intake and Output: 02/04/17 02/04/17 06:59 18:59 Intake Total 1350 Balance 1350 - Medications Medications: Current Medications Aspirin (Aspirin Chewable) 81 mg PO DAILY [facility] Last Admin: 02/03/17 09:50 Dose: 81 mg Atorvastatin Calcium (Lipitor) 10 mg PO DIN [facility] Last Admin: 02/03/17 17:52 Dose: 10 mg Clonidine HCl (Catapres-Tts3 0.3 Mg/24 Hr) 1 patch TD Q7D@1000 [facility] Donepezil HCl (Aricept) 10 mg PO HS [facility] Last Admin: 02/03/17 21:09 Dose: 10 mg Ezetimibe (Zetia) 10 mg PO DAILY [facility] Last Admin: 02/03/17 09:50 Dose: 10 mg Hydralazine HCl (Apresoline) 10 mg IVP Q6 PRN PRN Reason: Systolic Blood Pressure Last Admin: 01/30/17 23:15 Dose: 10 mg Doxycycline Hyclate 100 mg/ (Sodium Chloride) 100 mls @ 100 mls/hr IVPB Q12 [facility] PRN Reason: Protocol Last Admin: 02/03/17 21:09 Dose: 100 mls/hr Potassium Chloride 20 meq/ (Sodium Chloride) 1,010 mls @ 40 mls/hr IV .Q24H [facility] Last Admin: 02/03/17 14:21 Dose: 40 mls/hr Sodium Chloride (Sodium Chloride 0.9%) 1,000 mls @ 100 mls/hr IV .Q10H [facility] diltiaZEM IVPB 100mg in NS (Cardizem 100mg In Ns) 100 mls @ 5 mls/hr IV .Q20H PRN; Protocol; 5 MG/HR PRN Reason: TITRATE PER MD ORDER Insulin Human Regular (Humulin R Low) 0 units SC ACHS [facility] PRN Reason: Protocol Last Admin: 02/04/17 08:00 Dose: 2 units Metoprolol Tartrate (Lopressor) 5 mg IVP Q6H [facility] Last Admin: 02/01/17 07:20 Dose: 5 mg Metoprolol Tartrate (Lopressor) 50 mg PO BID [facility] Last Admin: 02/03/17 17:52 Dose: 50 mg Nystatin (Nystop Topical Powder) 0 gm TOP BID [facility] Last Admin: 02/03/17 17:59 Dose: 1 applic Potassium Chloride (Potassium Chloride Oral Soln) 20 meq PO 0800 [facility] Last Admin: 02/04/17 08:01 Dose: 20 meq Potassium Phos/Sodium Phos (Neutra-Phos) 1 pkt PO BID [facility] Stop: 02/04/17 23:00 Last Admin: 02/03/17 17:52 Dose: 1 pkt Thiamine HCl (Vitamin B1 Inj) 100 mg IM DAILY [facility] Stop: 02/04/17 11:00 Last Admin: 02/03/17 09:49 Dose: 100 mg Valsartan (Diovan) 320 mg PO DAILY [facility] Last Admin: 01/31/17 09:40 Dose: Not Given - Labs Labs: 02/04/17 06:45 02/04/17 06:45 PT 10.9 Seconds (9.9-11.8) 01/29/17 10:45 INR 1.01 (0.93-1.08) 01/29/17 10:45 APTT 27.3 Seconds (23.7-30.8) 01/29/17 10:45 Attending/Attestation - Attestation I have personally seen and examined this patient.: Yes I have fully participated in the care of the patient.: Yes I have reviewed all pertinent clinical information, including history, physical exam and plan: Yes
[2017-02-03] MEDS: Potassium & Sodium Phosphate PO SCH (17:52)
--- NOTE | 2017-02-03 22:01 | PN ---
DATE: 02/03/2017 SUBJECTIVE: The patient seen in bed, no acute distress, nontoxic. PHYSICAL EXAMINATION: VITAL SIGNS: Temperature is 98, blood pressure is 150/60 and respiratory rate of 16. HEENT: Unremarkable. NECK: Supple. LUNGS: Has decreased breath sounds. HEART: Normal S1 and S2. ABDOMEN: Soft and nontender. LABORATORY EXAMINATION: Reveals a white count of 14,900, hemoglobin of 16 and platelets of 137. Chemistry reveals a BUN of 22, creatinine of 0.9 and procalcitonin 0.2. Urinalysis is noted, and microbiology reveals Staphylococcus lugdunensis in the urine. Blood cultures are negative. Review of orders reveals the patient to be on doxycycline. ASSESSMENT AND PLAN: A 81-year-old male with consider atypical healthcare-associated pneumonia, acute cerebrovascular accident with , hypertension, diabetes, coronary artery disease, dyslipidemia and currently on doxycycline day #4, would complete 4 to 7 days. The patient's son was present at the bedside and case discussed with the patient's son. Jorge Rashid MD
--- NOTE | 2017-02-04 01:12 | CON ---
HISTORY OF PRESENT ILLNESS: This patient was seen and evaluated earlier. Discussed with Dr. Mcmahon. The patient's son was at bedside at the time of examination. Comfortably receiving NG feeding. PHYSICAL EXAMINATION VITAL SIGNS: Temperature is 90.8, pulse 92, respirations 18, blood pressure 126/105. HEENT: Atraumatic, anicteric. NECK: Supple. HEART: S1 and S2 heard. LUNGS: Bilateral air entry present. ABDOMEN: Soft. There is no mass palpable. EXTREMITIES: No edema. The patient has left facial droop. NEUROLOGIC: No movement to the left side except of lower extremities. LABORATORY DATA: Hemoglobin 16.1, hematocrit 45.9, WBC 14.9, platelet 137. Glucose 168. IMPRESSION: This is a 81-year-old patient, status post cerebrovascular accident to the left-sided weakness. GI consult requested for feeding tube placementand failed the swallowing evaluation. Scheduled for PEG tube placement tomorrow. Neurology noticed would recommend to hold of the Lovenox in view of this PEG tube scheduled for tomorrow. It is okay to continue the aspirin. Thank you very much for allowing us to participate in the care of the patient. Lia Day MD
--- NOTE | 2017-02-04 06:56 | PN ---
DATE: 02/03/2017 PULMONARY PROGRESS NOTE REFERRING PHYSICIAN: Dr. Mcmahon. SUBJECTIVE: The patient lying in the bed, head at 45 degrees with nasogastric tube, much more awake and alert, is at bedside, family is at bedside, more verbal today. No hemoptysis, no hematemesis, no hematuria, no diarrhea reported. OBJECTIVE: GENERAL: In no acute distress. VITAL SIGNS: Temperature 98, heart rate 100, respiratory rate 20, blood pressure 156/105, pulse ox 98% on nasal cannula. HEENT: Small oral cavity. NECK: Supple, no JVD. LUNGS: Fair airflow with few rhonchi. HEART: S1 and S2. ABDOMEN: Soft, nontender. No organomegaly. EXTREMITIES: There is no edema. NEUROLOGIC: Awake and alert, does follow simple commands, aphasic with left hemiparesis. MEDICATIONS: He is on hydralazine 10 mg q.6 hours p.r.n., Aricept 10 mg at bedtime, aspirin 81 mg daily, Catapres patch 0.3 mg weekly, Diovan 320 mg daily, doxycycline 100 mg q. 12 hours, insulin coverage, potassium 20 mEq daily, Lipitor 10 mg daily, metoprolol tartrate 25 mg IV q.6 hours, and also metoprolol tartarate 50 mg b.i.d., Neutra-Phos 1 pack twice a day, IV fluid, Zetia 10 mg daily, vitamin B 100 mg daily. LABORATORY DATA: Shows hemoglobin 16.1, hematocrit 45.9, WBC 14.9, platelet is 137. Sodium 142, potassium 3.7, chloride 110, bicarbonate 23, BUN 22, creatinine 0.9, glucose 168, calcium 9.0, phosphorus 2.5, magnesium 2.0. AST 25, ALT 25, alkaline phosphatase 76. ProBNP 4660. Albumin is 3.3. Digoxin level two days ago is less than 0.4. He had MRI of the brain done today, which shows large infarct involving the medial surface of the right frontal, parietal, and occipital lobe in a distribution of the anterior cerebral artery. This has significantly increased in size than the previous images. No significant hemorrhage reported. IMPRESSION AND PLAN: Ischemic stroke, hypertension, diabetes, atrial fibrillation, may have sleep apnea syndrome, oropharyngeal dysphagia, nasogastric tube. I spoke to the family at the bedside, all the questions were answered. The patient is more awake and alert today. We will continue BiPAP while sleeping. Keep head 45 degrees. Gastric prophylaxis. DVT prophylaxis. Aspiration precaution. Start physical therapy at bedside. Thank you and we will follow with you. Huber Lang MD
[2017-02-04 07:28] LABS: HEMATOCRIT 47.1 % (42.0-52.0); MEAN CELL VOLUME 93.3 fl (80.0-105.0); MEAN CORPUSCULAR HEMOGLOBIN 32.1 pg (25.0-35.0); MEAN CORPUSCULAR HGB CONC 34.4 g/dl (31.0-37.0); MEAN PLATELET VOLUME 12.7 fl (7.0-11.0); RED CELL DISTRIBUTION WIDTH 13.6 % (11.5-14.5); WHITE BLOOD COUNT 12.8 10^3/ul (4.5-11.0)
[2017-02-04 07:51] LABS: ALKALINE PHOSPHATASE 75 U/L (38-126); ALT/SGPT 27 U/L (7-56); AST/SGOT 25 U/L (17-59); BILIRUBIN,TOTAL 1.2 mg/dL (0.2-1.3); BLOOD UREA NITROGEN 28 mg/dL (7-21); CALCIUM 9.2 mg/dL (8.4-10.5); CARBON DIOXIDE 23 mmol/L (21-33); CHLORIDE 110 mmol/L (98-107); GFR AFRICAN-AMERICAN > 60; GLUCOSE,RANDOM 220 mg/dL (70-110); POTASSIUM 4.3 mmol/L (3.6-5.0); SODIUM 144 mmol/L (132-148); TOTAL PROTEIN 6.9 g/dL (5.8-8.3)
[2017-02-04] MEDS: Insulin Reg-LOW-Coverage SC SCH ×4 (08:00→21:47)
[2017-02-04] MEDS: Potassium Chloride 20 mEq/15 ml LIQ UD PO SCH (08:01)
--- NOTE | 2017-02-04 08:33 | PN ---
REASON FOR CONSULTATION: Followup CVA, left-sided weakness, dysphagia, n.p.o., status post PEG tube. SUBJECTIVE: The patient denies any chest pain, shortness of breath or any palpitation. Son is at bedside. OBJECTIVE: GENERAL: The patient is lying flat in the bed, not in apparent distress, NG tube in position. VITAL SIGNS: Heart rate 92, temperature afebrile, blood pressure 142/89. HEENT: PERRLA intact. Extraocular muscles intact. NECK: Supple. No carotid bruit. No thyromegaly. CHEST: Clear to auscultation. HEART: S1 and S2, regular. ABDOMEN: Soft. EXTREMITIES: Clubbing and cyanosis negative. LABORATORY DATA: Blood workup as follows: WBC 14.9, hemoglobin 15.9, hematocrit 45.9, and platelet count 137. Chemistry shows sodium 142, potassium 3.7, chloride 110, carbon dioxide 23, anion gap of 13, BUN 22, creatinine 0.9. Brain MRI repeated today that shows no masses, no edema, moderate atrophy, large infract involving the medial surface of the right frontal and parietal, occipital lobe distribution of the anterior cerebral artery, has significant increase in size. No significant hemorrhage component noted. IMPRESSION: A 81-year-old male with past medical history significant for chronic atrial fibrillation, noncompliance of the medication with acute CVA. Initially thought that radha-infarct hemorrhage, but repeat CAT scan/MRI shows no hemorrhage, but large infract. Discussed with Dr. Jonathan Cuevas risks, benefits ratio. We will start anticoagulation. Though risk of radha-infarct hemorrhage in the early has always been there, but since the patient has AFib, so it can give a massive infract again. Discussed with the son, Zan, and benefit and risk explained to him. Benefit outweighs the risk so we will start Eliquis and also we will discuss with Dr. Price. If the patient is going for PEG placement, then we will start Lovenox, waiting for Dr. Price to call back. Otherwise, if the patient is not going PEG now, then we will start 2.5 of Eliquis, followed by . If stable, then back to regular 5 mg. Because the patient has a normal skeleton the body mass index is 29 kg per m2. The patient had echocardiography done day before yesterday that shows ejection fraction 55% to 60%, moderate dilated left atrium, trace aortic regurgitation, trace mitral regurgitation, mild tricuspid regurgitation, RV systolic pressure of 47. Once we start anticoagulation, we will discontinue aspirin and supplement potassium. We will continue to follow. ADDENDUM Discussed with Dr. Price, the patient is scheduled for PEG tomorrow, so we will hold anticoagulation so the patient does not get any problem. After the PEG, we will start Lovenox, and if the patient , we will switch over to Eliquis and we will discontinue aspirin and Eliquis will be started. I will hold Lovenox for anticipating the PEG for tomorrow, otherwise they cannot do the PEG tomorrow. Thank you Dr. Price for providing me the opportunity in taking care of the patient. Huber Valera MD
[2017-02-04] MEDS ORDERED: Enoxaparin 60 mg Syringe SC SCH (10:00)
[2017-02-04] MEDS: Potassium & Sodium Phosphate PO SCH ×2 (10:28→18:24)
[2017-02-04] MEDS: Thiamine 100 mg/ml Inj IM SCH (10:28)
[2017-02-04] MEDS: Nystatin 100,000 Units/gm Topical Pow(15 gm) TOP SCH ×2 (10:30→18:27)
--- NOTE | 2017-02-04 11:41 | PN ---
DATE: 02/03/2017 SUBJECTIVE: The patient is going for repeat MRI in the morning. He seems comfortable. He is in no respiratory distress. He opened his eyes, he responses to calling his name and still seems sleepy and weak, otherwise stable. PHYSICAL EXAMINATION: VITAL SIGNS: As follows; temperature 97.5, heart rate 103, blood pressure 149/104, respiratory rate of 22, saturation 98%. HEENT: Head and neck normal. No JVD, no thyromegaly. CHEST: Clear, good air entry. CARDIAC: First sound and second sound normal. ABDOMEN: Soft, obese, nontender. EXTREMITIES: There is no edema. NEUROLOGIC: Left hemiplegia. LABORATORY DATA: Laboratory study as follows; white count is 14.9, hemoglobin 16.1, hematocrit 45.9, and platelets is 137. Chemistry shows sodium 142, potassium 3.7, chloride 110, bicarb 23, BUN 22, creatinine 0.9, blood sugar 160, liver function test is normal. ProBNP is 4660. IMPRESSION: Acute cerebrovascular accident. PLAN: 1. Continue current management, aspirin. The patient is not candidate for TPA at this time or any interventions as per the discussion by neurologist. We will continue current treatment. The patient will need also full anticoagulation for AFib in addition to the current antiplatelet therapy. Plan to go for PEG tube tomorrow for now and I will follow up clinically. The patient also need acute rehab, discussed with case manager specialist for [facility]. 2. Hypertension. Continue current blood pressure medicine. Followup with nitrogen operator. 3. Leukocytosis. CT of the chest is negative, no infiltrate, CT of the abdomen and pelvis is negative. Urine and blood culture is negative. Continue current management. Follow up with ID consult. 4. Chronic atrial fibrillation, coronary artery disease, continue current management. The patient is currently on beta-blockers. Follow up with the cardiology nurse. He is getting 50 mg b.i.d., we may need to increase that and monitor his blood pressure, continue Diovan as per the cardiology nurse, currently on hold. Plan to continue current treatment and we will follow up clinically. 5. The patient also has history of dementia, on Aricept. We will continue on Aricept with mild cognitive impairment and mild dementia. We will continue Aricept for now. Continue current treatment. Lowell Mcmahon MD [facility] # [id number]
--- NOTE | 2017-02-04 11:54 | RAD ---
HISTORY: Pneumonia/congestive heart failure. Tachycardia COMPARISON: No prior. FINDINGS: LUNGS: No active pulmonary disease. PLEURA: No significant pleural effusion identified, no pneumothorax apparent. CARDIOVASCULAR: Cardiomegaly. No evidence of acute, significant cardiovascular disease. OSSEOUS STRUCTURES: No significant abnormalities. VISUALIZED UPPER ABDOMEN: Nasogastric tube in satisfactory position in the stomach. OTHER FINDINGS: None. IMPRESSION: No significant interval change compared to the prior examination(s).
[2017-02-04] MEDS ORDERED: Propofol 10 mg/ml Inj (20 ML) ONE (13:58)
[2017-02-04] MEDS ORDERED: Etomidate 20 mg/10ml Inj IV ONE (13:58)
[2017-02-04] MEDS ORDERED: Sodium Chloride 0.9% 1,000 ML IV SCH (16:00)
--- NOTE | 2017-02-04 17:18 | PN ---
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 SUBJECTIVE: The patient seen and examined at bedside. No acute events overnight, but has dysarthria and left-sided weakness still. He is slightly more awake and today he was tachycardic while going for the possible PEG tube placement, therefore procedure was put on hold. His repeat MRI showed a large infarct in the medial surface of the right frontal, parietal and occipital lobes in a distribution of the anterior cerebral artery, but the size of this increased from his initial, but no hemorrhagic component at all. Talked to cardiology Dr. Valera in regards to place him back on possibly Eliquis, in addition to his baby aspirin given the fact that he has history of atrial fibrillation and it can be risk for embolic strokes. The benefit of anticoagulation in a patient with known atrial fibrillation and prior stroke outweighs the risk of bleedings from anticoagulation, awaiting PEG tube placement. I recommend continuing with his underlying BiPAP. PAST MEDICAL HISTORY: History of atrial fibrillation was on Eliquis, dyslipidemia, poorly controlled hypertension, diabetes, cognitive impairment. REVIEW OF SYSTEMS: A 14-point review of systems is negative except as per the HPI. FAMILY HISTORY: No contributory. ALLERGIES: NO KNOWN DRUG ALLERGIES. SOCIAL HISTORY: No illicit drug use, smoking, or EtOH abuse. MEDICATIONS: Reviewed by nurse practitioner per reconciliation sheet. PHYSICAL EXAMINATION: VITAL SIGNS: Temperature 99, pulse rate of 82, blood pressure 151/97, respiration rate of 18, oxygen saturation 97% via 2 L nasal cannula of oxygen. GENERAL: The patient is lethargic, but follows simple commands. Tracks with both eyes. Cranial nerves II through XII intact except for left facial droop and has dysarthria. Motor exam, has left-sided hemiplegia and the right side is intact. Has left sided neglect. Sensory exam, has left-sided neglect, but withdraws to localized to noxious stimulus. DTRs 1+ throughout and absent at the ankles. Coordination and gait deferred for now. LABORATORY DATA: Sodium is 144, potassium 4.3, chloride 110, carbon dioxide 23, BUN of 28, creatinine 1.0, random glucose 220. B12 was 927. ASSESSMENT AND PLAN: 1. This is a 81-year-old Albanian-speaking man with past medical history of atrial fibrillation and Eliquis, dyslipidemia, poorly controlled hypertension, type 2 diabetes mellitus, history of dementia, on Aricept, presented to the hospital with acute onset of left-sided weakness with slurred speech upon awakening which was reported by the family. His was later determined to have an acute right MCA and FLAKO territory infarction on the MRI and therefore he was not tPA candidate on clear onset of stroke. His large right FLAKO territory infarct is secondary to diffuse atherosclerosis secondary to poorly controlled hypertension, underlying dyslipidemia and diabetes. His repeat MRI showed increased size of the right FLAKO territory stroke, but no hemorrhagic component. At this time, given his history of atrial fibrillation, we will recommend for cardiology to place him on low dose of Eliquis. Given the risks and benefits, the benefits outweigh the risk given the atrial fibrillation in the immobile patient can cause embolic strokes. 2. I will recommend for him to be on PEG placement for nutrition to the brain. 3. Continue aspirin 81 mg p.o. daily. 4. Atorvastatin 40 mg p.o. daily. 5. Keep his blood pressures between 130 to 140. 6. Will need acute physical therapy and occupational therapy and speech therapy in possibly [facility] rehab. At this time, work with case management to get excessive approval. 7. Monitor electrolytes and correct accordingly and continue current present medical management. Follow with cardiology. Thank you for this followup. Jonathan Cuevas MD
--- NOTE | 2017-02-04 17:45 | CP.PCM.PN ---
Subjective - Date & Time of Evaluation Date of Evaluation: 02/04/17 Time of Evaluation: 09:25 - Subjective Subjective: Patient has urinary incontinence, still with some cough but a little better, no fevers overnight. Objective - Vital Signs/Intake and Output Vital Signs (last 24 hours): Temp Pulse Resp BP Pulse Ox 98.6 F 84 19 132/86 97 02/04/17 17:41 02/04/17 17:41 02/04/17 17:41 02/04/17 17:41 02/04/17 15:27 Intake and Output: 02/04/17 02/04/17 06:59 18:59 Intake Total 1350 Balance 1350 - Medications Medications: Current Medications Aspirin (Aspirin Chewable) 81 mg PO DAILY [facility] Last Admin: 02/04/17 10:28 Dose: 81 mg Atorvastatin Calcium (Lipitor) 10 mg PO DIN [facility] Last Admin: 02/03/17 17:52 Dose: 10 mg Clonidine HCl (Catapres-Tts3 0.3 Mg/24 Hr) 1 patch TD Q7D@1000 [facility] Donepezil HCl (Aricept) 10 mg PO HS [facility] Last Admin: 02/03/17 21:09 Dose: 10 mg Ezetimibe (Zetia) 10 mg PO DAILY [facility] Last Admin: 02/04/17 10:28 Dose: 10 mg Hydralazine HCl (Apresoline) 10 mg IVP Q6 PRN PRN Reason: Systolic Blood Pressure Last Admin: 01/30/17 23:15 Dose: 10 mg Doxycycline Hyclate 100 mg/ (Sodium Chloride) 100 mls @ 100 mls/hr IVPB Q12 [facility] PRN Reason: Protocol Last Admin: 02/04/17 10:26 Dose: 100 mls/hr Potassium Chloride 20 meq/ (Sodium Chloride) 1,010 mls @ 40 mls/hr IV .Q24H [facility] Last Admin: 02/03/17 14:21 Dose: 40 mls/hr Sodium Chloride (Sodium Chloride 0.9%) 1,000 mls @ 100 mls/hr IV .Q10H [facility] diltiaZEM IVPB 100mg in NS (Cardizem 100mg In Ns) 100 mls @ 5 mls/hr IV .Q20H PRN; Protocol; 5 MG/HR PRN Reason: TITRATE PER MD ORDER Sodium Chloride (Sodium Chloride 0.9%) 1,000 mls @ 75 mls/hr IV .[id number] [facility] Stop: 02/04/17 18:01 Insulin Human Regular (Humulin R Low) 0 units SC ACHS [facility] PRN Reason: Protocol Last Admin: 02/04/17 13:36 Dose: 1 units Metoprolol Tartrate (Lopressor) 5 mg IVP Q6H [facility] Last Admin: 02/01/17 07:20 Dose: 5 mg Metoprolol Tartrate (Lopressor) 50 mg PO BID [facility] Last Admin: 02/04/17 10:42 Dose: 50 mg Nystatin (Nystop Topical Powder) 0 gm TOP BID [facility] Last Admin: 02/04/17 10:30 Dose: 1 applic Potassium Chloride (Potassium Chloride Oral Soln) 20 meq PO 0800 [facility] Last Admin: 02/04/17 08:01 Dose: 20 meq Potassium Phos/Sodium Phos (Neutra-Phos) 1 pkt PO BID [facility] Stop: 02/04/17 23:00 Last Admin: 02/04/17 10:28 Dose: 1 pkt Valsartan (Diovan) 320 mg PO DAILY [facility] Last Admin: 01/31/17 09:40 Dose: Not Given - Labs Labs: 02/04/17 06:45 02/04/17 06:45 PT 10.9 Seconds (9.9-11.8) 01/29/17 10:45 INR 1.01 (0.93-1.08) 01/29/17 10:45 APTT 27.3 Seconds (23.7-30.8) 01/29/17 10:45 - Constitutional Appears: Non-toxic, No Acute Distress - Head Exam Head Exam: NORMAL INSPECTION - ENT Exam ENT Exam: Mucous Membranes Moist - Neck Exam Neck Exam: absent: Meningismus - Respiratory Exam Respiratory Exam: Decreased Breath Sounds - Cardiovascular Exam Cardiovascular Exam: +S1, +S2 - GI/Abdominal Exam GI & Abdominal Exam: Soft. absent: Tenderness Assessment and Plan - Assessment and Plan (Free Text) Plan: Assessment consider atypical healthcare-associated pneumonia Staph lugdunensis in urine cx, consider asymptomatic bacteriuria, in this patient with urinary incontinence acute CVA (ischemic, left frontal) HTN DM CAD dyslipidemia S/P hernia repair Plan continue Doxycycline (we have kept it IV because the patient has swallowing issues) - day 5 of 4-7 days cultures have been negative, PCT is only 0.2; CXR shows chronic interstitial markings but no lobar consolidation will repeat urine cx will monitor clinically
[2017-02-04] MEDS: Potassium Chloride 20 MEQ in Sodium Chloride 0.45% 1,000 ML IV SCH (18:55)
--- NOTE | 2017-02-04 20:33 | PN ---
DATE: 02/04/2017 SUBJECTIVE: The patient is seen lying in bed. He is awake, he is alert. He is not really participating in any conversation. He appears comfortable. PHYSICAL EXAMINATION: GENERAL: Elderly male lying in bed. VITAL SIGNS: Blood pressure 127/90, heart rate 85, respiratory rate 20, and temperature 97.6. HEENT: Normocephalic and atraumatic. NECK: Supple, no JVD. LUNGS: Bilateral equal air entry, bilateral rhonchi. No rales. CARDIAC: S1 and S2. Regular rate and rhythm. No murmur. No rub. ABDOMEN: Obese, soft, nondistended and nontender. Bowel sounds present. EXTREMITIES: No lower extremity edema. INTAKE AND OUTPUT: 1350/not charted. LABORATORY DATA: WBC 12.8, hemoglobin 16, hematocrit 47 and platelets 120. Sodium 144, potassium 4.3, chloride 110, CO2 of 23, BUN 28, creatinine 1.0, glucose 220, calcium 9.2, and albumin 3.4. Urine culture: Staphylococcus lugdunensis. Chest x-ray: No active pulmonary disease. No significant pleural effusion. MEDICATIONS: Hydralazine, Aricept, aspirin, Cardizem, clonidine patch #3, valsartan on hold, doxycycline 100 q. 12, and insulin. ASSESSMENT: 1. Acute cerebrovascular accident, left hemiparesis. 2. Hypertension. 3. Hypernatremia. 4. Dehydration. PLAN: 1. Continue hypotonic IV fluids. 2. Continue antibiotics for staph UTI. 3. Continue tube feedings. 4. Continue free water via NG tube. Amy Saez MD
--- NOTE | 2017-02-04 22:55 | PN ---
DATE: 02/04/2017 PULMONARY PROGRESS NOTE REFERRING PHYSICIAN: Dr. Mcmahon. SUBJECTIVE: The patient lying in the bed at 45 degrees. Night was unremarkable. More awake and alert. No cough. No sputum production. No nausea. No vomiting or diarrhea. No leg pain or leg swelling. OBJECTIVE: VITAL SIGNS: Temperature is 98, heart is 84, respiratory rate is 20, blood pressure 132/86, pulse is 98% on room air. HEENT: Moist mucous membranes. Crowded airway. Mallampati score is IV. NECK: Supple. No JVD. LUNGS: Fair air flow with few rhonchi. HEART: S1 and S2. ABDOMEN: Soft and nontender. EXTREMITIES: There is no edema. NEUROLOGIC: Awake, alert, not much verbal. MEDICATIONS: He is on hydralazine 10 mg q.6 hours p.r.n., Aricept 10 mg at bedtime, aspirin 81 mg daily, diltiazem, IV drip, Catapres patch q.7 days, Diovan 320 mg daily, doxycycline 100 mg twice a day, insulin coverage, Lipitor 10 mg daily, metoprolol tartarate 5 mg IV q.6 hours, metoprolol tartrate also 50 mg twice a day, Neutra-Phos one pack twice a day, potassium supplement, IV fluids 100 mL per hour, Zetia 10 mg daily and Zoloft 25 mg daily. LABORATORY DATA: Shows hemoglobin 16.2, hematocrit 47.1, WBC 12.8 and platelet is 120. Sodium 144, potassium 4.3, chloride 110, bicarbonate 23, BUN 28, creatinine 1.0, glucose 220, calcium is 9.2, AST is 25, ALT 27, alkaline phosphatase 75 and albumin 3.4. Chest x-ray done today shows no significant interval changes compared to prior examination. No active pulmonary disease. IMPRESSION AND PLAN: Ischemic stroke, hypertension, diabetes, atrial fibrillation, may have sleep apnea syndrome, oropharyngeal dysphagia on modified diet. Pulmonary point of view, keep head 45 degrees, bilevel positive airway pressure at night time, gastric prophylaxis, deep venous thrombosis prophylaxis. Physical therapy, out of bed to chair. Thank you and we will follow with you. Huber Lang MD
--- NOTE | 2017-02-04 23:18 | CP.PCM.PN ---
Subjective - Date & Time of Evaluation Date of Evaluation: 02/04/17 Time of Evaluation: 23:17 - Subjective Subjective: Patient was seen at bed side.Because his BP was 176/113. Opens eyes and stares . Does not talk. As per son, who is at bedside, patient has no complaints. States that he was talking earlier.He is not in mood. 81 year old male was admitted with right sided hemiparesis, was not able tell what happened to him. PMH:HTN,Atrial fibrillation,hernia repair. Objective - Vital Signs/Intake and Output Vital Signs (last 24 hours): Temp Pulse Resp BP Pulse Ox 98.6 F 84 19 132/86 97 02/04/17 17:41 02/04/17 18:26 02/04/17 17:41 02/04/17 18:26 02/04/17 15:27 Intake and Output: 02/04/17 02/05/17 18:59 06:59 Intake Total 1350 Balance 1350 - Medications Medications: Current Medications Aspirin (Aspirin Chewable) 81 mg PO DAILY [facility] Last Admin: 02/04/17 10:28 Dose: 81 mg Atorvastatin Calcium (Lipitor) 10 mg PO DIN [facility] Last Admin: 02/04/17 18:24 Dose: 10 mg Clonidine HCl (Catapres-Tts3 0.3 Mg/24 Hr) 1 patch TD Q7D@1000 [facility] Donepezil HCl (Aricept) 10 mg PO HS [facility] Last Admin: 02/04/17 22:08 Dose: Not Given Ezetimibe (Zetia) 10 mg PO DAILY [facility] Last Admin: 02/04/17 10:28 Dose: 10 mg Hydralazine HCl (Apresoline) 10 mg IVP Q6 PRN PRN Reason: Systolic Blood Pressure Last Admin: 01/30/17 23:15 Dose: 10 mg Doxycycline Hyclate 100 mg/ (Sodium Chloride) 100 mls @ 100 mls/hr IVPB Q12 [facility] PRN Reason: Protocol Last Admin: 02/04/17 21:57 Dose: 100 mls/hr Potassium Chloride 20 meq/ (Sodium Chloride) 1,010 mls @ 40 mls/hr IV .Q24H [facility] Last Admin: 02/04/17 18:55 Dose: 40 mls/hr Sodium Chloride (Sodium Chloride 0.9%) 1,000 mls @ 100 mls/hr IV .Q10H [facility] diltiaZEM IVPB 100mg in NS (Cardizem 100mg In Ns) 100 mls @ 5 mls/hr IV .Q20H PRN; Protocol; 5 MG/HR PRN Reason: TITRATE PER MD ORDER Insulin Human Regular (Humulin R Low) 0 units SC ACHS [facility] PRN Reason: Protocol Last Admin: 02/04/17 21:47 Dose: Not Given Metoprolol Tartrate (Lopressor) 5 mg IVP Q6H [facility] Last Admin: 02/01/17 07:20 Dose: 5 mg Metoprolol Tartrate (Lopressor) 50 mg PO BID [facility] Last Admin: 02/04/17 18:26 Dose: 50 mg Nystatin (Nystop Topical Powder) 0 gm TOP BID [facility] Last Admin: 02/04/17 18:27 Dose: 1 applic Potassium Chloride (Potassium Chloride Oral Soln) 20 meq PO 0800 [facility] Last Admin: 02/04/17 08:01 Dose: 20 meq Sertraline HCl (Zoloft) 25 mg PO DAILY [facility] Valsartan (Diovan) 320 mg PO DAILY [facility] Last Admin: 01/31/17 09:40 Dose: Not Given - Labs Labs: 02/04/17 06:45 02/04/17 06:45 PT 10.9 Seconds (9.9-11.8) 01/29/17 10:45 INR 1.01 (0.93-1.08) 01/29/17 10:45 APTT 27.3 Seconds (23.7-30.8) 01/29/17 10:45 Assessment and Plan - Assessment and Plan (Free Text) Assessment: Elevated blood pressure reading. HTN. Atrial fibrillation. Hernia repair history. Plan: Hydralazine 10 mg IV now. Continue present management.
--- NOTE | 2017-02-05 01:46 | PN ---
SUBJECTIVE: The patient is a 81-year-old [place]ian male who has had acute infarct of his right anterior cerebral artery affecting his right frontal lobe and parietal lobe. The patient today had a gastrotomy tube placed. The patient spoke with patient and also spoke with patient's son at bedside. The patient is more awake, alert; however, has difficulty answering questions; however, the patient does not answer questions or appear to follow any commands. The patient currently appears in no distress. The patient has a leukocytosis. The patient has a history of hypertension, chronic atrial fibrillation, coronary artery disease. The patient's current medications are ordered includes Zetia, Diovan, Aricept, Humulin insulin, Lipitor, Lopressor IV, chewable aspirin, Vibramycin IV, Neutra-Phos and potassium. The patient is also receiving Cardizem and normal saline. PHYSICAL EXAMINATION: VITAL SIGNS: Blood pressure 132/86, pulse is 84, he is afebrile, respiration is 18 per minute. LABORATORY DATA: His CBC: his white count 12,800, hemoglobin of 16.2 and a platelet count of 120,000. The patient's fasting glucose is 185. His abnormalities included chloride of 110, BUN 28, creatinine 1.0. Rest of profile was within normal range. IMPRESSION: The patient has acute right frontoparietal infarct. He has a left hemiplegia. He probably feels depressed. PLAN: I suggests medicines can be taken through PEG tube. He will be started on Zoloft 25 mg twice a day for depression. We will continue to monitor mental status. David Sumner MD
[2017-02-05] MEDS: diltiaZEM IVPB 100mg in NS 100 ML IV PRN ×2 (02:49→21:18)
[2017-02-05] MEDS: Insulin Reg-LOW-Coverage SC SCH ×3 (08:50→20:17)
[2017-02-05] MEDS: Potassium Chloride 20 mEq/15 ml LIQ UD PO SCH (09:01)
[2017-02-05] MEDS: levoFLOXacin 500 MG TAB PO SCH (12:09)
[2017-02-05] MEDS: diltiaZEM 240 mg/24 Hours CD Cap PO SCH (12:11)
[2017-02-05] MEDS: Nystatin 100,000 Units/gm Topical Pow(15 gm) TOP SCH ×2 (12:15→18:00)
--- NOTE | 2017-02-05 12:59 | CP.PCM.PN ---
Subjective - Date & Time of Evaluation Date of Evaluation: 02/05/17 Time of Evaluation: 10:25 - Subjective Subjective: Comfortable in bed, afebrile, not in distress. Objective - Vital Signs/Intake and Output Vital Signs (last 24 hours): Temp Pulse Resp BP Pulse Ox 98.6 F 84 19 132/86 97 02/04/17 17:41 02/04/17 17:41 02/04/17 17:41 02/04/17 17:41 02/04/17 15:27 Intake and Output: 02/04/17 02/04/17 06:59 18:59 Intake Total 1350 Balance 1350 - Medications Medications: Current Medications Aspirin (Aspirin Chewable) 81 mg PO DAILY [facility] Last Admin: 02/04/17 10:28 Dose: 81 mg Atorvastatin Calcium (Lipitor) 10 mg PO DIN [facility] Last Admin: 02/03/17 17:52 Dose: 10 mg Clonidine HCl (Catapres-Tts3 0.3 Mg/24 Hr) 1 patch TD Q7D@1000 [facility] Donepezil HCl (Aricept) 10 mg PO HS [facility] Last Admin: 02/03/17 21:09 Dose: 10 mg Ezetimibe (Zetia) 10 mg PO DAILY [facility] Last Admin: 02/04/17 10:28 Dose: 10 mg Hydralazine HCl (Apresoline) 10 mg IVP Q6 PRN PRN Reason: Systolic Blood Pressure Last Admin: 01/30/17 23:15 Dose: 10 mg Doxycycline Hyclate 100 mg/ (Sodium Chloride) 100 mls @ 100 mls/hr IVPB Q12 [facility] PRN Reason: Protocol Last Admin: 02/04/17 10:26 Dose: 100 mls/hr Potassium Chloride 20 meq/ (Sodium Chloride) 1,010 mls @ 40 mls/hr IV .Q24H [facility] Last Admin: 02/03/17 14:21 Dose: 40 mls/hr Sodium Chloride (Sodium Chloride 0.9%) 1,000 mls @ 100 mls/hr IV .Q10H [facility] diltiaZEM IVPB 100mg in NS (Cardizem 100mg In Ns) 100 mls @ 5 mls/hr IV .Q20H PRN; Protocol; 5 MG/HR PRN Reason: TITRATE PER MD ORDER Sodium Chloride (Sodium Chloride 0.9%) 1,000 mls @ 75 mls/hr IV .[id number] [facility] Stop: 02/04/17 18:01 Insulin Human Regular (Humulin R Low) 0 units SC ACHS [facility] PRN Reason: Protocol Last Admin: 02/04/17 13:36 Dose: 1 units Metoprolol Tartrate (Lopressor) 5 mg IVP Q6H [facility] Last Admin: 02/01/17 07:20 Dose: 5 mg Metoprolol Tartrate (Lopressor) 50 mg PO BID [facility] Last Admin: 02/04/17 10:42 Dose: 50 mg Nystatin (Nystop Topical Powder) 0 gm TOP BID [facility] Last Admin: 02/04/17 10:30 Dose: 1 applic Potassium Chloride (Potassium Chloride Oral Soln) 20 meq PO 0800 [facility] Last Admin: 02/04/17 08:01 Dose: 20 meq Potassium Phos/Sodium Phos (Neutra-Phos) 1 pkt PO BID [facility] Stop: 02/04/17 23:00 Last Admin: 02/04/17 10:28 Dose: 1 pkt Valsartan (Diovan) 320 mg PO DAILY [facility] Last Admin: 01/31/17 09:40 Dose: Not Given - Labs Labs: 02/04/17 06:45 02/04/17 06:45 PT 10.9 Seconds (9.9-11.8) 01/29/17 10:45 INR 1.01 (0.93-1.08) 01/29/17 10:45 APTT 27.3 Seconds (23.7-30.8) 01/29/17 10:45 - Constitutional Appears: Non-toxic, No Acute Distress - Head Exam Head Exam: NORMAL INSPECTION - ENT Exam ENT Exam: Mucous Membranes Moist - Neck Exam Neck Exam: absent: Lymphadenopathy, Meningismus - Respiratory Exam Respiratory Exam: Decreased Breath Sounds - Cardiovascular Exam Cardiovascular Exam: +S1, +S2 - GI/Abdominal Exam GI & Abdominal Exam: Soft. absent: Tenderness Assessment and Plan - Assessment and Plan (Free Text) Plan: Assessment consider atypical healthcare-associated pneumonia, clinically improving Staph lugdunensis in urine cx, consider asymptomatic bacteriuria, in this patient with urinary incontinence - repeat urine cx are negative without specific treatment acute CVA (ischemic, left frontal) HTN DM CAD dyslipidemia S/P hernia repair Plan continue Doxycycline (we have kept it IV because the patient has swallowing issues) - day 6 of 4-7 days cultures have been negative, PCT is only 0.2; CXR shows chronic interstitial markings but no lobar consolidation repeat urine cx are negative will continue to monitor clinically
--- NOTE | 2017-02-05 13:41 | PN ---
DATE: 02/05/2017 SUBJECTIVE: The patient is seen, lying in bed. Today, he is resting? not really responding. . PHYSICAL EXAMINATION: GENERAL: Elderly male lying in bed. VITAL SIGNS: Blood pressure 134/84, heart rate 97, respiratory rate 21, and temperature 99.1, T-max 99.1. HEENT: Normocephalic, atraumatic. NECK: Supple, no JVD. LUNGS: Bilateral equal air entry, no rales. CARDIAC: S1 and S2, regular rate and rhythm, no murmur, no rub. ABDOMEN: Soft, distended, nontender, bowel sounds present. EXTREMITIES: No lower extremity edema. INTAKE AND OUTPUT: 645/400 LABORATORY DATA: No new labs. CURRENT MEDICATIONS: Apresoline, Aricept, aspirin, Cardizem CD, Catapres patch, Diovan on hold, Flomax, insulin, Levaquin, Lipitor, Lopressor, Pepcid, half normal saline with potassium, Protonix, Zetia and Zoloft. ASSESSMENT: 1. Acute cerebrovascular accident with left hemiparesis. 2. Dysphagia. 3. Hypernatremia. 4. Hypertension. 5. Hypokalemia, resolved. PLAN: 1. Discontinue IV fluids. 2. Continue antihypertensives. 3. Start PEG feeds when cleared. 4. Free water via PEG. 5. Discharge planing. Amy Saez MD
--- NOTE | 2017-02-05 18:21 | PN ---
SUBJECTIVE: He is lying in the bed with the head at 45 degrees. Family is on the bedside. Night was unremarkable. Much more awake and alert. He wants to drink water. No nausea and no vomiting. No abdominal pain. He had an G-tube placed. No leg pain or leg swelling. OBJECTIVE: GENERAL: In no acute distress. VITAL SIGNS: Temperature is 98, heart is 72, respiratory rate is 20, blood pressure 128/52, pulse ox 98% on room air. HEENT: Moist mucous membranes. Crowded airway. NECK: Supple. No JVD. LUNGS: Fair air flow with few rhonchi. HEART: S1 and S2. ABDOMEN: Soft, nontender. No organomegaly. G-tube is . EXTREMITIES: There is no edema. NEUROLOGIC: Awake and alert, does follows simple commands. MEDICATIONS: He is on hydralazine 10 mg q. 6 hours p.r.n., Aricept 10 mg daily, aspirin 81 mg daily, Cardizem CD 240 mg daily, Catapres patch 0.3 mg q. 7 days, Diovan 320 mg daily, Flomax 0.4 mg daily, insulin coverage, Levaquin 500 mg daily, Lipitor 10 mg daily, metoprolol tartrate 5 mg q. 6 hours, which is on hold and metoprolol tartrate 50 mg twice a day, Pepcid 20 mg twice a day, potassium supplement, Protonix 40 mg daily, IV fluids, also getting vitamin B12 100 mcg p.o. daily, Zetia 10 mg daily and Zoloft 25 mg daily. LABORATORY DATA: Shows blood sugar this morning at 203. IMPRESSION AND PLAN: Ischemic stroke, hypertension, diabetes, atrial fibrillation, feeding difficulty requiring G-tube, sleep apnea syndrome. Spoke to patient's son on the bedside. All the questions were answered. Keep the head elevated at 45 degrees. Bronchodilator. Encouraged CPAP use. Gastric prophylaxis. DVT prophylaxis. High risk for thromboembolic disease. We will place him on DVT prophylaxis and at one point may be full anticoagulation when cleared by neurology. Thank you and we will follow with you. Huber Lang MD
[2017-02-05] MEDS: Sodium Chloride 0.9% 1,000 ML IV SCH (23:08)
--- NOTE | 2017-02-06 02:19 | PN ---
DATE: 02/05/2017 SUBJECTIVE: This patient was seen and evaluated earlier today. The patient's family was at the bedside. The patient has been started on G-tube feeding. PHYSICAL EXAMINATION: VITAL SIGNS: On examination, the patient is afebrile, pulse 79, blood pressure 149/88. HEENT: Atraumatic and anicteric. Facial droop present. NECK: Supple. HEART: S1 and S2 heard. LUNGS: Bilateral air entry present. ABDOMEN: Soft, there is no tenderness. EXTREMITIES: The patient has left-sided weakness present, left hemiplegia. LABORATORY DATA: No recent labs. IMPRESSION AND PLAN: This is a 81-year-old patient; status post cerebrovascular accident; atrial fibrillation, on Eliquis; history of status post neurogenic dysphagia, the patient is status post feeding tube placement, on tube feeding, on Glucerna 1.2 at 40 mL per hour. Other comorbidities include diabetes mellitus, atrial fibrillation, hypertension, dyslipidemia. The patient also has duodenal gastric ulceration. The patient is on Pepcid twice a day and also pantoprazole 1 time a day. We will change the Pepcid to nighttime dose and continue the Protonix in a.m. and follow up of the hemoglobin and hematocrit closely. Thank you very much for allowing me to participate in the care of the patient. Lia Day MD
[2017-02-06 06:39] LABS: HEMATOCRIT 43.3 % (42.0-52.0); MEAN CELL VOLUME 93.9 fl (80.0-105.0); MEAN CORPUSCULAR HEMOGLOBIN 31.9 pg (25.0-35.0); MEAN CORPUSCULAR HGB CONC 33.9 g/dl (31.0-37.0); MEAN PLATELET VOLUME 12.7 fl (7.0-11.0); RED CELL DISTRIBUTION WIDTH 13.3 % (11.5-14.5); WHITE BLOOD COUNT 12.7 10^3/ul (4.5-11.0)
[2017-02-06] MEDS: levoFLOXacin 500 MG TAB PO SCH (09:39)
[2017-02-06] MEDS: diltiaZEM 240 mg/24 Hours CD Cap PO SCH (09:39)
[2017-02-06] MEDS: Insulin Reg-LOW-Coverage SC SCH ×5 (09:41→21:54)
[2017-02-06] MEDS: Potassium Chloride 20 mEq/15 ml LIQ UD PO SCH (09:42)
[2017-02-06] MEDS: Sodium Chloride 0.9% 1,000 ML IV SCH ×4 (09:45→21:58)
[2017-02-06] MEDS: Nystatin 100,000 Units/gm Topical Pow(15 gm) TOP SCH ×2 (10:20→18:29)
--- NOTE | 2017-02-06 13:38 | CP.PCM.PN ---
Subjective - Date & Time of Evaluation Date of Evaluation: 02/06/17 Time of Evaluation: 10:00 - Subjective Subjective: Patient now has G-tube placed. No fevers overnight. Objective - Vital Signs/Intake and Output Vital Signs (last 24 hours): Temp Pulse Resp BP Pulse Ox 99.1 F 97 H 21 154/84 H 97 02/05/17 06:32 02/05/17 12:11 02/05/17 06:32 02/05/17 12:11 02/05/17 06:32 Intake and Output: 02/05/17 02/05/17 06:59 18:59 Intake Total 645 Output Total 400 Balance 245 - Medications Medications: Current Medications Aspirin (Aspirin Chewable) 81 mg PO DAILY [facility] Last Admin: 02/05/17 12:09 Dose: 81 mg Atorvastatin Calcium (Lipitor) 10 mg PO DIN [facility] Last Admin: 02/04/17 18:24 Dose: 10 mg Clonidine HCl (Catapres-Tts3 0.3 Mg/24 Hr) 1 patch TD Q7D@1000 [facility] Cyanocobalamin (Vitamin B12 100 Mcg Tab) 100 mcg PO DAILY [facility] Last Admin: 02/05/17 12:11 Dose: 100 mcg Diltiazem HCl (Cardizem Cd) 240 mg PO DAILY [facility] Last Admin: 02/05/17 12:11 Dose: 240 mg Donepezil HCl (Aricept) 10 mg PO HS [facility] Last Admin: 02/04/17 22:08 Dose: Not Given Ezetimibe (Zetia) 10 mg PO DAILY [facility] Last Admin: 02/05/17 12:13 Dose: 10 mg Famotidine (Pepcid) 20 mg PO 1000,2200 [facility] Last Admin: 02/05/17 12:09 Dose: 20 mg Hydralazine HCl (Apresoline) 10 mg IVP Q6 PRN PRN Reason: Systolic Blood Pressure Last Admin: 02/04/17 23:21 Dose: 10 mg Sodium Chloride (Sodium Chloride 0.9%) 1,000 mls @ 100 mls/hr IV .Q10H [facility] diltiaZEM IVPB 100mg in NS (Cardizem 100mg In Ns) 100 mls @ 5 mls/hr IV .Q20H PRN; Protocol; 5 MG/HR PRN Reason: TITRATE PER MD ORDER Last Admin: 02/05/17 02:49 Dose: 5 mg/hr, 5 mls/hr Insulin Human Regular (Humulin R Low) 0 units SC ACHS [facility] PRN Reason: Protocol Last Admin: 02/05/17 12:53 Dose: 2 units Levofloxacin (Levaquin) 500 mg PO DAILY [facility] Last Admin: 02/05/17 12:09 Dose: 500 mg Metoprolol Tartrate (Lopressor) 5 mg IVP Q6H [facility] Last Admin: 02/01/17 07:20 Dose: 5 mg Metoprolol Tartrate (Lopressor) 50 mg PO BID [facility] Last Admin: 02/05/17 12:10 Dose: 50 mg Nystatin (Nystop Topical Powder) 0 gm TOP BID [facility] Last Admin: 02/05/17 12:15 Dose: 1 applic Pantoprazole Sodium (Protonix Inj) 40 mg IVP DAILY [facility] Last Admin: 02/05/17 12:12 Dose: 40 mg Potassium Chloride (Potassium Chloride Oral Soln) 20 meq PO 0800 [facility] Last Admin: 02/05/17 09:01 Dose: Not Given Sertraline HCl (Zoloft) 25 mg PO DAILY [facility] Last Admin: 02/05/17 12:11 Dose: 25 mg Tamsulosin HCl (Flomax) 0.4 mg PO DAILY [facility] Last Admin: 02/05/17 12:11 Dose: 0.4 mg Valsartan (Diovan) 320 mg PO DAILY [facility] Last Admin: 01/31/17 09:40 Dose: Not Given - Labs Labs: 02/04/17 06:45 02/04/17 06:45 PT 10.9 Seconds (9.9-11.8) 01/29/17 10:45 INR 1.01 (0.93-1.08) 01/29/17 10:45 APTT 27.3 Seconds (23.7-30.8) 01/29/17 10:45 - Constitutional Appears: Non-toxic, No Acute Distress - Head Exam Head Exam: NORMAL INSPECTION - ENT Exam ENT Exam: Mucous Membranes Moist - Neck Exam Neck Exam: absent: Meningismus - Respiratory Exam Respiratory Exam: Decreased Breath Sounds - Cardiovascular Exam Cardiovascular Exam: +S1, +S2 - GI/Abdominal Exam GI & Abdominal Exam: Soft. absent: Tenderness Assessment and Plan - Assessment and Plan (Free Text) Plan: Assessment consider atypical healthcare-associated pneumonia, clinically improving S/P G-tube placement Staph lugdunensis in urine cx, consider asymptomatic bacteriuria, in this patient with urinary incontinence - repeat urine cx are negative without specific treatment acute CVA (ischemic, left frontal) HTN DM CAD dyslipidemia S/P hernia repair Plan continue Doxycycline (we have kept it IV because the patient has swallowing issues) - day 7 of 4-7 days cultures have been negative, PCT is only 0.2; CXR shows chronic interstitial markings but no lobar consolidation repeat urine cx are negative will continue to monitor clinically
[2017-02-06] MEDS: diltiaZEM IVPB 100mg in NS 100 ML IV PRN (19:53)
--- NOTE | 2017-02-06 20:23 | PN ---
PULMONARY PROGRESS NOTE DATE: 02/06/2017 REFERRING PHYSICIAN: Dr. Mcmahon. SUBJECTIVE: He is lying in the bed at 45 degrees. Just participated in therapy. Did well. and son are at bedside. Tolerating BiPAP well. No cough. No sputum production. No nausea. No vomiting or diarrhea. No leg pain or leg swelling. OBJECTIVE: GENERAL: No acute distress. VITAL SIGNS: Temperature is 98, heart rate 82, respiratory rate is 20, blood pressure 122/81, pulse ox 98% on nasal cannula. HEENT: Moist mucous membranes. Crowded airway. NECK: Supple. No JVD. LUNGS: Fair air flow with few rhonchi. HEART: S1 and S2. ABDOMEN: Soft and nontender. No organomegaly. G-tube area looks okay. EXTREMITIES: There is no edema. NEUROLOGIC: Awake, alert. Follows simple commands. MEDICATIONS: He is on hydralazine 10 mg q.6 hours p.r.n., Aricept 10 mg at bedtime, aspirin 81 mg daily, diltiazem is 240 mg daily, Catapres patch weekly, Diovan 320 mg daily, Eliquis 5 mg twice a day, Flomax 0.4 mg daily, insulin coverage, Levaquin 500 mg daily, Lipitor 10 mg daily, metoprolol tartarate is 50 mg twice a day, Nystatin at affected area, Pepcid 20 mg daily, K-Phos 20 mEq daily, Protonix 40 mg daily, IV fluids normal saline 100 mL per hour, vitamin B12 100 mcg daily, Zetia 10 mg daily and Zoloft 20 mg daily. LABORATORY DATA: Shows hemoglobin 14.7, hematocrit 43.3, WBC 12.7 and platelet is 117. Blood sugar 182. IMPRESSION AND PLAN: Ischemic stroke, hypertension, diabetes, atrial fibrillation, feeding difficulty requiring G-tube, sleep apnea syndrome. Pulmonary point of view, I spoke to the patient's family at bedside. All the questions answered. Keep head 45 degrees, bronchodilator, BiPAP while sleeping, gastric prophylaxis, deep venous thrombosis prophylaxis. Anticoagulation when cleared by Neurology. Continue therapy, will benefit from neuro acute rehab. Thank you and we will follow with you. Huber Lang MD
--- NOTE | 2017-02-07 00:31 | PN ---
DATE: 02/06/2017 SUBJECTIVE: This patient was seen and evaluated earlier today. Discussed with the patient's son who was at bedside. Patient is tolerating the G-tube feeding at 40 mL per hour. PHYSICAL EXAMINATION VITAL SIGNS: Patient is afebrile. Blood pressure of 122/81, respirations is 20 and heart rate 82. HEENT: Atraumatic. Anicteric. Facial droop present. NECK: Supple. HEART: S1 and S2 heard. LUNGS: Bilateral air entry present. EXTREMITIES: No cyanosis or edema. NEUROLOGIC: Patient has left-sided weakness. LABORATORY DATA: Hemoglobin 14.7, hematocrit 43.3, WBC is 12.7 and platelet is 117. No recent chemistry. IMPRESSION AND PLAN: This is a 81-year-old patient status post cardiovascular accident, atrial fibrillation on Eliquis, neurogenic dysphagia status post percutaneous endoscopic gastrostomy tube placement. Patient is tolerating the feeding at 40 mL per hour, slowly advance the diet. Patient does have duodenal gastric ulcer, patient is also on aspirin. Presently on Pepcid at nighttime and Protonix in a.m. Close followup of hemoglobin and hematocrit. The other comorbidities include diabetes mellitus, hypertension, dyslipidemia, atrial fibrillation. Would recommend also to repeat the chemistry. Discussed with the patient's son at length. Thank you very much for allowing us to participate in the care of this patient. Lia Day MD
--- NOTE | 2017-02-07 02:59 | PN ---
DATE: 02/05/2017 SUBJECTIVE: Status post PEG tube feeding. The patient getting Glucerna at 30 mL/hour. He is more awake. He is talking. He feels thirsty and no distress. PHYSICAL EXAMINATION VITAL SIGNS: Temperature 98.2, heart rate 89, blood pressure 149/88, respirations 18 and saturation 98%. HEAD AND NECK: Normal. No JVD. No thyromegaly. CHEST EXAM: Clear, good air entry. CARDIAC: First sound and second sound normal, regular. ABDOMEN: Soft, obese, nontender. EXTREMITIES: No edema. NEUROLOGICALLY: Normal. LABORATORY DATA: Blood sugar is in the 150 to 200 and his hematology including CBC that was not done on 02/05. We will repeat lab in the morning. The patient had PEG tube placement. There was a small ulceration, small peptic ulcer. IMPRESSION AND PLAN: 1. Acute cerebrovascular accident with left hemiplegia, continue aspirin, resume Eliquis. The patient will be changed to Cardizem to p.o. per cardiology, so at this time increase feeding gradually as tolerated, check residual and we will follow up clinically. 2. As per endoscopy, there is a small peptic ulcer, spoke with the gastrointestinal. Continue aspirin. Continue Eliquis, Protonix and Pepcid was added and we will follow up clinically, stable. The risk of recurrent stroke is much higher and outweigh the risk of bleeding. 3. Hypertension, stable. We will change Cardizem to p.o. Continue other meds. 4. Coronary artery disease, hypertension, chronic atrial fibrillation. Continue anticoagulation. Continue current management. 5. Prostate enlargement, history of hematuria in the past, stable, no recurrence. 6. History of chronic osteoarthritis, severe degenerative arthritis, both bilateral knees. 7. History of mild dementia. Continue Aricept. Continue aspirin. Continue current management. Follow up clinically. Continue Zoloft. Also, the patient was given B12. Lowell Mcmahon MD Job # [id number]
--- NOTE | 2017-02-07 06:41 | PN ---
DATE: 02/04/2017 SUBJECTIVE: The patient is going to be for PEG placement today. He has no distress. Heart rate seems running high. No chest pain, no short of breath. Otherwise stable. PHYSICAL EXAMINATION VITAL SIGNS: Temperature 97.6, heart rate 84, blood pressure 143/88, respiration 15, saturation 98% on 1 L. HEAD AND NECK: Normal. No JVD, no thyromegaly. CHEST: Clear. CARDIAC: First sound and second sound normal. It was fast, now it has slowed down better. ABDOMEN: Soft, nontender. EXTREMITIES: No edema. NEUROLOGIC: Left hemiplegia. LABORATORY DATA: His white count 12.8, hemoglobin 16.2, hematocrit 47.1, platelets 120. Chemistry; blood sugar runs in the 190, sodium 144, potassium 4.3, chloride 110, bicarb 23, BUN 28, creatinine 1. Liver function test is normal. MRI of the brain also shows large infarctions, the right parietal lobe and also part of the occipital lobe. IMPRESSION: 1. Acute cerebrovascular accident, continue current treatment. The patient was given aspirin, will be placed on Eliquis after PEG tube placement. Continue physical therapy. Plan; acute rehab at [facility]. 2. Hypertension. 3. Tachycardia, continue Cardizem drip, hopefully slow down heart rate and the patient will get his PEG tube done today. 4. Diabetes type 2. Continue current meds and insulin coverage. 5. Hypercholesterolemia. 6. Coronary artery disease. 7. Chronic atrial fibrillation. 8. Prostate enlargement. 9. History of hematuria, seems to resolve, stable. Plan is to continue current treatment. We will speak with the senior communications specialist Dr. Valera to work with Cardizem drip to help slow down the heart rate and get the PEG tube placed, so we can send the patient to rehab as soon as the patient stabilizes. PLAN: Continue current treatment, discussed with and discussed with his son. Continue current management. Lowell Mcmahon MD
[2017-02-07] MEDS: Sodium Chloride 0.9% 1,000 ML IV SCH (08:24)
[2017-02-07] MEDS: Insulin Reg-LOW-Coverage SC SCH ×4 (08:27→22:17)
--- NOTE | 2017-02-07 08:55 | PN ---
DATE: 02/04/2017 REASON FOR CONSULTATION: Followup CVA, left-sided weakness, dysphagia, status post NG tube placed, going for endoscopy. SUBJECTIVE: The patient's is at the bedside. Denies any chest pain, any shortness of breath or any palpitation. OBJECTIVE: GENERAL: Not in apparent distress. Lying flat in the bed. Awaiting for endoscopy today. VITAL SIGNS: Temperature afebrile, heart rate 60, blood pressure 146/96. HEENT: PERRLA. Extraocular muscles intact. NECK: Supple. No carotid bruit or thyromegaly. CHEST: Clear to auscultation. HEART: S1 and S2 regular. ABDOMEN: Soft. EXTREMITIES: Clubbing and cyanosis negative. LABORATORY DATA: Blood workup as follows, WBC 12.8, hemoglobin 16.1, hematocrit 47.1, and platelet count 120. Chemistry shows sodium 144, potassium 4.3, chloride 110, carbon dioxide 23, anion gap of 15, BUN 28, creatinine 1.0. Repeat MRI shows large infarct involving the medial surface of the right frontal and parietal, occipital lobe in the distribution anterior cerebral artery. No significant hemorrhage noted . IMPRESSION: A 81-year-old male with past medical history of chronic atrial fibrillation, very noncompliant with the medication, admitted with left-sided weakness, which is getting significant infarct at one point, it was reported as hemorrhage so anticoagulation stopped. The patient was supposed to take Eliquis 5 mg b.i.d., but does not take as regularly as per son, Zan. The patient initially kept n.p.o. so started on Cardizem. Now, the patient is on nasogastric tube, started on Cardizem. Plan is to get percutaneous endoscopic gastrostomy today, so held yesterday [facility]. Discussed with neurologist Dr. Jonathan Cuevas. Discussed with per Dr. Mcmahon. Once the percutaneous endoscopic gastrostomy is placed, we will restart Eliquis 5 mg b.i.d. after the percutaneous endoscopic gastrostomy is okay to be used. Discussed with the who was at the bedside. The patient needs long-term religiously Eliquis; though risk is high for infarct hemorrhage with risks, benefits in favor. Discussed with Dr. Mcmahon also and discussed with the patient's family, Zan lockhart. For now, plan is to hold Lovenox to get percutaneous endoscopic gastrostomy today. Continue beta-abelino through the nasogastric tube. Continue hydralazine IV p.r.n. We will follow with you. Thank you Dr. Mcmahon for providing me the opportunity in taking care of the patient, Mila Bangura. Huber Valera MD
[2017-02-07] MEDS: Nystatin 100,000 Units/gm Topical Pow(15 gm) TOP SCH ×2 (09:30→18:36)
--- NOTE | 2017-02-07 09:48 | PN ---
SUBJECTIVE: I was asked to evaluate the patient for possible transfer to [facility]. The patient denies any chest pain. PHYSICAL EXAMINATION: VITAL SIGNS: Blood pressure 141/90, heart rate 103, temperature 98.4, respirations 20. HEENT: Loss of left nasolabial fold. NECK: No JVD. CHEST: Clear. HEART: S1 and S2 regular. EXTREMITIES: No edema. LABORATORY DATA: Hemoglobin and hematocrit 14.7 and 43.3, white count 12.7, platelet count for the first time 117, earlier platelet counts are within normal limits. ASSESSMENT: 1. Acute cerebrovascular accident involving the mid right frontal lobe. 2. Left hemiplegia. 3. Status post gastrostomy feeding tube placement. 4. Mild thrombocytopenia. 5. Atrial fibrillation. RECOMMENDATIONS: The patient can be transferred to [facility] on [address] SUAREZ, Madhuri kemp, on Eliquis at 5 mg twice a day, Lopressor 50 mg twice a day with followup of his platelet level which if drops significantly Eliquis has to be reduced or withheld completely. Erik Stanton MD
[2017-02-07 09:55] LABS: HEMATOCRIT 40.4 % (42.0-52.0); MEAN CELL VOLUME 94.6 fl (80.0-105.0); MEAN CORPUSCULAR HEMOGLOBIN 31.9 pg (25.0-35.0); MEAN CORPUSCULAR HGB CONC 33.7 g/dl (31.0-37.0); MEAN PLATELET VOLUME 12.5 fl (7.0-11.0); RED CELL DISTRIBUTION WIDTH 13.3 % (11.5-14.5); WHITE BLOOD COUNT 11.4 10^3/ul (4.5-11.0)
[2017-02-07] MEDS: levoFLOXacin 500 MG TAB PO SCH (12:09)
[2017-02-07] MEDS: diltiaZEM 240 mg/24 Hours CD Cap PO SCH (12:10)
[2017-02-07] MEDS: Potassium Chloride 20 mEq/15 ml LIQ UD PO SCH (12:12)
[2017-02-07] MEDS: Pantoprazole 40 mg Susp UD PO SCH (12:18)
--- NOTE | 2017-02-07 12:34 | CP.PCM.PN ---
<Dakota Lau - Last Filed: 02/07/17 12:27> Subjective - Date & Time of Evaluation Date of Evaluation: 02/07/17 Time of Evaluation: 09:00 - Subjective Subjective: Neurology progress note, Dr. Cuevas service Patient seen and examined at bedside. No acute events overnight. Resting but easily arousable. As per son, pt's speech has improved considerably from admission, but not back to baseline. More awake and alert as compared to exams last week. Answering some yes/no questions without overt difficulty today. Still has L-sided paresis, but sensation on left intact. S/p PEG tube for feeds , tolerating well. Objective - Vital Signs/Intake and Output Vital Signs (last 24 hours): Temp Pulse Resp BP Pulse Ox 98 F 81 19 144/90 93 L 02/07/17 06:00 02/07/17 12:10 02/07/17 06:00 02/07/17 12:10 02/07/17 06:00 Intake and Output: 02/07/17 02/07/17 06:59 18:59 Intake Total 1812 Balance 1812 - Medications Medications: Current Medications Apixaban (Eliquis) 5 mg PO BID [facility] PRN Reason: Protocol Last Admin: 02/07/17 12:09 Dose: 5 mg Aspirin (Aspirin Chewable) 81 mg PO DAILY [facility] Last Admin: 02/07/17 12:14 Dose: 81 mg Atorvastatin Calcium (Lipitor) 10 mg PO DIN [facility] Last Admin: 02/06/17 18:14 Dose: 10 mg Clonidine HCl (Catapres-Tts3 0.3 Mg/24 Hr) 1 patch TD Q7D@1000 [facility] Cyanocobalamin (Vitamin B12 100 Mcg Tab) 100 mcg PO DAILY [facility] Last Admin: 02/07/17 12:09 Dose: 100 mcg Diltiazem HCl (Cardizem Cd) 240 mg PO DAILY [facility] Last Admin: 02/07/17 12:10 Dose: 240 mg Donepezil HCl (Aricept) 10 mg PO HS [facility] Last Admin: 02/06/17 21:56 Dose: 10 mg Ezetimibe (Zetia) 10 mg PO DAILY [facility] Last Admin: 02/07/17 12:13 Dose: 10 mg Famotidine (Pepcid) 20 mg PO 1000,2200 [facility] Last Admin: 09/11/17 12:18 Dose: 20 mg Hydralazine HCl (Apresoline) 10 mg IVP Q6 PRN PRN Reason: Systolic Blood Pressure Last Admin: 02/04/17 23:21 Dose: 10 mg Sodium Chloride (Sodium Chloride 0.9%) 1,000 mls @ 100 mls/hr IV .Q10H [facility] Last Admin: 02/07/17 08:24 Dose: 100 mls/hr Insulin Human Regular (Humulin R Low) 0 units SC ACHS [facility] PRN Reason: Protocol Last Admin: 02/07/17 12:09 Dose: 2 units Levofloxacin (Levaquin) 500 mg PO DAILY [facility] Last Admin: 02/07/17 12:09 Dose: 500 mg Metoprolol Tartrate (Lopressor) 50 mg PO BID [facility] Nystatin (Nystop Topical Powder) 0 gm TOP BID [facility] Last Admin: 02/07/17 09:30 Dose: 1 applic Pantoprazole Sodium (Protonix Susp) 40 mg PO 0600,1600 [facility] Last Admin: 02/07/17 12:18 Dose: 40 mg Potassium Chloride (Potassium Chloride Oral Soln) 20 meq PO 0800 [facility] Last Admin: 02/07/17 12:12 Dose: 20 meq Sertraline HCl (Zoloft) 25 mg PO DAILY [facility] Last Admin: 02/07/17 12:09 Dose: 25 mg Tamsulosin HCl (Flomax) 0.4 mg PO DAILY [facility] Last Admin: 02/07/17 12:08 Dose: 0.4 mg Valsartan (Diovan) 320 mg PO DAILY [facility] Last Admin: 01/31/17 09:40 Dose: Not Given - Labs Labs: 02/07/17 09:30 02/04/17 06:45 PT 10.9 Seconds (9.9-11.8) 01/29/17 10:45 INR 1.01 (0.93-1.08) 01/29/17 10:45 APTT 27.3 Seconds (23.7-30.8) 01/29/17 10:45 - Additional Findings Additional findings: - Constitutional Appears: Non-toxic, No Acute Distress - Head Exam Head Exam: ATRAUMATIC. absent: NORMAL INSPECTION Left sided facial drop/paralysis of muscles of facial expression, eyelids equally open Minimally verbal - Eye Exam Eye Exam: absent: Conjunctival injection, Scleral icterus Pupil Exam: Unequal. absent: Irregular Additional comments: Moving eyes to track staff and visual stimuli within bilateral visual wilson, no gross nystagmus PERRL bilaterally - ENT Exam ENT Exam: Mucous Membranes Moist, Wearing CPAP mask - Neck Exam Neck Exam: absent: Full ROM (only moving eyes to track across room) - Respiratory Exam Respiratory Exam: Decreased Breath Sounds (mildly decreased breath sounds in all wilson), Clear to Ausculation Bilateral, NORMAL BREATHING PATTERN. absent: Accessory Muscle Use, Chest Wall Tenderness, Prolonged Expiratory Phase, Rales, Rhonchi, Wheezes - Cardiovascular Exam Cardiovascular Exam: Irregularly Irregular, +S1, +S2. absent: Tachycardia, Bradycardia, JVD, +S4 - GI/Abdominal Exam GI & Abdominal Exam: Soft, Normal Bowel Sounds. absent: Distended, Firm, Rigid , Diminished Bowel Sounds, Hyperactive Bowel Sounds, Hypoactive Bowel Sounds - Extremities Exam Moving right hand spontaneously and on command, some movement of RUE (motor strength 5/5 in wrist and with patent law specialist strength, 3/5 for remainder of RUE) No LLE or LUE movement No gross pitting edema in bilateral LE, no gross erythema or palpable temperature abnormalities +2 radials and +1 dorsalis pedis pulses bilaterally - Neurological Exam Additional comments: More awake and alert today, both eyes wide open and tracking staff in room throughout exam Motor strength in extremities as documented in extremities exam Visual L facial droop, minimally verbal with slurred speech Bilateral plantar reflexes intact - Psychiatric Exam Following commands, so comprehension appears intact As per son, recognizes family and friends, remembers nicknames for them, but when remembering why he is in hospital and comprehending his condition, becomes depressed and withdrawn - Skin Skin Exam: Dry, Intact, Normal Color, Warm Assessment and Plan - Assessment and Plan (Free Text) Assessment: This is a 81 yo Turk[place] M with PMH of Afib on Eliquis, dyslipidemia, poorly controlled HTN, DM, prior CVA, and dementia normally on Aricep who presented to [facility] [facility] with acute onset of L-sided weakness and slurred speech on awakening, as reported by family. He was later determined to have an acute right MCA region infarct on MRI; not a tPA candidate due to unclear time of onset of stroke. CVA most likely 2/2 poorly controlled HTN and diffuse atherosclerotic disease with underlying dyslipidemia and diabetes. No signs of new bleeding on repeat scans of brain, so baby aspirin and low dose eliquis have been restarted as per Cardio. While there is a risk of hemorrhagic conversion of stroke while on anticoagulation, given the size of the stroke, the benefit of anticoagulation in a patient with known afib and prior stroke outweighs the risk of bleeding from anticoagulation. S/p PEG tube placement, tolerating feeds well. Patient remains neurologically stable at this time. Plan: 1) Asa 81mg and low dose eliquis restarted as per Cardio 2) S/p PEG tube, tolerating feeds well 3) Persisting L-sided weakness and neglect, will need senior care rehab after resolution/stabilization of current condition 4) PT/OT 5) Thiamine for cognition 6) Continue Lipitor 80mg for stroke prevention Patient reviewed and discussed with attending, Dr. Cuevas. <Jonathan Cuevas - Last Filed: 02/07/17 13:54> Objective - Vital Signs/Intake and Output Vital Signs (last 24 hours): Temp Pulse Resp BP Pulse Ox 98 F 81 19 144/90 93 L 02/07/17 06:00 02/07/17 12:10 02/07/17 06:00 02/07/17 12:10 02/07/17 06:00 Intake and Output: 02/07/17 02/07/17 06:59 18:59 Intake Total 1812 Balance 1812 - Medications Medications: Current Medications Apixaban (Eliquis) 5 mg PO BID [facility] PRN Reason: Protocol Last Admin: 02/07/17 12:09 Dose: 5 mg Aspirin (Aspirin Chewable) 81 mg PO DAILY [facility] Last Admin: 02/07/17 12:14 Dose: 81 mg Atorvastatin Calcium (Lipitor) 80 mg PO DIN [facility] Clonidine HCl (Catapres-Tts3 0.3 Mg/24 Hr) 1 patch TD Q7D@1000 [facility] Cyanocobalamin (Vitamin B12 100 Mcg Tab) 100 mcg PO DAILY [facility] Last Admin: 02/07/17 12:09 Dose: 100 mcg Diltiazem HCl (Cardizem Cd) 240 mg PO DAILY [facility] Last Admin: 02/07/17 12:10 Dose: 240 mg Donepezil HCl (Aricept) 10 mg PO HS [facility] Last Admin: 02/06/17 21:56 Dose: 10 mg Ezetimibe (Zetia) 10 mg PO DAILY [facility] Last Admin: 02/07/17 12:13 Dose: 10 mg Famotidine (Pepcid) 20 mg PO 1000,2200 [facility] Last Admin: 02/07/17 12:18 Dose: 20 mg Hydralazine HCl (Apresoline) 10 mg IVP Q6 PRN PRN Reason: Systolic Blood Pressure Last Admin: 02/04/17 23:21 Dose: 10 mg Sodium Chloride (Sodium Chloride 0.9%) 1,000 mls @ 100 mls/hr IV .Q10H [facility] Last Admin: 02/07/17 08:24 Dose: 100 mls/hr Insulin Human Regular (Humulin R Low) 0 units SC ACHS [facility] PRN Reason: Protocol Last Admin: 02/07/17 12:09 Dose: 2 units Metoprolol Tartrate (Lopressor) 50 mg PO BID [facility] Nystatin (Nystop Topical Powder) 0 gm TOP BID [facility] Last Admin: 02/07/17 09:30 Dose: 1 applic Pantoprazole Sodium (Protonix Susp) 40 mg PO 0600,1600 [facility] Last Admin: 02/07/17 12:18 Dose: 40 mg Potassium Chloride (Potassium Chloride Oral Soln) 20 meq PO 0800 [facility] Last Admin: 02/07/17 12:12 Dose: 20 meq Sertraline HCl (Zoloft) 25 mg PO DAILY [facility] Last Admin: 02/07/17 12:09 Dose: 25 mg Tamsulosin HCl (Flomax) 0.4 mg PO DAILY [facility] Last Admin: 02/07/17 12:08 Dose: 0.4 mg Valsartan (Diovan) 320 mg PO DAILY [facility] Last Admin: 01/31/17 09:40 Dose: Not Given - Labs Labs: 02/07/17 09:30 02/04/17 06:45 PT 10.9 Seconds (9.9-11.8) 01/29/17 10:45 INR 1.01 (0.93-1.08) 01/29/17 10:45 APTT 27.3 Seconds (23.7-30.8) 01/29/17 10:45 Attending/Attestation - Attestation I have personally seen and examined this patient.: Yes I have fully participated in the care of the patient.: Yes I have reviewed all pertinent clinical information, including history, physical exam and plan: Yes
--- NOTE | 2017-02-07 13:06 | CP.PCM.PN ---
Subjective - Date & Time of Evaluation Date of Evaluation: 02/07/17 Time of Evaluation: 10:20 - Subjective Subjective: Comfortable in bed, not in distress, afebrile. Objective - Vital Signs/Intake and Output Vital Signs (last 24 hours): Temp Pulse Resp BP Pulse Ox 98.4 F 103 H 20 141/90 97 02/06/17 06:13 02/06/17 09:39 02/06/17 06:13 02/06/17 09:39 02/06/17 06:13 Intake and Output: 02/06/17 02/06/17 06:59 18:59 Intake Total 1840 Output Total 2 Balance 1838 - Medications Medications: Current Medications Apixaban (Eliquis) 5 mg PO BID [facility] PRN Reason: Protocol Last Admin: 02/06/17 09:39 Dose: 5 mg Aspirin (Aspirin Chewable) 81 mg PO DAILY [facility] Last Admin: 02/06/17 09:38 Dose: 81 mg Atorvastatin Calcium (Lipitor) 10 mg PO DIN [facility] Last Admin: 02/05/17 20:18 Dose: 10 mg Clonidine HCl (Catapres-Tts3 0.3 Mg/24 Hr) 1 patch TD Q7D@1000 [facility] Cyanocobalamin (Vitamin B12 100 Mcg Tab) 100 mcg PO DAILY [facility] Last Admin: 02/06/17 09:39 Dose: 100 mcg Diltiazem HCl (Cardizem Cd) 240 mg PO DAILY [facility] Last Admin: 02/06/17 09:39 Dose: 240 mg Donepezil HCl (Aricept) 10 mg PO HS [facility] Last Admin: 02/05/17 22:38 Dose: 10 mg Ezetimibe (Zetia) 10 mg PO DAILY [facility] Last Admin: 02/06/17 09:40 Dose: 10 mg Famotidine (Pepcid) 20 mg IVP DAILY [facility] Hydralazine HCl (Apresoline) 10 mg IVP Q6 PRN PRN Reason: Systolic Blood Pressure Last Admin: 02/04/17 23:21 Dose: 10 mg Sodium Chloride (Sodium Chloride 0.9%) 1,000 mls @ 100 mls/hr IV .Q10H [facility] Last Admin: 02/06/17 12:42 Dose: 100 mls/hr diltiaZEM IVPB 100mg in NS (Cardizem 100mg In Ns) 100 mls @ 5 mls/hr IV .Q20H PRN; Protocol; 5 MG/HR PRN Reason: TITRATE PER MD ORDER Last Admin: 02/05/17 21:18 Dose: 5 mg/hr, 5 mls/hr Insulin Human Regular (Humulin R Low) 0 units SC ACHS [facility] PRN Reason: Protocol Last Admin: 02/06/17 12:41 Dose: 2 units Levofloxacin (Levaquin) 500 mg PO DAILY [facility] Last Admin: 02/06/17 09:39 Dose: 500 mg Metoprolol Tartrate (Lopressor) 5 mg IVP Q6H [facility] Last Admin: 02/01/17 07:20 Dose: 5 mg Metoprolol Tartrate (Lopressor) 50 mg PO BID [facility] Last Admin: 02/06/17 09:39 Dose: 50 mg Nystatin (Nystop Topical Powder) 0 gm TOP BID [facility] Last Admin: 02/06/17 10:20 Dose: 1 applic Pantoprazole Sodium (Protonix Inj) 40 mg IVP DAILY [facility] Last Admin: 02/06/17 09:43 Dose: 40 mg Potassium Chloride (Potassium Chloride Oral Soln) 20 meq PO 0800 [facility] Last Admin: 02/06/17 09:42 Dose: 20 meq Sertraline HCl (Zoloft) 25 mg PO DAILY [facility] Last Admin: 02/06/17 09:38 Dose: 25 mg Tamsulosin HCl (Flomax) 0.4 mg PO DAILY [facility] Last Admin: 02/06/17 09:39 Dose: 0.4 mg Valsartan (Diovan) 320 mg PO DAILY [facility] Last Admin: 01/31/17 09:40 Dose: Not Given - Labs Labs: 02/06/17 06:00 02/04/17 06:45 PT 10.9 Seconds (9.9-11.8) 01/29/17 10:45 INR 1.01 (0.93-1.08) 01/29/17 10:45 APTT 27.3 Seconds (23.7-30.8) 01/29/17 10:45 - Constitutional Appears: Non-toxic, No Acute Distress - Head Exam Head Exam: NORMAL INSPECTION - ENT Exam ENT Exam: Mucous Membranes Moist - Neck Exam Neck Exam: absent: Lymphadenopathy, Meningismus - Respiratory Exam Respiratory Exam: Decreased Breath Sounds - Cardiovascular Exam Cardiovascular Exam: +S1, +S2 - GI/Abdominal Exam GI & Abdominal Exam: Soft. absent: Tenderness Assessment and Plan - Assessment and Plan (Free Text) Plan: Assessment S/P atypical healthcare-associated pneumonia, clinically improved and S/P treatment S/P G-tube placement Staph lugdunensis in urine cx, consider asymptomatic bacteriuria, in this patient with urinary incontinence - repeat urine cx are negative without specific treatment acute CVA (ischemic, left frontal) HTN DM CAD dyslipidemia S/P hernia repair Plan s/P 7 days of Doxycycline - will continue to monitor off antibiotics since he is at risk for nosocomial infections
--- NOTE | 2017-02-07 15:51 | CP.PCM.PN ---
<Nery Us - Last Filed: 02/07/17 15:50> Subjective - Date & Time of Evaluation Date of Evaluation: 02/07/17 Time of Evaluation: 10:00 - Subjective Subjective: Seen and examined at the bedside earlier this morning, the chart was reviewed. Patient currently on BiPAP, for sleeping no acute distress or overnight events reported. Patient take feedings at 50 cc an hour, nursing endorses toleration, no residuals. Objective - Vital Signs/Intake and Output Vital Signs (last 24 hours): Temp Pulse Resp BP Pulse Ox 98 F 81 19 144/90 93 L 02/07/17 06:00 02/07/17 12:10 02/07/17 06:00 02/07/17 12:10 02/07/17 06:00 Intake and Output: 02/07/17 02/07/17 06:59 18:59 Intake Total 1812 Balance 1812 - Medications Medications: Current Medications Apixaban (Eliquis) 5 mg PO BID [facility] PRN Reason: Protocol Last Admin: 02/07/17 12:09 Dose: 5 mg Aspirin (Aspirin Chewable) 81 mg PO DAILY [facility] Last Admin: 02/07/17 12:14 Dose: 81 mg Atorvastatin Calcium (Lipitor) 80 mg PO DIN [facility] Clonidine HCl (Catapres-Tts3 0.3 Mg/24 Hr) 1 patch TD Q7D@1000 [facility] Cyanocobalamin (Vitamin B12 100 Mcg Tab) 100 mcg PO DAILY [facility] Last Admin: 02/07/17 12:09 Dose: 100 mcg Diltiazem HCl (Cardizem Cd) 240 mg PO DAILY [facility] Last Admin: 02/07/17 12:10 Dose: 240 mg Donepezil HCl (Aricept) 10 mg PO HS [facility] Last Admin: 02/06/17 21:56 Dose: 10 mg Ezetimibe (Zetia) 10 mg PO DAILY [facility] Last Admin: 02/07/17 12:13 Dose: 10 mg Famotidine (Pepcid) 20 mg PO 1000,2200 [facility] Last Admin: 02/07/17 12:18 Dose: 20 mg Hydralazine HCl (Apresoline) 10 mg IVP Q6 PRN PRN Reason: Systolic Blood Pressure Last Admin: 02/04/17 23:21 Dose: 10 mg Sodium Chloride (Sodium Chloride 0.9%) 1,000 mls @ 100 mls/hr IV .Q10H [facility] Last Admin: 02/07/17 08:24 Dose: 100 mls/hr Insulin Human Regular (Humulin R Low) 0 units SC ACHS [facility] PRN Reason: Protocol Last Admin: 02/07/17 12:09 Dose: 2 units Metoprolol Tartrate (Lopressor) 50 mg PO BID [facility] Nystatin (Nystop Topical Powder) 0 gm TOP BID [facility] Last Admin: 02/07/17 09:30 Dose: 1 applic Pantoprazole Sodium (Protonix Susp) 40 mg PO 0600,1600 [facility] Last Admin: 02/07/17 12:18 Dose: 40 mg Potassium Chloride (Potassium Chloride Oral Soln) 20 meq PO 0800 [facility] Last Admin: 02/07/17 12:12 Dose: 20 meq Sertraline HCl (Zoloft) 25 mg PO DAILY [facility] Last Admin: 02/07/17 12:09 Dose: 25 mg Tamsulosin HCl (Flomax) 0.4 mg PO DAILY [facility] Last Admin: 02/07/17 12:08 Dose: 0.4 mg Valsartan (Diovan) 320 mg PO DAILY [facility] Last Admin: 01/31/17 09:40 Dose: Not Given - Labs Labs: 02/07/17 09:30 02/04/17 06:45 PT 10.9 Seconds (9.9-11.8) 01/29/17 10:45 INR 1.01 (0.93-1.08) 01/29/17 10:45 APTT 27.3 Seconds (23.7-30.8) 01/29/17 10:45 - Constitutional Appears: No Acute Distress - Eye Exam Eye Exam: Normal appearance. absent: Scleral icterus - ENT Exam ENT Exam: Mucous Membranes Moist - Neck Exam Neck Exam: Normal Inspection - Respiratory Exam Respiratory Exam: Rhonchi, NORMAL BREATHING PATTERN. absent: Respiratory Distress - Cardiovascular Exam Cardiovascular Exam: +S1, +S2 - GI/Abdominal Exam GI & Abdominal Exam: Soft, Normal Bowel Sounds. absent: Guarding, Tenderness, Rebound Additional comments: positive for PEG, dry and intact - Extremities Exam Extremities Exam: Normal Capillary Refill - Neurological Exam Neurological Exam: Awake - Skin Skin Exam: Dry, Warm Assessment and Plan - Assessment and Plan (Free Text) Assessment: Assessment: CVA with left-sided weakness and acute right frontal lobe infarct status post repeat CT scan of the head this morning revealing infarct progression Dysphagiashe is status post EGD found to have duodenal ulcers, PEG insertion Atrial fibrillation Leukocytosis Hypertension Cet-lofywha-hojomfdym diabetes Plan: Continue PEG feedings at 50 cc an hour, check residuals Aspiration precautions on Eliquis on Protonix twice a day, will discontinue Pepcid twice a day on IV antibiotics Neurology follow-up as per cardiology Seen and discussed with Dr. Day <Lia Day V - Last Filed: 02/07/17 22:52> Objective - Vital Signs/Intake and Output Vital Signs (last 24 hours): Temp Pulse Resp BP Pulse Ox 98.3 F 99 H 18 143/83 93 L 02/07/17 18:00 02/07/17 18:32 02/07/17 18:00 02/07/17 18:32 02/07/17 06:00 - Medications Medications: Current Medications Apixaban (Eliquis) 5 mg PO BID [facility] PRN Reason: Protocol Last Admin: 02/07/17 18:32 Dose: 5 mg Aspirin (Aspirin Chewable) 81 mg PO DAILY [facility] Last Admin: 02/07/17 12:14 Dose: 81 mg Atorvastatin Calcium (Lipitor) 80 mg PO DIN [facility] Last Admin: 02/07/17 18:37 Dose: 80 mg Clonidine HCl (Catapres-Tts3 0.3 Mg/24 Hr) 1 patch TD Q7D@1000 [facility] Cyanocobalamin (Vitamin B12 100 Mcg Tab) 100 mcg PO DAILY [facility] Last Admin: 02/07/17 12:09 Dose: 100 mcg Diltiazem HCl (Cardizem Cd) 240 mg PO DAILY [facility] Last Admin: 02/07/17 12:10 Dose: 240 mg Donepezil HCl (Aricept) 10 mg PO HS [facility] Last Admin: 02/07/17 22:05 Dose: 10 mg Ezetimibe (Zetia) 10 mg PO DAILY [facility] Last Admin: 02/07/17 12:13 Dose: 10 mg Hydralazine HCl (Apresoline) 10 mg IVP Q6 PRN PRN Reason: Systolic Blood Pressure Last Admin: 02/04/17 23:21 Dose: 10 mg Insulin Human Regular (Humulin R Low) [address] [facility] PRN Reason: Protocol Last Admin: 02/07/17 22:17 Dose: Not Given Metoprolol Tartrate (Lopressor) 50 mg PO BID [facility] Last Admin: 02/07/17 18:32 Dose: 50 mg Nystatin (Nystop Topical Powder) 0 gm TOP BID [facility] Last Admin: 02/07/17 18:36 Dose: 1 applic Pantoprazole Sodium (Protonix Susp) 40 mg PO 0600,1600 [facility] Last Admin: 02/07/17 12:18 Dose: 40 mg Potassium Chloride (Potassium Chloride Oral Soln) 20 meq PO 0800 [facility] Last Admin: 02/07/17 12:12 Dose: 20 meq Sertraline HCl (Zoloft) 25 mg PO DAILY [facility] Last Admin: 02/07/17 12:09 Dose: 25 mg Tamsulosin HCl (Flomax) 0.4 mg PO DAILY [facility] Last Admin: 02/07/17 12:08 Dose: 0.4 mg Valsartan (Diovan) 320 mg PO DAILY [facility] Last Admin: 01/31/17 09:40 Dose: Not Given - Labs Labs: 02/07/17 09:30 02/04/17 06:45 PT 10.9 Seconds (9.9-11.8) 01/29/17 10:45 INR 1.01 (0.93-1.08) 01/29/17 10:45 APTT 27.3 Seconds (23.7-30.8) 01/29/17 10:45 Attending/Attestation - Attestation I have personally seen and examined this patient.: Yes I have fully participated in the care of the patient.: Yes I have reviewed all pertinent clinical information, including history, physical exam and plan: Yes Notes (Text): This patient was seen and evaluated earlier. Tolerating G-tube feeding Duodenal and gastric ulcers noticed a during the endoscopy . Pt is on high-dose PPI ,close follow-up of the hemoglobin and hematocrit Patient is on Eliquis and also on aspirin. History of A. fib status post recent CVA. 02/07/17 22:50
[2017-02-07 18:13] VITALS: RESP 18
--- NOTE | 2017-02-07 21:12 | PN ---
DATE: 02/07/2017 REASON FOR CONSULTATION: AFib, CVA, status post PEG. SUBJECTIVE: The patient denies any chest pain, shortness of breath. He is status post PEG. OBJECTIVE: He is status post PEG, lying flat in the bed, not in apparent distress. PHYSICAL EXAMINATION: VITAL SIGNS: As follows: Temperature afebrile, heart rate 81, blood pressure 144/98. HEENT: PERRLA. Extraocular muscles intact. NECK: Supple. No carotid bruit. No thyromegaly. CHEST: Clear to auscultation. HEART: S1 and S2, regular. ABDOMEN: Soft. EXTREMITIES: Clubbing and cyanosis is negative. LABORATORY DATA: Blood workup as follows: WBC 11.5, hemoglobin 13.7, hematocrit 40.4 and platelet count 120. Chemistry shows sodium 140, potassium 4.3, chloride 110, carbon dioxide 30, anion gap of 15, BUN 20, creatinine is 1.0. IMPRESSION: A 81-year-old male with past medical history for chronic atrial fibrillation admitted with stroke. No significant hemorrhage, left hemiplegia status post PEG placement, mild thrombocytopenia, chronic atrial fibrillation. RECOMMENDATION: Start Eliquis. Start metoprolol, the patient was on 200 mg, but since the patient is on Cardizem CD also start with we will decrease the metoprolol to 50 b.i.d. Continue Eliquis, continue NG feeding, possible transfer to rehab facility. Since the patient has been on Cardizem also to prevent significant bradycardia, we will cut down the metoprolol to 50 b.i.d. and we will continue Cardizem, continue Eliquis, continue valsartan, continue hydralazine p.r.n. Thank you Dr. Mcmahon for providing me the opportunity in taking care of the patient. We will follow with you. Huber Valera MD
--- NOTE | 2017-02-08 01:40 | PN ---
PULMONARY PROGRESS NOTE REFERRING PHYSICIAN: Dr. Mcmahon. DATE: 02/07/2017 SUBJECTIVE: The patient is lying in the bed at 45 degrees. Family is at bedside. Much more alert and alert. Follows simple commands. No nausea. No vomiting. No diarrhea. No leg pain or leg swelling. Tolerating BiPAP well. OBJECTIVE: GENERAL: No acute distress. VITAL SIGNS: Temperature is 98, heart rate is 99, respiratory rate is 18, blood pressure 143/83, pulse ox 98% on 2 L nasal cannula. HEENT: Moist mucous membranes. Crowded airway. NECK: Supple. No JVD. LUNGS: Fair air flow with few rhonchi. HEART: S1 and S2. ABDOMEN: Soft, nontender, no organomegaly. G-tube area looks okay. EXTREMITIES: There is no edema. NEUROLOGIC: Awake, alert. Does follow simple commands. MEDICATIONS: He is on hydralazine 10 mg q. 6 hour p.r.n.; Aricept 10 mg at bedtime; aspirin 81 mg daily; Cardizem CD 240 mg daily; Catapres patch q. 7 days; Diovan 320 mg daily; Eliquis 5 mg twice a day; Flomax 0.4 mg daily; insulin coverage; Lipitor 80 mg daily; metoprolol tartrate 50 mg twice a day; nystatin affected area twice a day; potassium 20 mEq daily; Protonix 40 mg twice a day; vitamin B12, 100 mcg daily; Zetia 10 mg daily; and Zoloft 25 mg daily. LABORATORY DATA: Shows hemoglobin 13.6, hematocrit 40.4, WBC 11.4, platelet is 120, and blood sugar is 218. IMPRESSION AND PLAN: Ischemic stroke, hypertension, diabetes, atrial fibrillation, feeding difficulty requiring G-tube, sleep apnea syndrome. I spoke to family at bedside. All the questions answered. Continue physical therapy, keep head at 45 degrees, BiPAP while sleeping, gastric prophylaxis, deep venous thrombosis prophylaxis. Start anticoagulation when cleared by neurology. Thank you and we will follow with you. Huber Lang MD
[2017-02-08] MEDS: Pantoprazole 40 mg Susp UD PO SCH (05:50)
[2017-02-08 06:41] VITALS: BP 135/71; PULSE 68; TEMP 97.7; O2SAT 99
[2017-02-08] MEDS ORDERED: Pantoprazole 40 mg EC Tab PO SCH (07:00)
[2017-02-08 07:40] LABS: HEMATOCRIT 42.6 % (42.0-52.0); MEAN CELL VOLUME 93.2 fl (80.0-105.0); MEAN CORPUSCULAR HEMOGLOBIN 31.7 pg (25.0-35.0); MEAN PLATELET VOLUME 12.7 fl (7.0-11.0); RED CELL DISTRIBUTION WIDTH 13.1 % (11.5-14.5); WHITE BLOOD COUNT 11.6 10^3/ul (4.5-11.0)
--- NOTE | 2017-02-08 08:20 | PN ---
DATE: 02/07/2017 SUBJECTIVE: The patient is seen and lying in bed. He is awake, eyes are open. Following some commands. PHYSICAL EXAMINATION GENERAL: An elderly male lying in bed. VITAL SIGNS: Blood pressure 143/83, heart rate 99, respiratory rate 18, and temperature 98.3. HEENT: Normocephalic and atraumatic. NECK: Supple. No JVD. LUNGS: Bilateral equal air entry, no rales. CARDIAC: S1 and S2. Regular rate rhythm. No murmur, no rub. ABDOMEN: Soft, nondistended, nontender, positive PEG. Bowel sounds present. EXTREMITIES: No lower extremity edema. HYBRID CORN BREEDER: Left hemiparesis. LABORATORY DATA: WBC 11.4, hemoglobin 13.6, hematocrit 40, platelets 118. No new chemistry. CURRENT MEDICATIONS: Hydralazine p.r.n., Aricept, aspirin, Cardizem CD 240 mg daily, Diovan on hold, Eliquis, Flomax, insulin, Lipitor, Lopressor 50 b.i.d., and Protonix. ASSESSMENT AND PLAN: 1. Right cerebrovascular accident. 2. Left hemiparesis. 3. Dysphagia. 4. Hypernatremia. 5. Hypertension. 6. Coronary artery disease. PLAN: 1. Advance PEG feeds. 2. Continue antihypertensives. 3. Free water via PEG. 4. Stable renal standpoint. Amy Saez MD
[2017-02-08 08:35] LABS: ALB/GLOB RATIO 0.9 (1.1-1.8); ALKALINE PHOSPHATASE 71 U/L (38-126); ALT/SGPT 20 U/L (7-56); AST/SGOT 30 U/L (17-59); BILIRUBIN,TOTAL 0.8 mg/dL (0.2-1.3); BLOOD UREA NITROGEN 24 mg/dL (7-21); CALCIUM 8.7 mg/dL (8.4-10.5); CARBON DIOXIDE 23 mmol/L (21-33); CHLORIDE 108 mmol/L (98-107); GFR AFRICAN-AMERICAN > 60; GLUCOSE,RANDOM 229 mg/dL (70-110); POTASSIUM 4.1 mmol/L (3.6-5.0); SODIUM 142 mmol/L (132-148); TOTAL PROTEIN 5.8 g/dL (5.8-8.3)
--- NOTE | 2017-02-08 08:37 | DS ---
HISTORY OF PRESENT ILLNESS: The patient is stable, ready to go for [facility] rehabilitation. He has no chest pain, no distress. PHYSICAL EXAMINATION: VITAL SIGNS: Temperature 98.3, heart rate is 86, blood pressure 143/83, respirations 18, saturation 95%. HEENT: Head and neck, normal. No JVD. No thyromegaly. CHEST: Clear. Good air entry. CARDIAC: First sound and second sound normal and regular. ABDOMEN: Soft, nontender. EXTREMITIES: No edema. NEUROLOGIC: Left hemiplegia. The patient is seen by neurology, Dr. Cuevas; cardiology, Dr. Valera; and nephrology for hypertension, Dr. Saez; and Dr. Wall. Also, seen by physical therapy, by speech therapist, by pulmonary, Dr. Lang for possible sleep apnea, also leukocytosis, seen by Dr. Jorge Rashid, and for PEG tube, seen by GI, Dr. Day. The patient was maintained for wound preventions and has been sent for nursing to take care of her wound care and prevention. The patient also has diabetic evaluations and currently on Glucerna. DISCHARGE DIAGNOSES: 1. Acute cerebrovascular accident. Right frontal lobe infarction, large infarctions, middle cerebral, anterior cerebral artery territory. In the morning while he got up from sleep, unknown timing. 2. Hypertension, uncontrolled, poorly controlled as outpatient. 3. Hypercholesterolemia, diabetes type 2. 4. Chronic osteoarthritis, severe, bilateral lower extremities, who is walking with a walker. 5. Gastrointestinal, dysphagia, necessitating a PEG tube placement. 6. Coronary artery disease, chronic atrial fibrillation, on Eliquis. We will resume that and continue aspirin. PLAN: 1. Continue current treatment. We also noted as B12 deficiency. We will continue B12. 2. Depression. Continue Zoloft. 3. Hypercholesterolemia. Continue Lipitor and Zetia. 4. The patient has also low platelets, on repeat manual is 120, should be repeated as outpatient, followed up as outpatient. 5. Generalized weakness and left-side weakness. Plan is to send the patient for acute rehab at [facility] which has been arranged and for technical reasons could not leave the day before. We will be discharging the patient to acute rehabilitation. Case has been discussed in detail during the hospitalization as a senior science consultant with the family, with , and we will followup as outpatient. Lowell Mcmahon MD [facility] # [id number]
--- NOTE | 2017-02-08 09:29 | PN ---
DATE: SUBJECTIVE: The patient is seen in the hospital, seems comfortable, no distress, and waiting for transfers. PHYSICAL EXAMINATION GENERAL: The patient is lying supine, in no distress. VITAL SIGNS: Temperature is 98.3, heart rate is 81, blood pressure is 144/90, respirations are 18, and oxygen saturation is 95%. HEAD AND NECK: Normal. No JVD or thyromegaly.. CHEST: Clear and good air entry. CARDIAC: First sound and second sound normal, regular. ABDOMEN: Obese and nontender. PEG tube site is clean. EXTREMITIES: No edema. NEUROLOGIC: Left hemiplegia. LABORATORY STUDIES: Shows blood sugar running 180, in the 200 and 240. CBC shows white count of 11.4, hemoglobin of 16.6, hematocrit of 40.4, and platelets of 118, it is little low. On repeat manual platelet count is 120, which was within normal range. Need to be followed up as outpatient. IMPRESSION AND PLAN: 1. Acute cerebrovascular accident. Continue aspirin and continue Eliquis. 2. Hypertension. Continue metoprolol 50 mg b.i.d. The patient also currently on Cardizem CD 240 p.o. daily. The patient is being on digoxin, which was discontinued by the patient financial coordinator and the patient seems stable on the current medications plus hydralazine 10 mg intravenous p.r.n. for systolic less than 180 or 190. The patient seems stable otherwise. 3. Dementia. Continue Aricept 10 mg. 4. Prostate enlargement. Flomax. 5. Diabetes type 2. We will consider adding Lipitor, adding metformin, and Januvia to his current management. He is getting 50 mL of Glucerna per hour. 6. Hypercholesterolemia, history of coronary artery disease and history diastolic heart failure. Continue Lasix p.r.n. and continue potassium. Currently, he has no edema and seems stable, no need for Lasix at this time. 9. Depression. Continue Zoloft 25 mg, continue Zetia and B12, Protonix changed here, twice a day 40 mg, we are going to switch it to 20 mg daily and we will follow up clinically. Lowell Mcmahon MD [facility] # [id number]
[2017-02-08] MEDS: diltiaZEM 240 mg/24 Hours CD Cap PO SCH (10:56)
[2017-02-08] MEDS: Insulin Reg-LOW-Coverage SC SCH ×2 (10:57→12:40)
[2017-02-08] MEDS: Nystatin 100,000 Units/gm Topical Pow(15 gm) TOP SCH (10:58)
[2017-02-08] MEDS: Potassium Chloride 20 mEq/15 ml LIQ UD PO SCH (10:59)
[2017-02-08] MEDS: Sodium Chloride 0.9% 1,000 ML IV SCH (11:03)
--- NOTE | 2017-02-08 12:08 | CP.PCM.CON ---
<Jem Mccartneya - Last Filed: 02/08/17 12:04> History of Present Illness - History of Present Illness History of Present Illness: 81-year-old male with a past medical history of atrial fibrillation, on anticoagulation, hypertension, and IDDM, seen at bedside with attending Dr. Ash for right foot nonstageable superficial ulceration. Patient non responsive to verbal questioning at the time of visit. Unable to obtain thorough history due to patient not being alert and awake. Patient appears in NAD. Review of Systems - Constitutional Constitutional: As Per HPI Past Patient History - Infectious Disease Hx of Infectious Diseases: None - Past Social History Smoking Status: Never Smoked - CARDIAC Hx Cardiac Disorders: Yes Hx Hypertension: Yes - PULMONARY Hx Respiratory Disorders: No - NEUROLOGICAL Hx Neurological Disorder: Yes HX Cerebrovascular Accident: Yes (01-29-17 L SIDED) Hx Dizziness: Yes - HEENT Hx HEENT Problems: Yes (LASIK SURGERY BILATERAL EYE) - RENAL Hx Chronic Kidney Disease: No - ENDOCRINE/METABOLIC Hx Endocrine Disorders: Yes Hx Diabetes Mellitus Type 1: Yes Hx Diabetes Mellitus Type 2: Yes - HEMATOLOGICAL/ONCOLOGICAL Hx Blood Transfusions: (N/A) Hx Blood Transfusion Reaction: (N/A) - INTEGUMENTARY Hx Dermatological Problems: Yes Other/Comment: 01-29-17 BILATERAL LE LYMPEDEMA ,EDEMA +2 MORE TO LEFT WITH EXTENSIVE DARK BROWN SKIN DISCOLORATION.DUSKY,,DRY THICK SKIN. BILATERAL BUTTOCKS WITH EXTENSIVE DARKENED SKIN DERMATITIS,MASD IASD. RIGHT BALL OF FOOT HAS A LARGE OBLONG SHAPED CALLOUSED AREA MEASURE 2 X 3.2. - MUSCULOSKELETAL/RHEUMATOLOGICAL Hx Musculoskeletal Disorders: Yes Hx Falls: Yes Hx Unsteady Gait: Yes (CANE) - GASTROINTESTINAL Hx Gastrointestinal Disorders: Yes (HERNIORHAPPHY,H/O OF BLOODY STOOL) - GENITOURINARY/GYNECOLOGICAL Hx Genitourinary Disorders: Yes Hx Incontinence: Yes - PSYCHIATRIC Hx Psychophysiologic Disorder: No Hx Anxiety: No Hx Bipolar Disorder: No Hx Depression: No Hx Emotional Abuse: No Hx Hallucinations: No Hx Panic Symptoms: No Hx Post Traumatic Stress Disorder: No Hx Psychosis: No Hx Physical Abuse: No Hx Schizophrenia: No Hx Sexual Abuse: No Hx Substance Use: No - SURGICAL HISTORY Hx Surgeries: Yes (LASIK SURGERY TO BOTH EYES) - ANESTHESIA Hx Anesthesia Reactions: No Hx Malignant Hyperthermia: No Meds Allergies/Adverse Reactions: Allergies Allergy/AdvReac Type Severity Reaction Status Date / Time No Known Allergies Allergy Verified 01/29/17 12:52 - Medications Medications: Current Medications Apixaban (Eliquis) 5 mg PO BID [facility] PRN Reason: Protocol Last Admin: 02/08/17 10:57 Dose: 5 mg Atorvastatin Calcium (Lipitor) 80 mg PO DIN [facility] Last Admin: 02/07/17 18:37 Dose: 80 mg Clonidine HCl (Catapres-Tts3 0.3 Mg/24 Hr) 1 patch TD Q7D@1000 [facility] Cyanocobalamin (Vitamin B12 100 Mcg Tab) 100 mcg PO DAILY [facility] Last Admin: 02/08/17 11:01 Dose: 100 mcg Diltiazem HCl (Cardizem Cd) 240 mg PO DAILY [facility] Last Admin: 02/08/17 10:56 Dose: 240 mg Donepezil HCl (Aricept) 10 mg PO HS [facility] Last Admin: 02/07/17 22:05 Dose: 10 mg Ezetimibe (Zetia) 10 mg PO DAILY [facility] Last Admin: 02/08/17 11:01 Dose: 10 mg Hydralazine HCl (Apresoline) 10 mg IVP Q6 PRN PRN Reason: Systolic Blood Pressure Last Admin: 02/04/17 23:21 Dose: 10 mg Insulin Human Regular (Humulin R Low) 0 units SC [facility] PRN Reason: Protocol Last Admin: 02/08/17 10:57 Dose: 3 units Metformin HCl (Glucophage) 500 mg PO BID [facility] Last Admin: 02/08/17 10:57 Dose: 500 mg Metoprolol Tartrate (Lopressor) 50 mg PO BID [facility] Last Admin: 02/08/17 10:58 Dose: 50 mg Nystatin (Nystop Topical Powder) 0 gm TOP BID [facility] Last Admin: 02/08/17 10:58 Dose: 1 applic Pantoprazole Sodium (Protonix Ec Tab) 40 mg PO 0600 [facility] Last Admin: 02/08/17 11:01 Dose: 40 mg Potassium Chloride (Potassium Chloride Oral Soln) 20 meq PO 0800 [facility] Last Admin: 02/08/17 10:59 Dose: 20 meq Sertraline HCl (Zoloft) 25 mg PO DAILY [facility] Last Admin: 02/08/17 11:02 Dose: 25 mg Sitagliptin Phosphate (Januvia) 100 mg PO DAILY [facility] Last Admin: 02/08/17 10:57 Dose: 100 mg Tamsulosin HCl (Flomax) 0.4 mg PO DAILY [facility] Last Admin: 02/08/17 10:57 Dose: 0.4 mg Valsartan (Diovan) 320 mg PO DAILY [facility] Last Admin: 01/31/17 09:40 Dose: Not Given Physical Exam - Constitutional Appears: Well, Non-toxic, No Acute Distress - Extremities Exam Additional comments: Vasc: lightly palpable DP and PT pulses, TG wnl, CFT < 4 sec to all digits neuro: grossly diminished derm: hyperkeratotic lesion that is hyperpigmented noted to right foot sub met 2 -4, mild malodor, no ascending cellulitis, no open lesions, no acute clinical signs of infection, no fluctuance ortho: no pain on palpation to right foot sub met 2-4 Results - Vital Signs Recent Vital Signs: Last Vital Signs Temp 97.7 F 02/08/17 06:00 Pulse 68 02/08/17 06:00 Resp 18 02/08/17 06:00 BP 135/71 02/08/17 06:00 Pulse Ox 99 02/08/17 06:00 - Labs Result Diagrams: 02/08/17 07:32 02/08/17 08:00 Labs: Laboratory Results - last 24 hr 02/07/17 02/07/17 02/08/17 15:57 21:45 07:19 WBC RBC Hgb Hct MCV MCH MCHC RDW Plt Count MPV Sodium Potassium Chloride Carbon Dioxide Anion Gap BUN Creatinine Est GFR ( Amer) Est GFR (Non-Af Amer) POC Glucose (mg/dL) 203 H 218 H 255 H Random Glucose Calcium Total Bilirubin AST ALT Alkaline Phosphatase Total Protein Albumin Globulin Albumin/Globulin Ratio 02/08/17 02/08/17 02/08/17 07:32 08:00 11:36 WBC 11.6 H RBC 4.57 Hgb 14.5 Hct 42.6 MCV 93.2 MCH 31.7 MCHC 34.0 RDW 13.1 Plt Count 125 MPV 12.7 H Sodium 142 Potassium 4.1 Chloride 108 H Carbon Dioxide 23 Anion Gap 15 BUN 24 H Creatinine 0.8 Est GFR ( Amer) > 60 Est GFR (Non-Af Amer) > 60 POC Glucose (mg/dL) 253 H Random Glucose 229 H Calcium 8.7 Total Bilirubin 0.8 AST 30 ALT 20 Alkaline Phosphatase 71 Total Protein 5.8 Albumin 2.8 L Globulin 3.0 Albumin/Globulin Ratio 0.9 L Assessment & Plan - Assessment and Plan (Free Text) Assessment: 81 y/o male seen at bedside for right foot unstageable superficial ulceration Plan: patient evaluated and chart reviewed seen at bedside with attending Dr. Ash labs and vitals reviewed; afebrile, WBC 11.6 Hyperkeratotic tissue of right foot debrided with #15 blade and sterile nippers - underlying nonstageable superficial ulceration noted cleansed ulcer, applied optifoam to plantar right foot podiatry will continue to follow while patient remains in house <Eulogio Ash - Last Filed: 02/08/17 14:24> Meds - Medications Medications: Current Medications Apixaban (Eliquis) 5 mg PO BID [facility] PRN Reason: Protocol Last Admin: 02/08/17 10:57 Dose: 5 mg Atorvastatin Calcium (Lipitor) 80 mg PO DIN [facility] Last Admin: 02/07/17 18:37 Dose: 80 mg Clonidine HCl (Catapres-Tts3 0.3 Mg/24 Hr) 1 patch TD Q7D@1000 [facility] Last Admin: 02/08/17 12:40 Dose: 1 patch Cyanocobalamin (Vitamin B12 100 Mcg Tab) 100 mcg PO DAILY [facility] Last Admin: 02/08/17 11:01 Dose: 100 mcg Diltiazem HCl (Cardizem Cd) 240 mg PO DAILY [facility] Last Admin: 02/08/17 10:56 Dose: 240 mg Donepezil HCl (Aricept) 10 mg PO HS [facility] Last Admin: 02/07/17 22:05 Dose: 10 mg Ezetimibe (Zetia) 10 mg PO DAILY [facility] Last Admin: 02/08/17 11:01 Dose: 10 mg Hydralazine HCl (Apresoline) 10 mg IVP Q6 PRN PRN Reason: Systolic Blood Pressure Last Admin: 02/04/17 23:21 Dose: 10 mg Insulin Human Regular (Humulin R Low) 0 units SC [facility] PRN Reason: Protocol Last Admin: 02/08/17 12:40 Dose: 3 units Metformin HCl (Glucophage) 500 mg PO BID [facility] Last Admin: 02/08/17 10:57 Dose: 500 mg Metoprolol Tartrate (Lopressor) 50 mg PO BID [facility] Last Admin: 02/08/17 10:58 Dose: 50 mg Nystatin (Nystop Topical Powder) 0 gm TOP BID [facility] Last Admin: 02/08/17 10:58 Dose: 1 applic Pantoprazole Sodium (Protonix Ec Tab) 40 mg PO 0600 [facility] Last Admin: 02/08/17 11:01 Dose: 40 mg Potassium Chloride (Potassium Chloride Oral Soln) 20 meq PO 0800 [facility] Last Admin: 02/08/17 10:59 Dose: 20 meq Sertraline HCl (Zoloft) 25 mg PO DAILY [facility] Last Admin: 02/08/17 11:02 Dose: 25 mg Sitagliptin Phosphate (Januvia) 100 mg PO DAILY [facility] Last Admin: 02/08/17 10:57 Dose: 100 mg Tamsulosin HCl (Flomax) 0.4 mg PO DAILY [facility] Last Admin: 02/08/17 10:57 Dose: 0.4 mg Valsartan (Diovan) 320 mg PO DAILY [facility] Last Admin: 01/31/17 09:40 Dose: Not Given Results - Vital Signs Recent Vital Signs: Last Vital Signs Temp 97.7 F 02/08/17 06:00 Pulse 68 02/08/17 06:00 Resp 18 02/08/17 06:00 BP 135/71 02/08/17 06:00 Pulse Ox 99 02/08/17 06:00 - Labs Result Diagrams: 02/08/17 07:32 02/08/17 08:00 Labs: Laboratory Results - last 24 hr 02/07/17 02/07/17 02/08/17 15:57 21:45 07:19 WBC RBC Hgb Hct MCV MCH MCHC RDW Plt Count MPV Sodium Potassium Chloride Carbon Dioxide Anion Gap BUN Creatinine Est GFR ( Amer) Est GFR (Non-Af Amer) POC Glucose (mg/dL) 203 H 218 H 255 H Random Glucose Calcium Total Bilirubin AST ALT Alkaline Phosphatase Total Protein Albumin Globulin Albumin/Globulin Ratio 02/08/17 02/08/17 02/08/17 07:32 08:00 11:36 WBC 11.6 H RBC 4.57 Hgb 14.5 Hct 42.6 MCV 93.2 MCH 31.7 MCHC 34.0 RDW 13.1 Plt Count 125 MPV 12.7 H Sodium 142 Potassium 4.1 Chloride 108 H Carbon Dioxide 23 Anion Gap 15 BUN 24 H Creatinine 0.8 Est GFR ( Amer) > 60 Est GFR (Non-Af Amer) > 60 POC Glucose (mg/dL) 253 H Random Glucose 229 H Calcium 8.7 Total Bilirubin 0.8 AST 30 ALT 20 Alkaline Phosphatase 71 Total Protein 5.8 Albumin 2.8 L Globulin 3.0 Albumin/Globulin Ratio 0.9 L Attending/Attestation - Attestation I have personally seen and examined this patient.: Yes I have fully participated in the care of the patient.: Yes I have reviewed all pertinent clinical information: Yes
--- NOTE | 2017-02-08 13:29 | CP.PCM.PN ---
Subjective - Date & Time of Evaluation Date of Evaluation: 02/08/17 Time of Evaluation: 08:50 - Subjective Subjective: Neurology progress note, Dr. Cuevas service Patient seen and examined at bedside. No acute events overnight. Considerably more awake and alert today, answering some questions verbally and speaking in few-word answers. Following commands as able (still unable to consciously move left-sided extremities). S/p PEG tube, continuing to receive feeds and tolerating well. Objective - Vital Signs/Intake and Output Vital Signs (last 24 hours): Temp Pulse Resp BP Pulse Ox 97.7 F 68 18 135/71 99 02/08/17 06:00 02/08/17 06:00 02/08/17 06:00 02/08/17 06:00 02/08/17 06:00 Intake and Output: 02/08/17 02/08/17 06:59 18:59 Intake Total 600 Output Total 0 Balance 600 - Medications Medications: Current Medications Apixaban (Eliquis) 5 mg PO BID PAGE PRN Reason: Protocol Last Admin: 02/08/17 10:57 Dose: 5 mg Atorvastatin Calcium (Lipitor) 80 mg PO DIN [facility] Last Admin: 02/07/17 18:37 Dose: 80 mg Clonidine HCl (Catapres-Tts3 0.3 Mg/24 Hr) 1 patch TD Q7D@1000 [facility] Last Admin: 02/08/17 12:40 Dose: 1 patch Cyanocobalamin (Vitamin B12 100 Mcg Tab) 100 mcg PO DAILY [facility] Last Admin: 02/08/17 11:01 Dose: 100 mcg Diltiazem HCl (Cardizem Cd) 240 mg PO DAILY [facility] Last Admin: 02/08/17 10:56 Dose: 240 mg Donepezil HCl (Aricept) 10 mg PO HS [facility] Last Admin: 02/07/17 22:05 Dose: 10 mg Ezetimibe (Zetia) 10 mg PO DAILY [facility] Last Admin: 02/08/17 11:01 Dose: 10 mg Hydralazine HCl (Apresoline) 10 mg IVP Q6 PRN PRN Reason: Systolic Blood Pressure Last Admin: 02/04/17 23:21 Dose: 10 mg Insulin Human Regular (Humulin R Low) 0 units SC ACHS PAGE PRN Reason: Protocol Last Admin: 02/08/17 12:40 Dose: 3 units Metformin HCl (Glucophage) 500 mg PO BID [facility] Last Admin: 02/08/17 10:57 Dose: 500 mg Metoprolol Tartrate (Lopressor) 50 mg PO BID [facility] Last Admin: 02/08/17 10:58 Dose: 50 mg Nystatin (Nystop Topical Powder) 0 gm TOP BID [facility] Last Admin: 02/08/17 10:58 Dose: 1 applic Pantoprazole Sodium (Protonix Ec Tab) 40 mg PO 0600 [facility] Last Admin: 02/08/17 11:01 Dose: 40 mg Potassium Chloride (Potassium Chloride Oral Soln) 20 meq PO 0800 [facility] Last Admin: 02/08/17 10:59 Dose: 20 meq Sertraline HCl (Zoloft) 25 mg PO DAILY [facility] Last Admin: 02/08/17 11:02 Dose: 25 mg Sitagliptin Phosphate (Januvia) 100 mg PO DAILY [facility] Last Admin: 02/08/17 10:57 Dose: 100 mg Tamsulosin HCl (Flomax) 0.4 mg PO DAILY [facility] Last Admin: 02/08/17 10:57 Dose: 0.4 mg Valsartan (Diovan) 320 mg PO DAILY [facility] Last Admin: 01/31/17 09:40 Dose: Not Given - Labs Labs: 02/08/17 07:32 02/08/17 08:00 PT 10.9 Seconds (9.9-11.8) 01/29/17 10:45 INR 1.01 (0.93-1.08) 01/29/17 10:45 APTT 27.3 Seconds (23.7-30.8) 01/29/17 10:45 - Additional Findings Additional findings: - Constitutional Appears: Non-toxic, No Acute Distress - Head Exam Head Exam: ATRAUMATIC. absent: NORMAL INSPECTION Left sided facial drop/paralysis of muscles of facial expression, eyelids equally open Slurred speech, but able to sufficiently enunciate few-word answers, yes and no answers - Eye Exam Eye Exam: absent: Conjunctival injection, Scleral icterus Pupil Exam: Unequal. absent: Irregular Additional comments: Moving eyes to track staff and visual stimuli within bilateral visual wilson, no gross nystagmus PERRL bilaterally - ENT Exam ENT Exam: Mucous Membranes Moist, Wearing CPAP mask - Neck Exam Neck Exam: absent: Full ROM (only moving eyes to track across room, as per son pt is intentionally holding head to left side due to neck pain) - Respiratory Exam Respiratory Exam: Decreased Breath Sounds (mildly decreased breath sounds in all wilson), Clear to Ausculation Bilateral, NORMAL BREATHING PATTERN. absent: Accessory Muscle Use, Chest Wall Tenderness, Prolonged Expiratory Phase, Rales, Rhonchi, Wheezes - Cardiovascular Exam Cardiovascular Exam: Irregularly Irregular, +S1, +S2. absent: Tachycardia, Bradycardia, JVD, +S4 - GI/Abdominal Exam GI & Abdominal Exam: Soft, Normal Bowel Sounds. absent: Distended, Firm, Rigid , Diminished Bowel Sounds, Hyperactive Bowel Sounds, Hypoactive Bowel Sounds - Extremities Exam Moving right hand spontaneously and on command, some movement of RUE (motor strength 5/5 in wrist and with wave solder offbearer strength, 4/5 for remainder of RUE) No LLE or LUE movement No gross pitting edema in bilateral LE, no gross erythema or palpable temperature abnormalities +2 radials and +1 dorsalis pedis pulses bilaterally - Neurological Exam Additional comments: More awake and alert today, both eyes wide open and tracking staff in room throughout exam Motor strength in extremities as documented in extremities exam Visual L facial droop, Improved verbal status (answering with few-word answers, speech is slurred but sufficiently able to enunciate) Bilateral plantar reflexes intact - Psychiatric Exam Following commands, so comprehension appears intact As per son, recognizes family and friends, remembers nicknames for them, but when remembering why he is in hospital and comprehending his condition, becomes depressed and withdrawn - Skin Skin Exam: Dry, Intact, Normal Color, Warm Assessment and Plan - Assessment and Plan (Free Text) Assessment: This is a 81 yo Malay M with PMH of Afib on Eliquis, dyslipidemia, poorly controlled HTN, DM, prior CVA, and dementia normally on Aricep who presented to [facility] with acute onset of L-sided weakness and slurred speech on awakening, as reported by family. He was later determined to have an acute right MCA region infarct on MRI; not a tPA candidate due to unclear time of onset of stroke. CVA most likely 2/2 poorly controlled HTN and diffuse atherosclerotic disease with underlying dyslipidemia and diabetes. No signs of new bleeding on repeat scans of brain, so baby aspirin and low dose eliquis have been restarted as per Cardio. While there is a risk of hemorrhagic conversion of stroke while on anticoagulation, given the size of the stroke, the benefit of anticoagulation in a patient with known afib and prior stroke outweighs the risk of bleeding from anticoagulation. S/p PEG tube placement, tolerating feeds well. Patient remains neurologically stable at this time. Plan: 1) Asa 81mg and low dose eliquis restarted as per Cardio 2) S/p PEG tube, tolerating feeds well 3) Persisting L-sided weakness and neglect, will need care home rehab after resolution/stabilization of current condition 4) PT/OT 5) Thiamine for cognition 6) Continue Lipitor 80mg for stroke prevention Patient reviewed and discussed with attending, Dr. Cuevas.
--- NOTE | 2017-02-08 13:43 | PN ---
HOSPITAL REVIEW SUBJECTIVE: The patient is currently seen lying comfortable on bed. PEG tube feedings are in progress. Blood pressure is controlled. According to staff, the patient is scheduled for transfer to [facility] to continue therapy and rehabilitation. MEDICATIONS: Medication list reviewed. The patient is on p.r.n. hydralazine, Aricept, Cardizem CD, [id number] patch, Eliquis, Flomax, Glucophage, insulin, Januvia, Lipitor, Lopressor, nystatin topical powder, potassium, Protonix, vitamin B12, Zetia, and p.r.n. Zoloft. OBJECTIVE: INTAKE AND OUTPUT: Intake 600 and output not charted. VITAL SIGNS: Blood pressure presently is 135/71, temperature 97.7, respiratory rate 18 with a pulse of 68. HEENT: Normocephalic, atraumatic, mild facial asymmetry. NECK: Supple. No neck vein distention. CHEST: Clear to auscultation and percussion. No rales, no rhonchi or wheezing. CARDIOVASCULAR: Shows irregular S1 and S2. No S3, no S4, no rub. ABDOMEN: Soft. Bowel sounds normal. No rebound, no guarding, no masses. Positive PEG tube. EXTREMITIES: No lower extremity edema. No cyanosis or clubbing. NEUROLOGIC: Shows a dense left hemiparesis. LAB DATA AND IMAGING: CBC; white blood cell count today 11.6, hemoglobin 14.5, with a platelet count of 125,000. Chemistries today showed normal electrolytes. BUN 24 with a creatinine of 0.8. Glucose is 229. Calcium is 8.7. Albumin is 2.8. Liver enzymes are normal. ASSESSMENT: 1. Status post right-sided cerebrovascular accident with a dense left hemiparesis. The patient had failed speech and swallow evaluation and is currently receiving nutrition via percutaneous endoscopic gastrostomy tube. He is also receiving blood pressure medications via his percutaneous endoscopic gastrostomy tube with much better blood pressure control. 2. Status post uncontrolled hypertension with the placement of a percutaneous endoscopic gastrostomy tube and the ability to give medications via the percutaneous endoscopic gastrostomy tube, blood pressure control is improved. 3. History of non insulin-dependent diabetes mellitus, the patient continues on sliding scale insulin, glucose control is acceptable. 4. History of atrial fibrillation. The patient is currently on oral Cardizem. He is on Eliquis. He is on beta-abelino therapy. Heart rate is controlled. 5. History of hyperlipidemia. The patient will continue present medication entire therapy. 6. History of mild dementia, appears to be stable. 7. Status post mild hypokalemia. Last potassium level was 4.1. The patient continues on oral potassium supplements on an as needed basis. PLAN: 1. Agree with transfer to [facility] for continued rehabilitation and monitoring. 2. Agree with tube feedings. 3. Continue present blood pressure medication as his blood pressure remains controlled and heart rate is controlled. Nelson Wall MD
--- NOTE | 2017-02-08 14:12 | PN ---
DATE: 02/08/2017 SUBJECTIVE: The patient is in bed in no acute distress, nontoxic. PHYSICAL EXAMINATION: VITAL SIGNS: Temperature is 97, blood pressure is 130/70, respiratory rate of 18. HEENT: Unremarkable. NECK: Supple. LUNGS: Decreased breath sounds. HEART: Normal S1 and S2. ABDOMEN: Soft, nontender. LABORATORY EXAMINATION: Reveals a white count of 11,600, hemoglobin of 14, platelets of 125. BUN of 24, creatinine of 0.8. Procalcitonin is noted 0.2. Review of microbiology reveals urine with Staphylococcus lugdunensis. Blood cultures are negative. Repeat urine culture from 02/04 has no growth. REVIEW OF ORDERS: Reveals the patient to be off of antibiotics. ASSESSMENT AND PLAN: This is a 81-year-old Monegasque male with status post atypical healthcare-associated pneumonia, has improved, status post treatment, status post G-tube placement with Staphylococcus lugdunensis in the urine, asymptomatic bacteruria in this patient and was treated. The patient with acute cerebrovascular accident, ischemic with left front, and the patient with hypertensive, diabetes, coronary artery disease, dyslipidemia, status post treatment with doxycycline. Currently off of antibiotics, afebrile and high risk of developing nosocomial infection. Overall prognosis poor. Jorge Rashid MD
--- NOTE | 2017-02-08 17:20 | CP.PCM.PN ---
Subjective - Date & Time of Evaluation Date of Evaluation: 02/08/17 Time of Evaluation: 08:25 - Subjective Subjective: Seen and examined at the bedside earlier this morning, no acute overnight events reported. Patient is reported to be tolerating PEG tube feedings at 50 cc hours. Patient reported to have positive brown BM, no reports of diarrhea melena. Objective - Vital Signs/Intake and Output Vital Signs (last 24 hours): Temp Pulse Resp BP Pulse Ox 97.7 F 68 18 135/71 99 02/08/17 06:00 02/08/17 06:00 02/08/17 06:00 02/08/17 06:00 02/08/17 06:00 Intake and Output: 02/08/17 02/08/17 06:59 18:59 Intake Total 600 Output Total 0 Balance 600 - Labs Labs: 02/08/17 07:32 02/08/17 08:00 PT 10.9 Seconds (9.9-11.8) 01/29/17 10:45 INR 1.01 (0.93-1.08) 01/29/17 10:45 APTT 27.3 Seconds (23.7-30.8) 01/29/17 10:45 - Constitutional Appears: No Acute Distress - Head Exam Head Exam: NORMOCEPHALIC - Eye Exam Eye Exam: Normal appearance. absent: Scleral icterus - ENT Exam ENT Exam: Mucous Membranes Moist - Neck Exam Neck Exam: Normal Inspection - Respiratory Exam Respiratory Exam: Rhonchi, NORMAL BREATHING PATTERN. absent: Respiratory Distress - Cardiovascular Exam Cardiovascular Exam: +S1, +S2 - GI/Abdominal Exam GI & Abdominal Exam: Soft, Normal Bowel Sounds. absent: Guarding, Tenderness, Organomegaly (PEG in place, site dry and intact), Rebound - Extremities Exam Extremities Exam: Normal Capillary Refill. absent: Calf Tenderness, Pedal Edema - Neurological Exam Neurological Exam: Alert, Awake - Skin Skin Exam: Dry, Warm Assessment and Plan - Assessment and Plan (Free Text) Assessment: Assessment: CVA with left-sided weakness and acute right frontal lobe infarct status post repeat CT scan of the head this morning revealing infarct progression Dysphagiashe is status post EGD found to have duodenal ulcers, PEG insertion Atrial fibrillation Leukocytosis Hypertension [id number] diabetes Plan: Continue PEG feedings at 50 cc an hour, check residuals Aspiration precautions on Eliquis continue Protonix BID, on IV antibiotics Neurology follow-up as per cardiology plan is to transfer to [facility]. Seen and discussed with Dr. Day
--- NOTE | 2017-02-09 08:33 | PN ---
DATE: 02/08/2017 REASON FOR CONSULTATION: Followup AFib, CVA, and status post PEG placement. SUBJECTIVE: The patient denies any chest pain, shortness of breath, or any palpitation. PHYSICAL EXAMINATION: GENERAL: Much awake, alert, status post PEG, lying flat in the bed, and not in apparent distress. VITAL SIGNS: Temperature afebrile, heart rate 60, and blood pressure 135/71. HEENT: PERRLA intact. NECK: Supple. No carotid bruit. No thyromegaly. CHEST: Clear to auscultation. HEART: S1 and S2 regular. ABDOMEN: Soft. EXTREMITIES: Clubbing and cyanosis negative. LABORATORY DATA: WBC 11.6, hemoglobin 14.5, hematocrit 42.6, and platelet count 125. Chemistry shows sodium of 140, potassium , chloride , carbon dioxide , anion gap of 15, BUN 24, and creatinine 0.8. Total protein 5.0, albumin 2.8, and albumin-globulin ratio 0.9. IMPRESSION: Status post cerebrovascular accident, status post left-sided paralysis, weakness, chronic atrial fibrillation, status post percutaneous endoscopic gastrostomy placement, mild thrombocytopenia, and very noncompliance with the medication prior to arrival. RECOMMENDATIONS: Continue Eliquis 5 mg. Continue valsartan. Continue clonidine. Continue Cardizem CD 240. Continue beta-abelino. We will discontinue aspirin since the patient prevent radha-infarct hemorrhage. We will discontinue telemetry. Possible discharge. Heart rate is well controlled, AFib. Huber Valera MD
== END 2017-02-08 14:51 | DRG 64 ==
LOC: ED 10:19 → ERH 11:50 → 2RNO 13:48
PROVIDERS: ADMIT Internal Medicine; ATTEND Internal Medicine
PROC: 5A09557 Assistance with Respiratory Ventilation, Greater than 96 Consecutive Hours, Continuous Positive Airway Pressure (ICD-10-PCS; 2017-01-31)
PROC: 3E0G76Z Introduction of Nutritional Substance into Upper GI, Via Natural or Artificial Opening (ICD-10-PCS; 2017-02-02)
PROC: 0DJ08ZZ Inspection of Upper Intestinal Tract, Via Natural or Artificial Opening Endoscopic (ICD-10-PCS; 2017-02-04)
PROC: 0DH63UZ Insertion of Feeding Device into Stomach, Percutaneous Approach (ICD-10-PCS; principal; 2017-02-04 08:30)
DX: I63.521 Cerebral infarction due to unspecified occlusion or stenosis of right anterior cerebral artery (principal); G81.94 Hemiplegia, unspecified affecting left nondominant side; J18.9 Pneumonia, unspecified organism; E87.0 Hyperosmolality and hypernatremia; I11.0 Hypertensive heart disease with heart failure; D69.6 Thrombocytopenia, unspecified; R13.12 Dysphagia, oropharyngeal phase; R29.710 NIHSS score 10; R29.810 Facial weakness; K26.9 Duodenal ulcer, unspecified as acute or chronic, without hemorrhage or perforation; E11.621 Type 2 diabetes mellitus with foot ulcer; I50.32 Chronic diastolic (congestive) heart failure; F03.90 Unspecified dementia, unspecified severity, without behavioral disturbance, psychotic disturbance, mood disturbance, and anxiety; N39.0 Urinary tract infection, site not specified; I48.2 Chronic atrial fibrillation; E86.0 Dehydration; K25.9 Gastric ulcer, unspecified as acute or chronic, without hemorrhage or perforation; L97.519 Non-pressure chronic ulcer of other part of right foot with unspecified severity; E78.5 Hyperlipidemia, unspecified; E78.00 Pure hypercholesterolemia, unspecified; G47.30 Sleep apnea, unspecified; E87.6 Hypokalemia; I65.23 Occlusion and stenosis of bilateral carotid arteries; I25.10 Atherosclerotic heart disease of native coronary artery without angina pectoris; F41.9 Anxiety disorder, unspecified; R00.0 Tachycardia, unspecified; B95.8 Unspecified staphylococcus as the cause of diseases classified elsewhere; N40.0 Benign prostatic hyperplasia without lower urinary tract symptoms; M17.0 Bilateral primary osteoarthritis of knee; F32.9 Major depressive disorder, single episode, unspecified; E53.8 Deficiency of other specified B group vitamins; Y95 Nosocomial condition; Z79.84 Long term (current) use of oral hypoglycemic drugs; Z79.01 Long term (current) use of anticoagulants; Z91.14 Patient's other noncompliance with medication regimen; Z86.73 Personal history of transient ischemic attack (TIA), and cerebral infarction without residual deficits; Z79.4 Long term (current) use of insulin